=== PATIENT | female | born 1955 | race Caucasian/White ===

== ENCOUNTER 2016-03-30 10:35 | Outpatient (RCR) | payer BC ==
--- OUTSIDE RECORDS SUMMARY | 2016-03-12 10:26 | XMS REPORT | Continuity of Care Document ---
Author Author [facility] Organization [facility] Address Unknown Phone Unavailable Care Team Providers Care Director Of Home Care Hospice Name Role Phone TYSON TALAMANTES MD PCP Insurance Providers Payer Name Policy Number Subscriber Name Relationship Self Pay Verenice Ibarra 18 Self / Same As Patient Advance Directives Directive Response Recorded Date/Time Advance Directives No 02/22/16 12:51pm Health Care Power of Manager Ambulatory No 02/22/16 12:51pm Organ Donor No 02/22/16 12:51pm Resuscitation Status Full Code 02/22/16 12:51pm Chief Complaint and Reason for Visit Chief Complaint SEPSIS 2/2 PNEUMONIA (CAP-FAILED OUT PT [place]) Reason for Visit Sinusitis Urinary tract infection Volume depletion Problems Active Problems Medical Problem Onset Date Status Abnormal CT scan, colon Unknown Acute Costochondritis Unknown Acute Gastroesophageal reflux disease Unknown Acute LLL pneumonia Unknown Acute Pneumonia Unknown Acute Right upper quadrant abdominal pain Unknown Acute Sepsis Unknown Acute Sinusitis Unknown Acute Urinary tract infection Unknown Acute Volume depletion Unknown Acute Medications Current Home Medications Medication Dose Units Route Directions Days/Qty Instructions Start Date Ibuprofen 200 Mg 600 Mg Oral Every 8HRS as needed for Pain TAKES 3 ( 200 MG) TABLETS 11/27/15 Citalopram Hydrobromide 20 Mg 20 Mg Oral Bedtime LAST FILLED 12/08/15 # 30 02/22/16 Acetaminophen With Codeine 1 Each 1 Tab Oral Every 4HRS as needed for Cough 02/23/16 [Vitamin C] 1 Tab Oral Daily 02/23/16 Ipratropium/Albuterol Sulfate (Duoneb) 3 Ml 3 Ml Inhalation Respiratory Every Four Hours 60 USE NEBULIZER EVERY 4 HOURS X 3 DAYS THEN EVERY 6 HOURS X 5 DAYS THEN NEEDED FOR SHORTNESS OF BREATH 02/25/16 Guaifenesin/Dextromethorphan 5 Ml 10 Ml Oral Every 4HRS as needed for Cough 8 02/25/16 Cefdinir (Omnicef) 300 Mg 300 Mg Oral Twice A Day 14 02/25/16 Azithromycin 250 Mg 250 Mg Oral As Directed 6 TAKE 2 TABLETS ON DAY ONE THEN TAKE 1 TABLET DAILY FOR FOUR MORE DAYS 02/25/16 Lactobacillus Acidophilus 1 Each 1 Each Oral Three Times A Day 30 Past Home Medications Medication Directions Ordered Status [id number] 149-Hyal 1 Each Tablet, 1 Each Oral Daily 01/24/10 Discontinued Calcium Carb/Mag Oxide/Vit D3 1 Each Capsule, 1 Each Oral Daily 01/24/10 Discontinued Aspirin 81 Mg Tabec, 81 Mg Oral Daily 01/24/10 Discontinued Bupropion Hcl 150 Mg Tab.sr.24h, 150 Mg Oral Daily 01/24/10 Discontinued Omeprazole 20 Mg Tablet.dr, 20 Mg Oral Daily 01/24/10 Discontinued Niacin 500 Mg Tablet.sa, 500 Mg Oral Daily 01/24/10 Discontinued Prednisone 50 Mg Tab, 50 Mg Oral Daily 01/24/10 Discontinued Ranitidine Hcl 150 Mg Tablet, 1 Tab Oral Twice A Day 01/24/10 Discontinued Varenicline Tartrate 1 Mg Tablet, 1 Mg Oral Twice A Day 01/26/10 Discontinued Prednisone 50 Mg Tab, 1 Tab Oral Every Other Day 01/26/10 Discontinued Ranitidine Hcl 150 Mg Tablet, 1 Tab Oral Twice A Day 01/26/10 Discontinued Prednisone 20 Mg Tab, 20 Mg Oral Daily 01/27/10 Discontinued Prednisone 20 Mg Tab, 0.5 Tab Oral Daily 01/27/10 Discontinued Diphenhydramine Hcl 50 Mg Capsule, 1 Each Oral Three Times A Day 01/27/10 Discontinued Omeprazole 20 Mg Capsule.dr, 20 Mg Oral Daily 05/18/14 Discontinued Metoprolol Succinate 25 Mg Tab.sr.24h, 50 Mg Oral Daily 05/18/14 Discontinued [Nerve Medication] , 05/18/14 Discontinued Atorvastatin 20 Mg Tablet, 40 Mg Oral Daily 05/18/14 Discontinued Omeprazole 20 Mg Capsule.dr, 20 Mg Oral Twice A Day 05/18/14 Discontinued Levofloxacin 500 Mg Tab, 1 Each Oral Daily 05/18/14 Discontinued Citalopram Hydrobromide 20 Mg/10 Ml Solution, 20 Mg Oral Daily 05/29/14 Discontinued Meloxicam (Mobic) 15 Mg Tablet, 15 Mg Oral Bedtime 05/29/14 Discontinued Dexlansoprazole 60 Mg Cap., 60 Mg Oral Daily 05/29/14 Discontinued Sucralfate 1 Gm Tablet, 1 Gm Oral Four Times Daily 05/29/14 Discontinued [B 12] , 1 Ml Sub-Q Weekly 09/02/14 Discontinued Citalopram Hydrobromide 10 Mg Tablet, 20 Mg Oral Daily 09/02/14 Discontinued Oxycodone Hcl (Oxycodone Ir) 5 Mg Tab, 5 Mg Oral Every 4HRS as needed for Pain 09/05/14 Discontinued Metoprolol Tartrate 50 Mg Tablet, 50 Mg Oral Twice A Day 11/27/15 Discontinued Ciprofloxacin Hcl 500 Mg Tablet, 500 Mg Oral Twice A Day 11/27/15 Discontinued Metronidazole 500 Mg Tablet, 500 Mg Oral Three Times A Day 11/27/15 Discontinued Ondansetron 8 Mg Tab.rapdis, 8 Mg Oral Every 6 Hours as needed for Nausea 04/12 Discontinued Tramadol Hcl 50 Mg Tablet, 50 Mg Oral Every 4HRS as needed for Pain 11/27/15 Discontinued Levofloxacin 500 Mg Tablet, 500 Mg Oral Daily 02/10/16 Discontinued Acetaminophen With Codeine 1 Each Tablet, 1 Each Oral Every 4HRS as needed for Cough 02/10/16 Discontinued Metoprolol Succinate 50 Mg Tab.er.24h, 50 Mg Oral Bedtime 02/22/16 Discontinued Omeprazole 20 Mg Tablet., 40 Mg Oral Bedtime 02/22/16 Discontinued Levofloxacin 500 Mg Tablet, 500 Mg Oral Daily 02/23/16 Discontinued Social History Social History Problem Response Recorded Date/Time Alcohol Use Rarely Uses 09/05/2014 4:45pm Recreational Drug Use No 09/05/2014 4:45pm Recent Foreign Travel No 02/22/2016 12:59pm Recent Infectious Disease Exposure No 02/22/2016 12:59pm Hospitalization with Isolation Denies 02/25/2016 2:30pm Sexually Transmitted Disease No 02/22/2016 12:36pm HIV/AIDS No 02/22/2016 12:36pm Smoking Status Current Everyday Smoker 02/22/2016 12:53pm Type Used Cigarettes 02/25/2016 2:30pm Recent Hopitalizations No 02/22/2016 12:36pm Sexually Transmitted Disease No 02/22/2016 12:36pm Hospitalization with Isolation Denies 02/25/2016 2:30pm Query Response Start Date Stop Date Smoking Status Current Everyday Smoker Hospital Discharge Instructions Patient Instructions Physician Instructions Prescription: Transmitted to Pharmacy Patient Instructions: NO WORK UNTIL AFTER SEEN BY DR. TALAMANTES'S OFFICE AT THE BEGINNING OF NEXT WEEK Resume Normal Activity: Yes Discharge Diet: Regular Diet Diet for 24 Hours: No Alcohol Diet After 24 Hours: Clear Liquid if Nauseous Drink 6-8 Glasses of Fluid/Day: Yes Driving Instructions: No Driving for 24 Hours May Return to Work/School/Day: May Return to Work (AFTER 03/03/16) [facility] to [facility] For: ANY CONCERN FOR WORSENING SYMPTOMS OF SHORTNESS OF BREATH OR LIFETHREATENING ILLNESS Symptoms to Reoprt to DrRanjan: Fever Over 101 Degrees F, Pain/Pressure in Chest, Cough Up/Vomit Blood, Diarrhea(Persistant), Shortness of Breath For Problems or Questions: Contact Your Physician, Go to Emergency Room Infection Signs and Symptoms: Skin Itchy or Has a Rash Care Plan Patient Instructions:: NO WORK UNTIL AFTER SEEN BY DR. TALAMANTES'S OFFICE AT THE BEGINNING OF NEXTWEEK Plan of Care Discharge Date 02/25/16 11:20am Disposition 01 HOME, SELF-CARE Instructions/Education Provided Community-Acquired Pneumonia, Adult (DC) Prescriptions See Medication Section Follow-up Orders Chest Pa/Lat (2 View Referrals [facility] (Unspecified) - 03/02/16 Reason(s) for Referral: Pneumonia LLL pneumonia 3:00 pm ARRIVE AT 2:30 PM Care Plan and Goals See Discharge Instructions Section Functional Status Query Response Date Recorded Patient Orientation Person Place Time Situation February 25, 2016 2:30pm Comprehension Ability Understands Concepts February 22, 2016 12:33pm Allergies, Adverse Reactions, Alerts Allergen Type Severity Reaction Status Last Updated NKANo Known Allergies Allergy Unknown Active 08/17/05 Immunizations No immunization records. Vital Signs Acute Vital Signs Vital Response Date/Time Temperature (Fahrenheit) 98.9 degrees F (97.6 - 99.5) 02/25/2016 11:20am Temperature (Calculated Celsius) 37.77236 degrees C (36.4 - 37.5) 02/25/2016 8:00am Temperature Source Tympanic 02/25/2016 11:20am Pulse Rate (adult) 84 bpm (60 - 90) 02/25/2016 11:20am Respiratory Rate 20 bpm (12 - 24) 02/25/2016 11:20am O2 Sat by Pulse Oximetry 93 % (88 - 100) 02/25/2016 11:20am Blood Pressure 119/60 mm Hg 02/25/2016 11:20am Blood Pressure Mean 79 mm Hg 02/25/2016 8:00am Pain Numeric Pain Scale 0-No Pain 02/25/2016 11:20am Height (Feet) 5 feet 02/22/2016 12:59pm Height (Inches) 1.00 inches 02/22/2016 12:59pm Height (Calculated Centimeters) 154.480033 cm 02/22/2016 12:59pm Weight (Pounds) 145 pounds 02/22/2016 12:59pm Weight (Ounces) 0.0 oz 02/22/2016 12:59pm Weight (Calculated Grams) 87714.89 gm 02/22/2016 12:59pm Weight (Calculated Kilograms) 65.219548 kilograms 02/22/2016 12:59pm Calculated BMI 27.4 02/22/2016 12:59pm Capillary Refill Capillary Refill Less Than 3 Seconds 02/22/2016 8:26am Results Laboratory Results Test Name Result Units Flags Reference Collection Date/Time Result Date/ Time Comments White Blood Count 9.0 10^3/uL 4.3-11.0 02/10/2016 4:05pm 02/10/2016 4: 18pm Red Blood Count 4.13 10^6/uL L 4.35-5.85 02/10/2016 4:05pm 02/10/2016 4: 18pm Hemoglobin 12.9 G/DL 11.5-16.0 02/10/2016 4:05pm 02/10/2016 4:18pm Hematocrit 38 % 35-52 02/10/2016 4:05pm 02/10/2016 4:18pm Mean Corpuscular Volume 92 FL 80-99 02/10/2016 4:05pm 02/10/2016 4: 18pm Mean Corpuscular Hemoglobin 31 PG 25-34 02/10/2016 4:05pm 02/10/2016 4: 18pm Mean Corpuscular Hemoglobin Concent 34 G/DL 32-36 02/10/2016 4:05pm 4:18pm Red Cell Distribution Width 12.9 % 10.0-14.5 02/10/2016 4:05pm 2015 4:18pm Platelet Count 230 10^3/uL 130-400 02/10/2016 4:05pm 02/10/2016 4:18pm Mean Platelet Volume 10.4 FL 7.4-10.4 02/10/2016 4:05pm 02/10/2016 4: 18pm Neutrophils (%) (Auto) 63 % 42-75 02/10/2016 4:05pm 02/10/2016 4:18pm Lymphocytes (%) (Auto) 28 % 12-44 02/10/2016 4:05pm 02/10/2016 4:18pm Monocytes (%) (Auto) 7 % 0-12 02/10/2016 4:05pm 02/10/2016 4:18pm Eosinophils (%) (Auto) 2 % 0-10 02/10/2016 4:05pm 02/10/2016 4:18pm Basophils (%) (Auto) 1 % 0-10 02/10/2016 4:05pm 02/10/2016 4:18pm Neutrophils # (Auto) 5.7 X 10^3 1.8-7.8 02/10/2016 4:05pm 02/10/2016 4: 18pm Lymphocytes # (Auto) 2.5 X 10^3 1.0-4.0 02/10/2016 4:05pm 02/10/2016 4: 18pm Monocytes # (Auto) 0.6 X 10^3 0.0-1.0 02/10/2016 4:05pm 02/10/2016 4: 18pm Eosinophils # (Auto) 0.2 10^3/uL 0.0-0.3 02/10/2016 4:05pm 02/10/2016 4 :18pm Basophils # (Auto) 0.1 10^3/uL 0.0-0.1 02/10/2016 4:05pm 02/10/2016 4: 18pm Sodium Level 138 MMOL/L 135-145 02/10/2016 4:05pm 02/10/2016 4:36pm Potassium Level 3.8 MMOL/L 3.6-5.0 02/10/2016 4:05pm 02/10/2016 4:36pm Chloride Level 105 MMOL/L 98-107 02/10/2016 4:05pm 02/10/2016 4:36pm Carbon Dioxide Level 23 MMOL/L 21-32 02/10/2016 4:05pm 02/10/2016 4: 36pm Anion Gap 10 MMOL/L 5-14 02/10/2016 4:05pm 02/10/2016 4:36pm Blood Urea Nitrogen 15 MG/DL 7-18 02/10/2016 4:05pm 02/10/2016 4:36pm Creatinine 0.75 MG/DL 0.60-1.30 02/10/2016 4:05pm 02/10/2016 4:36pm BUN/Creatinine Ratio 20 02/10/2016 4:05pm 02/10/2016 4:36pm Estimat Glomerular Filtration Rate > 60 02/10/2016 4:05pm 2015 4:36pm GFR INTERPRETIVE DATA UNITS FOR ESTIMATED GFR (eGFR): mL/min/1.73 M2 REFERENCE RANGE FOR ESTIMATED GFR (eGFR) eGFR NORMAL eGFR >60 MODERATELY DECREASED eGFR 30-59 SEVERLY DECREASED eGFR 15-29 KIDNEY FAILURE <15 (OR DIALYSIS) Glucose Level 85 MG/DL 70-105 02/10/2016 4:05pm 02/10/2016 4:36pm Calcium Level 9.6 MG/DL 8.5-10.1 02/10/2016 4:0502/10/2016 4:36pm Lactic Acid Level 1.0 MMOL/L 0.5-2.0 02/10/2016 4:05pm 02/10/2016 4: 34pm Pending Laboratory Results Test Name Collection Date/Time Microbiology Results Procedure Source Result Collection Date/Time Result Date/Time Blood Culture Peripheral, Rt Ac No growth 02/10/2016 4:05pm 02/11/2016 2: 48pm Blood Culture Peripheral, Lt Ac No growth 02/10/2016 4:25pm 02/11/2016 2: 48pm Pending Microbiology Results Procedure Source Collection Date/Time Procedures Procedure Status Date Provider(s) Tracing only of electrocardiogram Completed 02/22/16 RITA BOLAND MD Encounters Encounter Location Arrival/Admit Date Discharge/Depart Date Attending Provider Discharged Inpatient [facility] 02/22/16 10:47am 11:20am MELVIN MORGAN DO Departed Emergency Room [facility] 02/10/16 3:34pm 02/09 4:48pm LUL DUPONT [employer]PER[employer] Recent Diagnosis Sinusitis Urinary tract infection Volume depletion
[2016-03-23 12:51] LABS: MEAN CORPUSCULAR HEMOGLOBIN 30 PG (25-34); MEAN CORPUSCULAR HGB CONC 31 G/DL (32-36); MEAN CORPUSCULAR VOLUME 97 FL (80-99); MEAN PLATELET VOLUME 11.9 FL (7.4-10.4); PLATELET COUNT 85 10^3/uL (130-400); RED BLOOD COUNT 3.25 10^6/uL (4.35-5.85); RED CELL DISTRIBUTION WIDTH 14.1 % (10.0-14.5); WHITE BLOOD COUNT 9.4 10^3/uL (4.3-11.0)
[2016-03-23 13:10] LABS: ANION GAP 12 MMOL/L (5-14); BLOOD UREA NITROGEN 24 MG/DL (7-18); BUN/CREATININE RATIO 31; CALCIUM 9.7 MG/DL (8.5-10.1); CARBON DIOXIDE 26 MMOL/L (21-32); CHLORIDE 101 MMOL/L (98-107); CREATININE SERUM 0.78 MG/DL (0.60-1.30); GFR ESTIMATED > 60; GLUCOSE 116 MG/DL (70-105); MAGNESIUM 2.1 MG/DL (1.8-2.4); POTASSIUM 4.3 MMOL/L (3.6-5.0); SODIUM 139 MMOL/L (135-145)
[~2016-03-30 10:35] MED LIST: ACET-2650 PO; ACET-789 PO; ACID1TAB PO; ALPR0.5T7 PO; ASCO-262 PO; ASP81TEC PO; ATOR20TA66 PO; ATOR40TA PO; AZIT250T5 PO; B 12 SQ; BUPR150T PO; CALC1CAP PO; CEFD300C3 PO; CIPR500T4 PO; CITA10TA PO; CITA20SO PO; CITA20TA7 PO; CODE118S2 PO; DEXL60CA PO; DICL100G18 TOP; DIPH50CA PO; DULO60CA6 PO; FAMOTIDINE 20MG/2ML IV (CANCER CTR) ONE; FLUT12AE4 IH; GLUC1TAB60 PO; GUAI480S5 PO; GUAI5SYR PO; HYDR-3816 PO; IBUP200C75 PO; IPRA3AMP INH; IPRA3AMP NEB; LACT1CAP45 PO; LEVO500T2 PO; LEVO500T69 PO; LEVO500T80 PO; LIDO700A6 TOP; LORazepam 0.5 MG (ATIVAN) TABLET CANCER CTR ONE; MELO-195 PO; METO-270 PO; METO-352 PO; METO25TA4 PO; METO50TA2 PO; METR500T21 PO; MORP100S3 PO; NERVE MEDICATION; NIA500ERT PO; NS IV 500 ML (CANCER CENTER) 500 ML ONE; OMEP20CA12 PO; OMEP20TA2 PO; OMEP20TA7 PO; ONDA8TAB13 PO; ONDA8TAB6 PO; OXC5T PO; POLY17PO23 PO; PRD20T PO; PRD50T PO; PROM25TA14 PO; RNT150T PO; SCOP1PAT TOP; SENN-20 PO; SUCR1TAB23 PO; TBO-300S SQ; TRAM50TA2 PO; VARE1TAB17 PO; VITAMIN C PO; diphenhydrAMINE 50 MG/ML INJ (CANCER CENTER) ONE
[2016-03-30 11:34] LABS: BASOPHILS # (AUTO) 0.3 10^3/uL (0.0-0.1); BASOPHILS % (AUTO) 1 % (0-10); EOSINOPHILS % (AUTO) 0 % (0-10); LYMPHOCYTES # (AUTO) 3.6 X 10^3 (1.0-4.0); LYMPHOCYTES % (AUTO) 19 % (12-44); MEAN CORPUSCULAR HEMOGLOBIN 30 PG (25-34); MEAN CORPUSCULAR HGB CONC 31 G/DL (32-36); MEAN CORPUSCULAR VOLUME 97 FL (80-99); MONOCYTES # (AUTO) 0.9 X 10^3 (0.0-1.0); MONOCYTES % (AUTO) 5 % (0-12); NEUTROPHILS # (AUTO) 14.3 X 10^3 (1.8-7.8); NEUTROPHILS % (AUTO) 75 % (42-75); PLATELET COUNT 165 10^3/uL (130-400); RED BLOOD COUNT 3.13 10^6/uL (4.35-5.85); RED CELL DISTRIBUTION WIDTH 15.7 % (10.0-14.5); WHITE BLOOD COUNT 19.1 10^3/uL (4.3-11.0)
[2016-03-30 12:31] LABS: ANION GAP 13 MMOL/L (5-14); BLOOD UREA NITROGEN 29 MG/DL (7-18); BUN/CREATININE RATIO 36; CALCIUM 9.2 MG/DL (8.5-10.1); CARBON DIOXIDE 26 MMOL/L (21-32); CHLORIDE 103 MMOL/L (98-107); GFR ESTIMATED > 60; GLUCOSE 87 MG/DL (70-105); POTASSIUM 4.5 MMOL/L (3.6-5.0); SODIUM 142 MMOL/L (135-145)
[2016-03-31] MEDS ORDERED: ALPR0.5T PO (12:41)
[2016-03-31] MEDS ORDERED: ONDA8TAB6 PO (12:41)
[2016-03-31] MEDS ORDERED: CODE118S2 PO (12:41)
[2016-03-31] MEDS ORDERED: POLY17PO6 PO (12:41)
[2016-03-31] MEDS ORDERED: SCOP1PAT TD (12:41)
[2016-03-31] MEDS ORDERED: HYDR-3816 PO (12:41)
[2016-03-31] MEDS ORDERED: PROM25TA14 PO (12:41)
[2016-03-31] MEDS ORDERED: MORP100S3 PO (12:41)
[2016-03-31] MEDS ORDERED: METO-270 PO (12:41)
[2016-03-31] MEDS ORDERED: SENN-1 PO (12:52)
[2016-03-31] MEDS ORDERED: DICL100G18 TP (12:52)
[2016-03-31] MEDS ORDERED: FLUT12AE4 IH (12:52)
== END 2016-04-08 | disposition home or self-care (01) ==
LOC: ONC 10:35
PROVIDERS: ATTEND Internal Medicine Hematology & Oncology
DX: Z51.11 Encounter for antineoplastic chemotherapy (principal); C34.92 Malignant neoplasm of unspecified part of left bronchus or lung; J91.0 Malignant pleural effusion; C78.7 Secondary malignant neoplasm of liver and intrahepatic bile duct; R00.0 Tachycardia, unspecified; I10 Essential (primary) hypertension; K21.9 Gastro-esophageal reflux disease without esophagitis; F17.210 Nicotine dependence, cigarettes, uncomplicated; Z86.73 Personal history of transient ischemic attack (TIA), and cerebral infarction without residual deficits; Z79.899 Other long term (current) drug therapy
CPT/HCPCS: 36415; 80048; 83735; 85025; 96367; 96375; 96413; 96417

== ENCOUNTER 2016-03-31 09:56 | Inpatient (IN) | payer BC ==
[2016-03-31] VITALS (12 sets, daily range): BP systolic 72–123; BP diastolic 53–74
[~2016-03-31] VITALS: Ht 154.9 cm; Wt 78.9 kg
[~2016-03-31 09:56] MED LIST changes: -FAMOTIDINE 20MG/2ML IV (CANCER CTR) ONE; -LORazepam 0.5 MG (ATIVAN) TABLET CANCER CTR ONE; -NS IV 500 ML (CANCER CENTER) 500 ML ONE; -diphenhydrAMINE 50 MG/ML INJ (CANCER CENTER) ONE
--- OUTSIDE RECORDS SUMMARY | 2016-03-31 10:02 | XMS REPORT | Continuity of Care Document ---
Author Author [facility] Organization [facility] Address Unknown Phone Unavailable Care Team Providers Care Pad Machine Offbearer Name Role Phone TYSON TALAMANTES MD PCP Insurance Providers Payer Name Policy Number Subscriber Name Relationship Self Pay Verenice Ibarra 18 Self / Same As Patient Advance Directives Directive Response Recorded Date/Time Advance Directives No 02/22/16 12:51pm Health Care Power of Motorcycle Subassembler No 02/22/16 12:51pm Organ Donor No 02/22/16 [...] Past Home Medications Medication Directions Ordered Status [id number] 149-Hyal 1 Each Tablet, 1 Each Oral [...] Follow-up Orders Chest Pa/Lat (2 View Referrals [facility] (Unspecified) - 03/02/16 Reason(s) for Referral: Pneumonia [...] - 99.5) 02/25/2016 11:20am Temperature (Calculated Celsius) 37.22253 degrees C (36.4 - 37.5) 02/25/2016 8:00am [...] 1.00 inches 02/22/2016 12:59pm Height (Calculated Centimeters) 154.202721 cm 02/22/2016 12:59pm Weight (Pounds) 145 pounds 02/22/2016 12:59pm Weight (Ounces) 0.0 oz 02/22/2016 12:59pm Weight (Calculated Grams) 70329.89 gm 02/22/2016 12:59pm Weight (Calculated Kilograms) 65.844769 kilograms 02/22/2016 12:59pm Calculated BMI 27.4 02/22/2016 [...] Discharge/Depart Date Attending Provider Discharged Inpatient [facility] 02/22/16 10:47am 11:20am MELVIN MORGAN DO Departed Emergency Room [facility] 02/10/16 3:34pm 02/09 4:48pm LUL DUPONT [employer] Recent Diagnosis Sinusitis Urinary tract infection Volume depletion
[2016-03-31 10:30] LABS: BASOPHILS # (AUTO) 0.1 10^3/uL (0.0-0.1); BASOPHILS % (AUTO) 1 % (0-10); EOSINOPHILS % (AUTO) 0 % (0-10); LYMPHOCYTES # (AUTO) 2.2 X 10^3 (1.0-4.0); LYMPHOCYTES % (AUTO) 9 % (12-44); MEAN CORPUSCULAR HEMOGLOBIN 30 PG (25-34); MEAN CORPUSCULAR HGB CONC 32 G/DL (32-36); MEAN CORPUSCULAR VOLUME 95 FL (80-99); MEAN PLATELET VOLUME 10.1 FL (7.4-10.4); MONOCYTES # (AUTO) 1.3 X 10^3 (0.0-1.0); MONOCYTES % (AUTO) 5 % (0-12); NEUTROPHILS # (AUTO) 21.2 X 10^3 (1.8-7.8); NEUTROPHILS % (AUTO) 85 % (42-75); PLATELET COUNT 153 10^3/uL (130-400); RED BLOOD COUNT 3.11 10^6/uL (4.35-5.85); RED CELL DISTRIBUTION WIDTH 15.6 % (10.0-14.5); WHITE BLOOD COUNT 24.8 10^3/uL (4.3-11.0)
[2016-03-31] MEDS ORDERED: NS IV 1000 ML 2,000 ML IV PRN (10:30)
--- NOTE | 2016-03-31 10:32 | ED General ---
General Chief Complaint: Fever-Adult/Adol Stated Complaint: FEVER IRR LAB RESULTS Nursing Triage Note: TO ROOM 07 WITH COMPLAINTS OF ABNORMAL LABS WITH ROUTINE CHECK YESTERDAY AND NOT FEELING WELL STARTING LAST NIGHT. ALSO HAS HAD A FEVER OF 101. 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 ALSO TOOK HYDROCODONE AT 0900. Nursing Sepsis Screen: Possible Sepsis Risk Source of Information: Patient Exam Limitations: No Limitations History of Present Illness Time Seen by Provider: 10:22 Initial Comments Here with report of abnormal labs and a fever today. 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 She had labs drawn yesterday and had white count noted at 19,000. Today she had the fever. Sent here for further evaluation. She is chronically short of breath but not worse than typical. She does have chronic cough and that is about typical. She was on steroids and her last dose steroids was yesterday. Denies nausea or vomiting. Timing/Duration: 1-2 Days, Getting Worse Severity: Moderate Associated Systoms: Cough Fever/ChillsNo Nausea/Vomiting, Shortness of Air Allergies and Home Medications Allergies Coded Allergies: NKANo Known Allergies (Verified Allergy, Unknown, 03/12/16) Home Medications Acetaminophen 650 Mg Tablet.er 2 TAB PO Q8H PRN PRN PAIN (Reported) Alprazolam 0.5 Mg Tablet #90 0.5 MG PO Q4HR PRN PRN PAIN Prescribed by: TYSON SALCEDO on 03/19/16 0936 Ascorbate Calcium 500 Mg Tablet 500 MG PO DAILY (Reported) Atorvastatin Calcium 40 Mg Tablet 40 MG PO HS (Reported) Citalopram Hydrobromide 20 Mg Tablet 20 MG PO HS (Reported) Diclofenac Sodium 100 Gm Gel..gram. #3 2 GM TOP QID Prescribed by: SOULEYMANE GOMEZ on 03/19/16 1434 Fluticasone/Salmeterol 12 Gm Hfa.aer.ad #3 0 PUFF IH BID@,20 Prescribed by: SOULEYMANE GOMEZ on 03/19/16 1434 Hydrocodone/Acetaminophen 1 Each Tablet #120 1 EA PO Q6HR Prescribed by: TYSON SALCEDO on 03/19/16 0936 Ibuprofen 200 Mg Capsule 400-600 MG PO Q8H PRN PRN PAIN (Reported) TAKES 3 (200 MG) TABLETS Ipratropium/Albuterol Sulfate 3 Ml Ampul.neb 3 ML IH Q6H PRN PRN SHORTNESS OF BREATH (Reported) L. Acidophilus/Bulgaricus 1 Each Tablet #90 1 TAB.CHEW PO WM Prescribed by: TYSON SALCEDO on 03/19/16 0936 Lactobacillus Acidophilus 1 Each Capsule 10Days 1 CAP PO TID (Reported) #30 FILLED 02-25-16 Lidocaine 700 Mg Adh..patch #60 1 EA TOP DAILY Prescribed by: SOULEYMANE GOMEZ on 03/19/16 1434 Metoprolol Succinate 25 Mg Tab.er.24h #60 25 MG PO BID Prescribed by: TYSON SALCEDO on 03/19/1636 Morphine Sulfate 100 Mg/5 Ml Solution #30 10-20 MG PO Q2H PRN PRN PAIN Prescribed by: TYSON SALCEDO on 03/19/16 1038 Omeprazole 20 Mg Capsule.dr 20 MG PO DAILY (Reported) Ondansetron HCl 8 Mg Tablet #90 8 MG PO TID Prescribed by: TYSON SALCEDO on 03/19/16935 Polyethylene Glycol 3350 17 Gm Powd.pack #30 17 GM PO HS Prescribed by: TYSON SALCEDO on 03/19/1636 Prednisone 20 Mg Tab #22 20 MG PO DAILY Take 3 tabs(60mg)daily,decrease by 1/2 tab(10mg)every other day. Prescribed by: TYSON SALCEDO on 03/19/16 1042 Promethazine HCl 25 Mg Tablet #60 25 MG PO Q6H PRN PRN NAUSEA/VOMITING Prescribed by: TYSON SALCEDO on 03/19/16935 Promethazine HCl/Codeine 118 Ml Syrup #8 5 ML PO Q6HR PRN PRN COUGH Prescribed by: TYSON SALCEDO on 03/19/16935 Scopolamine 1 Each Patch.td72 #30 1.5 MG TOP Q72H Prescribed by: SOULEYMANE GOMEZ on 03/19/16 1434 Sennosides/Docusate Sodium 1 Each Tablet #60 1 EA PO BID Prescribed by: TYSON SALCEDO on 03/19/16935 Tbo-Filgrastim 300 Mcg/0.5 Ml Syringe #3 300 MCG SQ DAILY PT TO RECEIVE INJECTION AT HOSPITAL Prescribed by: TYSON SALCEDO on 03/19/16 0943 Constitutional: see HPI chills fever EENTM: no symptoms reported Respiratory: see HPI cough dyspnea on exertion short of breath Cardiovascular: no symptoms reported Gastrointestinal: no symptoms reportedNo nausea, No vomiting Genitourinary: no symptoms reported Musculoskeletal: no symptoms reported Skin: no symptoms reported Psychiatric/Neurological: No Symptoms Reported Hematologic/Lymphatic: No Symptoms Reported All Other Systems Reviewed Negative Unless Noted: Yes Past Dstlwlp-Yswizz-Omfcyh Hx Patient Social History Alcohol Use: Denies Use Recreational Drug Use: No Smoking Status: Former Smoker Type Used: Cigarettes 2nd Hand Smoke Exposure: Yes Recent Foreign Travel: No Contact w/Someone Who Travel: No Recent Infectious Disease Expo: No Recent Hopitalizations: No Physical Abuse Screen: No Sexual Abuse: No Immunizations Up To Date Tetanus Booster (TDap): Unknown Date of Influenza Vaccine: Dec 29, 2015 Seasonal Allergies Seasonal Allergies: No Surgeries HX Surgeries: Yes (RIGHT EYE REMOVED DUE TO CA, FOOT-BUIONECTOMY, HIATAL HERNIA ) Surgeries: Abdominal, Eye Surgery, Hysterectomy Respiratory Hx Respiratory Disorders: Yes Respiratory Disorders: Pneumonia Cardiovascular Hx Cardiac Disorders: Yes (TACHYCARDIA) Cardiac Disorders: Hypertension, Palpitations Neurological Hx Neurological Disorders: Yes (CVA 2004) Neurological Disorders: Stroke Reproductive System Hx Reproductive Disorders: No Sexually Transmitted Disease: No HIV/AIDS: No Female Reproductive Disorders: Endometriosis 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 Genitourinary Hx Genitourinary Disorders: No Gastrointestinal Hx Gastrointestinal Disorders: Yes (SURGICALLY REPAIRED) Gastrointestinal Disorders: Gastroesophageal Reflux, Hiatal Hernia Musculoskeletal Hx Musculoskeletal Disorders: Yes Endocrine Hx Endocrine Disorders: No HEENT HX ENT Disorders: Yes (ARTIFICIAL RIGHT EYE) HEENT Disorders: Cataract 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, SMALL CELL EXTENSIVE CA STAGE 4) Cancer: Lung Psychosocial Hx Psychiatric Problems: No Integumentary HX Skin/Integumentary Disorder: No Blood Transfusions Hx Blood Disorders: No Adverse Reaction to a Blood Tr: No Reviewed Nursing Assessment Reviewed/Agree w Nursing PMH: Yes Family Medical History Significant Family History: Heart Disease, Cancer Physical Exam-Suspected Sepsis Physical Exam Vital Signs Vital Sign - Last 12Hours 03/31/16 10:10 Temp 101.4 Pulse 109 Resp 18 B/P 93/65 Pulse Ox 95 Capillary Refill : Less Than 3 Seconds Blood Pressure Mean: 74 General Appearance: No Apparent Distress WD/WN HEENT: Pharynx Normal Other (right eye blind) Neck: Non Tender Supple Respiratory: Decreased Breath Sounds (left lung absent breath sounds in the middle and lower area.) Cardiovascular: Regular Rate, Rhythm No Murmur Gastrointestinal: Non Tender Soft Back: Normal Inspection No CVA Tenderness No Vertebral Tenderness Extremity: Non Tender No Calf Tenderness Neurologic/Psychiatric: Alert Oriented x3 Skin: normal color warm/dry Progress/Results/Core Measures Suspected Sepsis Recent Fever Within 48 Hours: Yes Infection Criteria Present: Suspected New Infection New/Unexplained Altered Menta: No Sepsis Screen: Possible Sepsis Risk Sepsis Diagnosis: SIRS Temperature:101.4 Pulse: 109 Respiratory Rate: 18 Laboratory Tests 03/31/16 10:15: White Blood Count 24.8H Blood Pressure 93 /65 Mean: 74 Laboratory Tests 03/31/16 10:15: Creatinine 0.83, INR Comment 0.9, Platelet Count 153, Total Bilirubin 0.5 Results/Orders Lab Results Laboratory Tests Test 03/31/16 10:15 03/31/16 10:30 Range/Units Activated Partial Thromboplast Time 24 24-35 SEC Alanine Aminotransferase (ALT/SGPT) 167 H 0-55 U/L Albumin 3.5 3.2-4.5 G/DL Alkaline Phosphatase 120 40-136 U/L Anion Gap 11 5-14 MMOL/L Anisocytosis SLIGHT Aspartate Amino Transf (AST/SGOT) 96 H 5-34 U/L BUN/Creatinine Ratio 28 Band Neutrophils 11 % Basophils # (Auto) 0.1 0.0-0.1 10^3/uL Basophils % (Manual) 0 % Basophils (%) (Auto) 1 0-10 % Blood Urea Nitrogen 23 H 7-18 MG/DL Calcium Level 9.8 8.5-10.1 MG/DL Carbon Dioxide Level 27 21-32 MMOL/L Chloride Level 96 L 98-107 MMOL/L Creatinine 0.83 0.60-1.30 MG/DL Eosinophils # (Auto) 0.0 0.0-0.3 10^3/uL Eosinophils % (Manual) 0 % Eosinophils (%) (Auto) 0 0-10 % Estimat Glomerular Filtration Rate > 60 Glucose Level 103 70-105 MG/DL Hematocrit 29 L 35-52 % Hemoglobin 9.4 L 11.5-16.0 G/DL INR Comment 0.9 0.8-1.4 Lactic Acid Level 1.8 0.5-2.0 MMOL/L Lymphocytes # (Auto) 2.2 1.0-4.0 X 10^3 Lymphocytes % (Manual) 8 % Lymphocytes (%) (Auto) 9 L 12-44 % Mean Corpuscular Hemoglobin 30 25-34 PG Mean Corpuscular Hemoglobin Concent 32 32-36 G/DL Mean Corpuscular Volume 95 80-99 FL Mean Platelet Volume 10.1 7.4-10.4 FL Monocytes # (Auto) 1.3 H 0.0-1.0 X 10^3 Monocytes % (Manual) 2 % Monocytes (%) (Auto) 5 0-12 % Neutrophils # (Auto) 21.2 H 1.8-7.8 X 10^3 Neutrophils % (Manual) 79 % Neutrophils (%) (Auto) 85 H 42-75 % Platelet Count 153 130-400 10^3/uL Polychromasia SLIGHT Potassium Level 4.2 3.6-5.0 MMOL/L Prothrombin Time 12.3 12.2-14.7 SEC Red Blood Count 3.11 L 4.35-5.85 10^6/uL Red Cell Distribution Width 15.6 H 10.0-14.5 % Sodium Level 134 L 135-145 MMOL/L Total Bilirubin 0.5 0.1-1.0 MG/DL Total Protein 5.8 L 6.4-8.2 G/DL White Blood Count 24.8 H 4.3-11.0 10^3/uL Urine Bacteria NEGATIVE /HPF Urine Bilirubin NEGATIVE NEGATIVE Urine Casts NONE /LPF Urine Clarity CLEAR Urine Color YELLOW Urine Crystals NONE /LPF Urine Culture Indicated NO Urine Glucose (UA) NEGATIVE NEGATIVE Urine Ketones NEGATIVE NEGATIVE Urine Leukocyte Esterase NEGATIVE NEGATIVE Urine Mucus NEGATIVE /LPF Urine Nitrite NEGATIVE NEGATIVE Urine Protein NEGATIVE NEGATIVE Urine RBC NONE /HPF Urine RBC (Auto) NEGATIVE NEGATIVE Urine Specific [place] 1.015 L 1.016-1.022 Urine Urobilinogen NORMAL NORMAL MG/DL Urine WBC NONE /HPF Urine White Blood Cell Casts /LPF Urine pH 6.5 5-9 My Orders Orders-DIVINA HENDERSON MD Cbc With Automated Diff (03/31/16 10:02) Comprehensive Metabolic Panel (03/31/16 10:02) Lactic Acid Analyzer (03/31/16 10:02) Blood Culture (03/31/16 10:02) Sputum Culture (03/31/16 10:02) Ua Culture If Indicated (03/31/16 10:02) Protime With Inr (03/31/16 10:02) Partial Thromboplastin Time (03/31/16 10:02) Chest 1 View, Ap/Pa Only (03/31/16 10:02) Saline Lock/Iv-Start (03/31/16 10:02) Vital Signs Adult Sepsis Patie Q1HR (03/31/16 10:02) Manual Differential (03/31/16 10:15) Saline Lock/Iv-Start (03/31/16 10:30) Ns Iv 1000 Ml (Sodium Chloride 0.9%) (03/31/16 10:30) Hydrocortisone Injection (Solu-Cortef In (03/31/16 11:00) Levofloxacin 750 Mg/150 Ml Iv (Levaquin (03/31/16 11:28) Medications Given in ED Current Medications Medications Dose Ordered Sig/Buzz Route Start Time Stop Time Status Last Admin Dose Admin Hydrocortisone Sodium Succinate 100 mg ONCE ONCE IV 03/31/16 11:00 03/31/16 11:02 DC 03/31/16 11:09 100 MG Sodium Chloride 2,000 ml @ 1,000 mls/hr PRN PRN IV 03/31/16 10:30 03/31/16 10:53 1,000 MLS/HR Vital Signs/I&O Vital Sign - Last 12Hours 03/31/16 03/31/16 03/31/16 10:10 10:56 12:00 Temp 101.4 100.1 99.0 Pulse 109 Resp 18 B/P 93/65 Pulse Ox 95 Capillary Refill : Less Than 3 Seconds Blood Pressure Mean: 74 Progress Note : Progress Note Seen and evaluated. IV, labs, chest x-ray, blood cultures ordered. Patient has tenuous blood pressure. Normal saline at 30 mL/kg IV ordered as a bolus over 2 hours. White count noted to be significantly elevated. Hydrocortisone 100 mg IV ordered and given due to hypotension and recent long-term steroid use. Levaquin and 750 mg IV ordered. I did discuss the case with Dr. Salcedo at 1207. Patient has findings of septic shock with hypotension that is improving somewhat after steroid and saline bolus. ICU admission indicated. All of findings and concerns discussed with patient and family who agree with plan. Diagnostic Imaging Diagonstic Imaging: Xray Plain Films/CT/US/NM/MRI: chest Comments NAME: JAMMIE IBARRA [facility] REC#: [id number] PT STATUS: REG ER : 1955 PHYSICIAN: DIVINA HENDERSON MD ADMIT DATE: 03/31/16/ER Signed Date of Exam: 03/31/16 CHEST 1 VIEW, AP/PA ONLY Portable upright radiograph of the chest. INDICATION: Fever. COMPARISON: 03/16/16. FINDINGS: There is opacification of most of the left hemithorax with suggestion of underlying large effusion and atelectasis in the left lung. The heart and mediastinum are slightly deviated to the left. The right lung is clear. No pneumothorax. Infusion port is seen with no change. IMPRESSION: Large left pleural effusion and left lung atelectasis. Underlying mass or consolidation could be obscured on the opacified area. Dictated by: Dictated on workstation # [id number] Dict: 03/31/16 1051 Trans: 03/31/16 1113 [id number] Interpreted by: AN LAWRENCE MD Electronically signed by:AN LAWRENCE MD 03/31/16 1115 Departure Communication Time/Spoke to Admitting Phy: 12:07 Impression Impression: Primary Impression: Pneumonia Qualified Code: J18.9 - Pneumonia, unspecified organism Additional Impressions: Small cell lung cancer Qualified Code: C34.92 - Malignant neoplasm of unspecified part of left bronchus or lung Septic shock Disposition: ADMITTED INPATIENT Condition: Critical Decision to Admit Reason: Admit from ER (General) Decision to Admit/Date: Mar 31, 2016 Time/Decision to Admit Time: 12:07 Departure-Patient Inst. Referrals: TYSON SALCEDO MD (PCP/Family) Primary Care Physician DIVINA HENDERSON MD Mar 31, 2016 10:32
[2016-03-31 10:38] LABS: BILIRUBIN,URINE NEGATIVE (NEGATIVE); KETONES,URINE NEGATIVE (NEGATIVE); LEUKOCYTE ESTERASE ,URINE NEGATIVE (NEGATIVE); NITRITE,URINE NEGATIVE (NEGATIVE); PH,URINE 6.5 (5-9); PROTEIN,URINE NEGATIVE (NEGATIVE); UROBILINOGEN,URINE NORMAL (NORMAL)
[2016-03-31 10:39] LABS: INR 0.9 (0.8-1.4); PROTHROMBIN TIME PATIENT 12.3 SEC (12.2-14.7)
[2016-03-31 10:48] LABS: ALANINE AMINOTRANSFERASE 167 U/L (0-55); ALBUMIN 3.5 G/DL (3.2-4.5); ANION GAP 11 MMOL/L (5-14); ASPARTATE AMINO TRANSFERASE 96 U/L (5-34); BILIRUBIN,TOTAL 0.5 MG/DL (0.1-1.0); BLOOD UREA NITROGEN 23 MG/DL (7-18); BUN/CREATININE RATIO 28; CALCIUM 9.8 MG/DL (8.5-10.1); CARBON DIOXIDE 27 MMOL/L (21-32); CHLORIDE 96 MMOL/L (98-107); CREATININE SERUM 0.83 MG/DL (0.60-1.30); GFR ESTIMATED > 60; GLUCOSE 103 MG/DL (70-105); POTASSIUM 4.2 MMOL/L (3.6-5.0); SODIUM 134 MMOL/L (135-145); TOTAL PROTEIN 5.8 G/DL (6.4-8.2)
[2016-03-31 10:54] LABS: ANISOCYTOSIS SLIGHT; BAND NEUTROPHILS 11 %; BASOPHILS % (MANUAL) 0 %; EOSINOPHILS % (MANUAL) 0 %; LYMPHOCYTES % (MANUAL) 8 %; NEUTROPHILS % (MANUAL) 79 %; POLYCHROMASIA SLIGHT
[2016-03-31] MEDS ORDERED: HYDROCORTISONE 100 MG/2 ML (Solu-CORTEF) VIAL IV ONE (11:00)
--- NOTE | 2016-03-31 11:02 | Diagnostic Imaging Report ---
Portable upright radiograph of the chest. INDICATION: Fever. COMPARISON: 03/16/16. FINDINGS: There is opacification of most of the left hemithorax with suggestion of underlying large effusion and atelectasis in the left lung. The heart and mediastinum are slightly deviated to the left. The right lung is clear. No pneumothorax. Infusion port is seen with no change. IMPRESSION: Large left pleural effusion and left lung atelectasis. Underlying mass or consolidation could be obscured on the opacified area. Dictated by: Dictated on workstation # [id number]
[2016-03-31] MEDS ORDERED: LEVOFLOXACIN 750 MG/150 ML IV 150 ML IV STA (11:28)
[2016-03-31] MEDS ORDERED: METO-270 PO (12:41)
[2016-03-31] MEDS ORDERED: POLY17PO6 PO (12:41)
[2016-03-31] MEDS ORDERED: HYDR-3816 PO (12:41)
[2016-03-31] MEDS ORDERED: ONDA8TAB6 PO (12:41)
[2016-03-31] MEDS ORDERED: ALPR0.5T PO (12:41)
[2016-03-31] MEDS ORDERED: SCOP1PAT TD (12:41)
[2016-03-31] MEDS ORDERED: CODE118S2 PO (12:41)
[2016-03-31] MEDS ORDERED: PROM25TA14 PO (12:41)
[2016-03-31] MEDS ORDERED: MORP100S3 PO (12:41)
[2016-03-31] MEDS ORDERED: FLUT12AE4 IH (12:52)
[2016-03-31] MEDS ORDERED: DICL100G18 TP (12:52)
[2016-03-31] MEDS ORDERED: SENN-1 PO (12:52)
[2016-03-31] MEDS ORDERED: PIPERACILLIN SODIUM/TAZOBACTAM 4.5 GM in NS (BAXTER MINI) 100 ML IV NR (13:35)
[2016-03-31] MEDS ORDERED: VANCOMYCIN 1 GM ADD-VANTAGE VIAL IV ONE (13:44)
[2016-03-31] MEDS ORDERED: PIPERACILLIN/TAZO 4.5 GM VIAL (ZOSYN) IV ONE (13:45)
[2016-03-31] MEDS ORDERED: NORMAL SALINE (BAXTER MINI) 0 ML IV ONE (13:45)
[2016-03-31] MEDS ORDERED: SODIUM CHLORIDE (ADD-VANTAGE) 250 ML ONE (13:45)
[2016-03-31] MEDS ORDERED: LEVOFLOXACIN 750 MG/150 ML IV 150 ML IV SCH (14:00)
[2016-03-31] MEDS ORDERED: VANCOMYCIN IV NR (14:02)
[2016-03-31] MEDS ORDERED: NS IV NR (14:02)
[2016-03-31] MEDS: NS IV 1000 ML 1,000 ML IV SCH ×3 (14:24→22:16)
[2016-03-31] MEDS ORDERED: NORMAL SALINE IV SCH (14:24)
[2016-03-31] MEDS ORDERED: VANCOMYCIN IV SCH (14:24)
[2016-03-31] MEDS: VASOPRESSIN INJECTION 20 UNIT in NS (IVPB) 100 ML IV SCH ×2 (15:33→21:49)
[2016-03-31] MEDS: NOREPINEPHRINE FOR DRIPS 4 MG in D5W 250 ML (IVPB) 250 ML IV SCH ×2 (15:33→20:09)
[2016-03-31] MEDS: HYDROCORTISONE 100 MG/2 ML (Solu-CORTEF) VIAL IV SCH ×2 (15:34→20:39)
[2016-03-31] MEDS ORDERED: HYDROcodone/APAP 7.5 MG/325 MG (LORTAB, LORCET PLUS) TABLET PO ONE (16:34)
[2016-03-31] MEDS: HYDROcodone/APAP 7.5 MG/325 MG (LORTAB, LORCET PLUS) TABLET PO PRN ×2 (16:42→23:10)
[2016-03-31] MEDS: inSUlin (REGULAR) HUMAN 1 UNIT/0.01 ML (CHARGE PER UNIT) SC SCH ×2 (16:47→21:00)
[2016-03-31 16:58] LABS: MEAN PLATELET VOLUME 9.4 FL (7.4-10.4); RED BLOOD COUNT 2.53 10^6/uL (4.35-5.85); RED CELL DISTRIBUTION WIDTH 15.6 % (10.0-14.5); WHITE BLOOD COUNT 18.5 10^3/uL (4.3-11.0)
[2016-03-31 17:17] LABS: ALANINE AMINOTRANSFERASE 126 U/L (0-55); ALBUMIN 2.9 G/DL (3.2-4.5); ANION GAP 10 MMOL/L (5-14); ASPARTATE AMINO TRANSFERASE 68 U/L (5-34); BILIRUBIN,TOTAL 0.3 MG/DL (0.1-1.0); BLOOD UREA NITROGEN 21 MG/DL (7-18); BUN/CREATININE RATIO 24; CALCIUM 8.6 MG/DL (8.5-10.1); CARBON DIOXIDE 23 MMOL/L (21-32); CHLORIDE 105 MMOL/L (98-107); CREATININE SERUM 0.89 MG/DL (0.60-1.30); GFR ESTIMATED > 60; GLUCOSE 134 MG/DL (70-105); POTASSIUM 4.2 MMOL/L (3.6-5.0); SODIUM 138 MMOL/L (135-145); TOTAL PROTEIN 4.8 G/DL (6.4-8.2)
--- NOTE | 2016-03-31 18:37 | History & Physicial ---
History of Present Illness History of Present Illness Reason for visit/HPI PT IS A 60 Y/O FEMALE WHO IS KNOWN TO ME FROM CLINIC AND PREVIOUS HOSPITALIZATIONS. THE PATIENT HAS A POST-OBSTRUCTIVE LESION IN HER LEFT LUNG AND HAS HAD ONE ROUND OF CHEMOTHERAPY X 1 ROUND IN FEBRUARY PRIOR TO DISCHARGE AND SECOND ROUND OF CHEMOTHERAPY WAS DUE TO BE GIVEN 04/05/16. THE PATIENT WAS SEEN IN THE OFFICE YESTERDAY AND WAS FEELING GOOD AT THAT TIME. SHE REPORTS THAT SHE HAS BEEN INTERMITTENTLY WALKING AROUND HER HOUSE WITHOUT HER OXYGEN ON, AND HAS FALLEN OUT OF HER BED. Date of Admission Mar 31, 2016 at 12:38 I consulted on this patient on 03/31/16 18:31 Attending Physician Tyson Salcedo MD Admitting Physician Tyson Salcedo MD Consult BOBO SAMUELS DO Allergies and Home Medications Allergies Coded Allergies: NKANo Known Allergies (Verified Allergy, Unknown, 03/12/16) Home Medications Acetaminophen 650 Mg Tablet.er 2 TAB PO Q8H PRN PRN PAIN (Reported) Alprazolam 0.5 Mg Tablet 0.5 MG PO Q4H PRN PRN ANXIETY (Reported) Ascorbate Calcium 500 Mg Tablet 500 MG PO DAILY (Reported) Atorvastatin Calcium 40 Mg Tablet 40 MG PO HS (Reported) Citalopram Hydrobromide 20 Mg Tablet 20 MG PO HS (Reported) Diclofenac Sodium 100 Gm Gel..gram. 2 GM TP QID (Reported) Fluticasone/Salmeterol 12 Gm Hfa.aer.ad 2 PUFF IH 0700,1900 (Reported) Hydrocodone/Acetaminophen 1 Each Tablet 1-2 TAB PO Q6H PRN PRN PAIN (Reported) Ibuprofen 200 Mg Capsule 600 MG PO Q8H PRN PRN PAIN (Reported) TAKES 3 (200 MG) TABLETS Ipratropium/Albuterol Sulfate 3 Ml Ampul.neb 3 ML NEB 0700,1100,1500,1900 ( Reported) Metoprolol Succinate 25 Mg Tab.er.24h 25 MG PO BID (Reported) Morphine Sulfate 100 Mg/5 Ml Solution 10-20 MG PO Q2H PRN PRN PAIN (Reported) Omeprazole 20 Mg Capsule.dr 20 MG PO DAILY (Reported) Ondansetron HCl 8 Mg Tablet 8 MG PO TID (Reported) Polyethylene Glycol 3350 17 Gm Powd.pack 17 GM PO HS PRN PRN CONSTIPATION ( Reported) Promethazine HCl 25 Mg Tablet 25 MG PO Q6H PRN PRN NAUSEA/VOMITING (Reported) Promethazine HCl/Codeine 118 Ml Syrup 5-10 ML PO Q6H PRN PRN COUGH (Reported) Scopolamine 1 Each Patch.td72 1 PATCH TD Q72H (Reported) Sennosides/Docusate Sodium 1 Each Tablet 1 TAB PO BID (Reported) Past Frkmwgl-Lbfwfi-Juzdil Hx Patient Social History Marrital Status: Number of Children: 4 Living Status: LIVES IN HER HOME - CHILDREN PROVIDING CARE FOR HER Employed/Student: employed (CURRENTLY ON 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 LEAVE FROM WORK) Alcohol Use: Denies Use Recreational Drug Use: No Smoking Status: Former Smoker Type Used: Cigarettes 2nd Hand Smoke Exposure: Yes Physical Abuse Screen: No Sexual Abuse: No Recent Foreign Travel: No Contact w/other who traveled: No Recent Hopitalizations: No Recent Infectious Disease Expo: No Immunizations Up To Date Tetanus Booster (TDap): Unknown Date of Influenza Vaccine: Dec 29, 2015 Seasonal Allergies Seasonal Allergies: No Surgeries HX Surgeries: Yes (RIGHT EYE REMOVED DUE TO CA, FOOT-BUIONECTOMY, HIATAL HERNIA ) Surgeries: Abdominal, Eye Surgery, Hysterectomy Respiratory Hx Respiratory Disorders: Yes (LUNG CANCER) Cardiovascular Hx Cardiovascular Disorders: Yes (TACHYCARDIA) Cardiac Disorders: Hypertension, Palpitations Neurological Hx Neurological Disorders: Yes (CVA 2004) Neurological Disorders: Stroke Reproductive System : No Hx Reproductive Disorders: No Sexually Transmitted Disease: No HIV/AIDS: No Female Reproductive Disorders: Endometriosis 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 Genitourinary Hx Genitourinary Disorders: No Gastrointestinal Hx Gastrointestinal Disorders: Yes (SURGICALLY REPAIRED) Gastrointestinal Disorders: Gastroesophageal Reflux, Hiatal Hernia Musculoskeletal Hx Musculoskeletal Disorders: Yes Musculoskeletal Disorders: Arthritis Endocrine Hx Endocrine Disorders: No HEENT HX ENT Disorders: Yes (ARTIFICIAL RIGHT EYE) HEENT Disorders: Cataract 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, SMALL CELL EXTENSIVE CA STAGE 4) Cancer: Lung Psychosocial Hx Psychiatric Problems: Yes Behavioral Health Disorders: Anxiety, Depression Integumentary HX Skin/Integumentary Disorder: No Blood Transfusions Hx Blood Disorders: No Adverse Reaction to a Blood Tr: No Reviewed Nursing Assessment Reviewed/Agree w Nursing PMH: Yes Family Medical History Significant Family History: Heart Disease, Cancer Constitutional: fever malaise weakness EENTM: vision loss (CHRONIC)No hoarseness, No throat swelling Respiratory: cough dyspnea on exertion short of breath Cardiovascular: No chest pain, No edema, No palpitations Gastrointestinal: No abdominal pain, constipation (INTERMITTENT) Genitourinary: No decreased output, No dysuria, frequency Musculoskeletal: No back pain, No muscle weakness Skin: no symptoms reported Psychiatric/Neurological: AnxietyDenies Headache, Denies Numbness, Denies Paresthesia, Weakness All Other Systems Reviewed Negative Unless Noted: Yes Physical Exam Vital Signs Vital Sign - Last 12Hours 03/31/16 10:10 Temp 101.4 Pulse 109 Resp 18 B/P 93/65 Pulse Ox 95 O2 Delivery Nasal Cannula O2 Flow Rate 3 Capillary Refill : Less Than 3 Seconds General Appearance: No Apparent Distress WD/WN Eyes: Left Eye PERRL HEENT: Pharynx Normal Neck: Full Range of Motion Supple Respiratory: Chest Non Tender Decreased Breath Sounds (ON LEFT - NO BREATH SOUNDS, ON RIGHT CLEAR TO AUSCULTATION) Cardiovascular: Regular Rate, Rhythm No Edema Gastrointestinal: Normal Bowel Sounds No Organomegaly No Pulsatile Mass Non Tender Soft Rectal: Deferred Back: Normal Inspection No CVA Tenderness No Vertebral Tenderness Extremity: Normal Capillary Refill No Calf Tenderness No Pedal Edema Neurologic/Psychiatric: Alert Oriented x3 No Motor/Sensory Deficits Normal 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 HYDROPNEUMOTHORAX -WITH PNEUMONIA - CONTINUE WITH TREATMENT OF POST- OBSTRUCTIVE PNEUMONIA. PT RECENTLY OFF OF STEROIDS - PT GIVEN STRESS DOSE OF STEROIDS TODAY. CONSULT PLACED TO DR. SAMUELS WHO WILL SEE PT TOMORROW. SMALL CELL LUNG CANCER - PT NOT DUE TO REPEAT CHEMOTHERAPY UNTIL 04/05/16, WILL CONSULT ONCOLOGY TOMORROW IF NEEDED. COUGH - CONTINUE WITH CURRENT COUGH MEDICATIONS POST-OBSTRUCTIVE PNEUMONIA -STARTED ON ANTIBIOTICS COPD DUE TO PERSISTENT TOBACCOISM - MONITOR SYMPTOMS UNCONTROLLED PAIN - RESTART HYDROCODONE. CHRONIC NAUSEA - RESTART ZOFRAN, SCOPOLAMINE PATCH, PROMETHAZINE Admission Diagnosis SEPSIS LEUKOCYTOSIS HYDROPNEUMOTHORAX POST-OBSTRUCTIVE PNEUMONIA SMALL CELL LUNG CANCER DYSPNEA HYPOTENSION TACHYCARDIA CHEST PAIN NAUSEA Clinical Quality Measures DVT/VTE Risk/Contraindication: Risk Factor Score Per Nursin RFS Level Per Nursing on Admit: 4+=Very High TYSON SALCEDO MD Mar 31, 2016 18:37
[2016-03-31] MEDS ORDERED: SCOPOLAMINE 1.5 MG (TRANSDERM-SCOP) PATCH TOP SCH (18:45)
[2016-03-31] MEDS ORDERED: NON-FORMULARY MEDICATION 1 EA EA (Ibuprofen 600 MG) PO PRN (18:45)
[2016-03-31] MEDS ORDERED: POLYETHYLENE GLYCOL 17 GM (MIRALAX) PACK PO PRN (18:45)
[2016-03-31] MEDS: RT-ADVAIR HFA 115/21 MCG PER PUFF IH SCH (20:05)
[2016-03-31] MEDS: ATORVASTATIN 40 MG (LIPITOR) TABLET PO SCH (20:38)
[2016-03-31] MEDS: DICLOFENAC 1% GEL 100 GM (VOLTAREN) TUBE TP SCH (20:38)
[2016-03-31] MEDS: PROMETHAZINE 25 MG (PHENERGAN) TAB PO PRN (20:38)
[2016-03-31] MEDS: LACTOBACILLUS Acidoph/Bulgar (LACTINEX/FLORANEX) TAB PO SCH (20:38)
[2016-03-31] MEDS: IBUPROFEN 600 MG (MOTRIN) TAB PO PRN (20:38)
[2016-03-31] MEDS: SENNA W/DOCUSATE (SENOKOT S) TABLET PO SCH (20:39)
[2016-03-31] MEDS: ENOXAPARIN 40 MG/0.4 ML (LOVENOX) SYR SC SCH (20:39)
[2016-03-31] MEDS: PIPERACILLIN SODIUM/TAZOBACTAM 4.5 GM in NORMAL SALINE (BAXTER MINI) 100 ML IV SCH (20:40)
[2016-04-01] VITALS (15 sets, daily range): BP systolic 97–154; BP diastolic 64–81
[2016-04-01] MEDS: VANCOMYCIN 1 GM/NS 250 ML IVPB IV SCH ×4 (01:13→15:49)
[2016-04-01] MEDS: ONDANSETRON 4 MG/2 ML (SDV) Z0FRAN IVP PRN (01:13)
[2016-04-01] MEDS: HYDROCORTISONE 100 MG/2 ML (Solu-CORTEF) VIAL IV SCH ×4 (01:13→20:34)
[2016-04-01] MEDS: NS IV 1000 ML 1,000 ML IV SCH ×4 (02:18→20:59)
[2016-04-01] MEDS: NOREPINEPHRINE FOR DRIPS 4 MG in D5W 250 ML (IVPB) 250 ML IV SCH ×2 (02:49→08:45)
[2016-04-01] MEDS: PIPERACILLIN SODIUM/TAZOBACTAM 4.5 GM in NORMAL SALINE (BAXTER MINI) 100 ML IV SCH ×3 (04:23→20:33)
[2016-04-01 04:56] LABS: BASOPHILS % (AUTO) 0 % (0-10); EOSINOPHILS % (AUTO) 0 % (0-10); LYMPHOCYTES # (AUTO) 1.5 X 10^3 (1.0-4.0); LYMPHOCYTES % (AUTO) 9 % (12-44); MEAN CORPUSCULAR HEMOGLOBIN 31 PG (25-34); MEAN CORPUSCULAR HGB CONC 32 G/DL (32-36); MEAN CORPUSCULAR VOLUME 96 FL (80-99); MEAN PLATELET VOLUME 9.7 FL (7.4-10.4); MONOCYTES # (AUTO) 0.7 X 10^3 (0.0-1.0); MONOCYTES % (AUTO) 4 % (0-12); NEUTROPHILS # (AUTO) 14.7 X 10^3 (1.8-7.8); NEUTROPHILS % (AUTO) 87 % (42-75); PLATELET COUNT 130 10^3/uL (130-400); RED BLOOD COUNT 2.43 10^6/uL (4.35-5.85); RED CELL DISTRIBUTION WIDTH 15.9 % (10.0-14.5); WHITE BLOOD COUNT 16.9 10^3/uL (4.3-11.0)
[2016-04-01 05:20] LABS: ALANINE AMINOTRANSFERASE 112 U/L (0-55); ANION GAP 10 MMOL/L (5-14); ASPARTATE AMINO TRANSFERASE 57 U/L (5-34); BILIRUBIN,TOTAL 0.3 MG/DL (0.1-1.0); BLOOD UREA NITROGEN 21 MG/DL (7-18); BUN/CREATININE RATIO 32; CALCIUM 8.8 MG/DL (8.5-10.1); CARBON DIOXIDE 21 MMOL/L (21-32); CHLORIDE 109 MMOL/L (98-107); CREATININE SERUM 0.65 MG/DL (0.60-1.30); GFR ESTIMATED > 60; GLUCOSE 117 MG/DL (70-105); MAGNESIUM 1.7 MG/DL (1.8-2.4); PHOSPHORUS 3.8 MG/DL (2.3-4.7); POTASSIUM 3.8 MMOL/L (3.6-5.0); SODIUM 140 MMOL/L (135-145)
[2016-04-01] MEDS: inSUlin (REGULAR) HUMAN 1 UNIT/0.01 ML (CHARGE PER UNIT) SC SCH (06:00)
[2016-04-01] MEDS ORDERED: MAGNESIUM 1 GM/100 ML IVPB 100 ML IV SCH (06:00)
[2016-04-01] MEDS ORDERED: KCL 20 MEQ TAB (K-DUR) PO SCH (06:00)
[2016-04-01] MEDS ORDERED: POTASSIUM CL 10MEQ/50ML IVPB 50 ML IV SCH (06:00)
[2016-04-01] MEDS: VASOPRESSIN INJECTION 20 UNIT in NS (IVPB) 100 ML IV SCH (06:02)
[2016-04-01] MEDS: PANTOPRAZOLE 20 MG TABLET (PROTONIX) PO SCH (06:31)
[2016-04-01] MEDS: LACTOBACILLUS Acidoph/Bulgar (LACTINEX/FLORANEX) TAB PO SCH ×3 (06:31→15:57)
[2016-04-01] MEDS: MAGNESIUM 1 GM/100 ML IVPB 100 ML IV SCH ×2 (06:33→07:32)
[2016-04-01] MEDS: RT-ADVAIR HFA 115/21 MCG PER PUFF IH SCH ×2 (07:09→20:26)
[2016-04-01] MEDS: HYDROcodone/APAP 7.5 MG/325 MG (LORTAB, LORCET PLUS) TABLET PO PRN ×3 (07:35→17:51)
[2016-04-01] MEDS: ALPRAZolam 0.5 MG (XANAX) TAB PO PRN ×2 (07:35→17:53)
--- NOTE | 2016-04-01 07:43 | Pulmonary Consultation ---
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 Pt is s/p 1 chemo treatment and her next is scheduled for 04/05. Pt as admitted from cancer center secondary to fever, SOB and was found to have hypotension. PT with RN and family present states she wants to be a DNR. She would like to go home if at all possible. She wants to know if she can do home Abx. I am consulted for pulmonary management. Allergies and Home Medications Allergies Coded Allergies: [place] Known Allergies (Verified Allergy, Unknown, 03/12/16) Home Medications Acetaminophen 650 Mg Tablet.er 2 TAB PO Q8H PRN PRN PAIN (Reported) Alprazolam 0.5 Mg Tablet 0.5 MG PO Q4H PRN PRN ANXIETY (Reported) Ascorbate Calcium 500 Mg Tablet 500 MG PO DAILY (Reported) Atorvastatin Calcium 40 Mg Tablet 40 MG PO HS (Reported) Citalopram Hydrobromide 20 Mg Tablet 20 MG PO HS (Reported) Diclofenac Sodium 100 Gm Gel..gram. 2 GM TP QID (Reported) Fluticasone/Salmeterol 12 Gm Hfa.aer.ad 2 PUFF IH 0700,1900 (Reported) Hydrocodone/Acetaminophen 1 Each Tablet 1-2 TAB PO Q6H PRN PRN PAIN (Reported) Ibuprofen 200 Mg Capsule 600 MG PO Q8H PRN PRN PAIN (Reported) TAKES 3 (200 MG) TABLETS Ipratropium/Albuterol Sulfate 3 Ml Ampul.neb 3 ML NEB 0700,1100,1500,1900 ( Reported) Metoprolol Succinate 25 Mg Tab.er.24h 25 MG PO BID (Reported) Morphine Sulfate 100 Mg/5 Ml Solution 10-20 MG PO Q2H PRN PRN PAIN (Reported) Omeprazole 20 Mg Capsule.dr 20 MG PO DAILY (Reported) Ondansetron HCl 8 Mg Tablet 8 MG PO TID (Reported) Polyethylene Glycol 3350 17 Gm Powd.pack 17 GM PO HS PRN PRN CONSTIPATION ( Reported) Promethazine HCl 25 Mg Tablet 25 MG PO Q6H PRN PRN NAUSEA/VOMITING (Reported) Promethazine HCl/Codeine 118 Ml Syrup 5-10 ML PO Q6H PRN PRN COUGH (Reported) Scopolamine 1 Each Patch.td72 1 PATCH TD Q72H (Reported) Sennosides/Docusate Sodium 1 Each Tablet 1 TAB PO BID (Reported) Past Rwihiso-Ruufkp-Cpyfmq Hx Patient Social History Alcohol Use: Denies Use Recreational Drug Use: No Smoking Status: Former Smoker Type Used: Cigarettes 2nd Hand Smoke Exposure: Yes Recent Foreign Travel: No Contact w/Someone Who Travel: No Recent Infectious Disease Expo: No Recent Hopitalizations: No Physical Abuse Screen: No Sexual Abuse: No Immunizations Up To Date Tetanus Booster (TDap): Unknown Date of Influenza Vaccine: Dec 29, 2015 Seasonal Allergies Seasonal Allergies: No Surgeries HX Surgeries: Yes (RIGHT EYE REMOVED DUE TO CA, FOOT-BUIONECTOMY, HIATAL HERNIA ) Surgeries: Abdominal, Eye Surgery, Hysterectomy Respiratory Hx Respiratory Disorders: Yes (LUNG CANCER) Respiratory Disorders: Pneumonia Cardiovascular Hx Cardiac Disorders: Yes (TACHYCARDIA) Cardiac Disorders: Hypertension, Palpitations Neurological Hx Neurological Disorders: Yes (CVA 2004) Neurological Disorders: Stroke Reproductive System : No Hx Reproductive Disorders: No Sexually Transmitted Disease: No HIV/AIDS: No Female Reproductive Disorders: Endometriosis [employer] History: Hysterectomy Genitourinary Hx Genitourinary Disorders: No Gastrointestinal Hx Gastrointestinal Disorders: Yes (SURGICALLY REPAIRED) Gastrointestinal Disorders: Gastroesophageal Reflux, Hiatal Hernia Musculoskeletal Hx Musculoskeletal Disorders: Yes Musculoskeletal Disorders: Arthritis Endocrine Hx Endocrine Disorders: No HEENT HX ENT Disorders: Yes (ARTIFICIAL RIGHT EYE) HEENT Disorders: Cataract 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, SMALL CELL EXTENSIVE CA STAGE 4) Cancer: Lung Psychosocial Hx Psychiatric Problems: Yes Behavioral Health Disorders: Anxiety, Depression Integumentary HX Skin/Integumentary Disorder: No Blood Transfusions Hx Blood Disorders: No Adverse Reaction to a Blood Tr: No Reviewed Nursing Assessment Reviewed/Agree w Nursing PMH: Yes Family Medical History Significant Family History: Heart Disease, Cancer Exam Exam Vital Signs Date Time Temp Pulse Resp B/P Pulse Ox O2 Delivery O2 Flow Rate FiO2 04/01/16 07:10 95 Nasal Cannula 5.00 04/01/16 06:00 106 23 95 Nasal Cannula 5.00 04/01/16 05:00 105 16 92 Nasal Cannula 5.00 04/01/16 04:00 93 Nasal Cannula 5.00 04/01/16 04:00 99.1 111 11 97/74 94 Nasal Cannula 5.00 04/01/16 03:00 112 22 111/71 93 Nasal Cannula 5.00 04/01/16 02:00 115 18 101/65 94 Nasal Cannula 5.00 04/01/16 01:00 117 04/01/16 01:00 117 29 107/64 96 Nasal Cannula 5.00 04/01/16 00:00 100.7 121 17 109/65 92 Nasal Cannula 5.00 04/01/16 00:00 93 Nasal Cannula 5.00 03/31/16 23:00 118 17 123/73 94 Nasal Cannula 5.00 03/31/16 22:00 116 17 119/70 93 Nasal Cannula 5.00 03/31/16 21:00 116 19 122/66 94 Nasal Cannula 5.00 03/31/16 20:05 95 Nasal Cannula 5.00 03/31/16 20:00 99.6 112 21 103/65 96 Nasal Cannula 5.00 03/31/16 20:00 92 Nasal Cannula 5.00 03/31/16 19:00 105 23 107/64 96 Nasal Cannula 5.00 03/31/16 19:00 105 03/31/16 18:00 99 17 97/64 03/31/16 17:45 103 34 101/70 94 Nasal Cannula 5.00 03/31/16 16:45 98 16 99/61 94 Nasal Cannula 5.00 03/31/16 16:27 Nasal Cannula 5.00 03/31/16 16:17 98.1 95 Nasal Cannula 5.00 03/31/16 16:16 96 Nasal Cannula 5.00 03/31/16 15:45 98 13 89/56 95 Nasal Cannula 5.00 03/31/16 14:45 96 13 94/74 96 Nasal Cannula 5.00 03/31/16 14:35 Nasal Cannula 5.00 03/31/16 14:00 96 03/31/16 13:45 72/53 03/31/16 12:58 99.0 99 18 96 Nasal Cannula 3 03/31/16 12:00 99.0 03/31/16 10:56 100.1 03/31/16 10:10 101.4 109 18 93/65 95 03/31/16 10:10 Nasal Cannula 3 I & O 04/01/16 07:00 Intake Total 4170 ml Output Total 1200 ml Balance 2970 ml General Appearance: No Apparent Distress WD/WN HEENT: Pharynx Normal Neck: Full Range of Motion Supple Respiratory: Chest Non Tender Decreased Breath Sounds (ON LEFT - NO BREATH SOUNDS, ON RIGHT CLEAR TO AUSCULTATION) Cardiovascular: Regular Rate, Rhythm No Edema Capillary Refill: Less Than 3 Seconds Extremity: Normal Capillary Refill No Calf Tenderness No Pedal Edema Neurologic/Psychiatric: Alert Oriented x3 No Motor/Sensory Deficits Normal Mood/Affect director service II-XII Norm as Tested Skin: Normal Color Warm/Dry Lymphatic: No Adenopathy Results Lab Laboratory Tests 03/31/16 10:15 03/31/16 16:50 04/01/16 04:32 Assessment/Plan Assessment/Plan Sepsis - imporving -lucas cultures pending Endobronchial mass causing atelectasis and opacification of left lung -Check CT of lung Anemia -transfuse 1 unit PRBC -Monitor Post obstructive pneumonia Small cell lung cancer with mets Dyspnea - monitor Clinical Quality Measures DVT/VTE Risk/Contraindication: Risk Factor Score Per Nursin RFS Level Per Nursing on Admit: 4+=Very High BOBO SAMUELS DO Apr 01, 2016 07:43 RFS Level Per Nursing on Admit: 4+=Very High BOBO SAMUELS DO Apr 01, 2016 07:43
[2016-04-01] MEDS ORDERED: NS IV 500 ML 500 ML IV SCH (07:46)
--- NOTE | 2016-04-01 07:51 | Progress Note (SOAP) ---
Subjective Subjective/Events-last exam PT REPORTS THAT SHE IS FEELING BETTER TODAY - SHE STATES THAT HER BREATHING IS BETTER, STILL LABORED, BUT NOT HARD PREVIOUSLY. Review of Systems General: Fatigue Malaise HEENT: No Head Aches Pulmonary: Dyspnea Cough Cardiovascular: No: Chest Pain Gastrointestinal: : NauseaNo: Abdominal Pain Neurological: : WeaknessNo: Confusion Objective Exam Vital Signs Date Time Temp Pulse Resp B/P Pulse Ox O2 Delivery O2 Flow Rate FiO2 04/01/16 07:10 95 Nasal Cannula 5.00 04/01/16 06:00 106 23 95 Nasal Cannula 5.00 04/01/16 05:00 105 16 92 Nasal Cannula 5.00 04/01/16 04:00 93 Nasal Cannula 5.00 04/01/16 04:00 99.1 111 11 97/74 94 Nasal Cannula 5.00 04/01/16 03:00 112 22 111/71 93 Nasal Cannula 5.00 04/01/16 02:00 115 18 101/65 94 Nasal Cannula 5.00 04/01/16 01:00 117 04/01/16 01:00 117 29 107/64 96 Nasal Cannula 5.00 04/01/16 00:00 100.7 121 17 109/65 92 Nasal Cannula 5.00 04/01/16 00:00 93 Nasal Cannula 5.00 03/31/16 23:00 118 17 123/73 94 Nasal Cannula 5.00 03/31/16 22:00 116 17 119/70 93 Nasal Cannula 5.00 03/31/16 21:00 116 19 122/66 94 Nasal Cannula 5.00 03/31/16 20:05 95 Nasal Cannula 5.00 03/31/16 20:00 99.6 112 21 103/65 96 Nasal Cannula 5.00 03/31/16 20:00 92 Nasal Cannula 5.00 03/31/16 19:00 105 23 107/64 96 Nasal Cannula 5.00 03/31/16 19:00 105 03/31/16 18:00 99 17 97/64 03/31/16 17:45 103 34 101/70 94 Nasal Cannula 5.00 03/31/16 16:45 98 16 99/61 94 Nasal Cannula 5.00 03/31/16 16:27 Nasal Cannula 5.00 03/31/16 16:17 98.1 95 Nasal Cannula 5.00 03/31/16 16:16 96 Nasal Cannula 5.00 03/31/16 15:45 98 13 89/56 95 Nasal Cannula 5.00 03/31/16 14:45 96 13 94/74 96 Nasal Cannula 5.00 03/31/16 14:35 Nasal Cannula 5.00 03/31/16 14:00 96 03/31/16 13:45 72/53 03/31/16 12:58 99.0 99 18 96 Nasal Cannula 3 03/31/16 12:00 99.0 03/31/16 10:56 100.1 03/31/16 10:10 101.4 109 18 93/65 95 03/31/16 10:10 Nasal Cannula 3 I & O 04/01/16 07:00 Intake Total 4320 ml Output Total 1500 ml Balance 2820 ml Capillary Refill : Less Than 3 Seconds General Appearance: No Apparent Distress WD/WN HEENT: PERRL/EOMI Pharynx Normal Neck: Full Range of Motion Supple Respiratory: Chest Non Tender Decreased Breath Sounds (ON LEFT , CLEAR ON RIGHT) Cardiovascular: Regular Rate, Rhythm Gastrointestinal: normal bowel sounds non tender soft no organomegaly no pulsatile mass Extremity: Normal Capillary Refill No Calf Tenderness No Pedal Edema Neurologic/Psychiatric: Alert Oriented x3 No Motor/Sensory Deficits Normal Mood/Affect Skin: Warm/Dry Lymphatic: No Adenopathy Results Lab Laboratory Tests 03/31/16 10:15: Activated Partial Thromboplast Time 24, Alanine Aminotransferase (ALT/SGPT) 167H , Albumin 3.5, Alkaline Phosphatase 120, Anion Gap 11, Anisocytosis SLIGHT, Aspartate Amino Transf (AST/SGOT) 96H, BUN/Creatinine Ratio 28, Band Neutrophils 11, Basophils # (Auto) 0.1, Basophils % (Manual) 0, Basophils (%) ( Auto) 1, Blood Urea Nitrogen 23H, Calcium Level 9.8, Carbon Dioxide Level 27, Chloride Level 96L, Creatinine 0.83, Eosinophils # (Auto) 0.0, Eosinophils % ( Manual) 0, Eosinophils (%) (Auto) 0, Estimat Glomerular Filtration Rate > 60, Glucose Level 103, Hematocrit 29L, Hemoglobin 9.4L, INR Comment 0.9, Lactic Acid Level 1.8, Lymphocytes # (Auto) 2.2, Lymphocytes % (Manual) 8, Lymphocytes (%) (Auto) 9L, Mean Corpuscular Hemoglobin 30, Mean Corpuscular Hemoglobin Concent 32, Mean Corpuscular Volume 95, Mean Platelet Volume 10.1, Monocytes # ( Auto) 1.3H, Monocytes % (Manual) 2, Monocytes (%) (Auto) 5, Neutrophils # (Auto ) 21.2H, Neutrophils % (Manual) 79, Neutrophils (%) (Auto) 85H, Platelet Count 153, Polychromasia SLIGHT, Potassium Level 4.2, Prothrombin Time 12.3, Red Blood Count 3.11L, Red Cell Distribution Width 15.6H, Sodium Level 134L, Total Bilirubin 0.5, Total Protein 5.8L, White Blood Count 24.8H 03/31/16 10:30: Urine Bacteria NEGATIVE, Urine Bilirubin NEGATIVE, Urine Casts NONE, Urine Clarity CLEAR, Urine Color YELLOW, Urine Crystals NONE, Urine Culture Indicated NO, Urine Glucose (UA) NEGATIVE, Urine Ketones NEGATIVE, Urine Leukocyte Esterase NEGATIVE, Urine Mucus NEGATIVE, Urine Nitrite NEGATIVE, Urine Protein NEGATIVE, Urine RBC NONE, Urine RBC (Auto) NEGATIVE, Urine Specific [place] 1.015L, Urine Urobilinogen NORMAL, Urine WBC NONE, Urine White Blood Cell Casts , Urine pH 6.5 03/31/16 16:44: Glucometer 150H 03/31/16 16:50: Alanine Aminotransferase (ALT/SGPT) 126H, Albumin 2.9L, Alkaline Phosphatase 93 , Anion Gap 10, Aspartate Amino Transf (AST/SGOT) 68H, BUN/Creatinine Ratio 24, Blood Urea Nitrogen 21H, Calcium Level 8.6, Carbon Dioxide Level 23, Chloride Level 105, Creatinine 0.89, Estimat Glomerular Filtration Rate > 60, Glucose Level 134H, Hematocrit 24L, Hemoglobin 7.6L, Lactic Acid Level 1.5, Mean Corpuscular Hemoglobin 30, Mean Corpuscular Hemoglobin Concent 31L, Mean Corpuscular Volume 96, Mean Platelet Volume 9.4, Platelet Count 126L, Potassium Level 4.2, Red Blood Count 2.53L, Red Cell Distribution Width 15.6H, Sodium Level 138, Total Bilirubin 0.3, Total Protein 4.8L, White Blood Count 18.5H 04/01/16 04:32: Alanine Aminotransferase (ALT/SGPT) 112H, Albumin 3.0L, Alkaline Phosphatase 87 , Anion Gap 10, Aspartate Amino Transf (AST/SGOT) 57H, BUN/Creatinine Ratio 32, Basophils # (Auto) 0.0, Basophils (%) (Auto) 0, Blood Urea Nitrogen 21H, Calcium Level 8.8, Carbon Dioxide Level 21, Chloride Level 109H, Creatinine 0.65 , Eosinophils # (Auto) 0.0, Eosinophils (%) (Auto) 0, Estimat Glomerular Filtration Rate > 60, Glucose Level 117H, Hematocrit 23L, Hemoglobin 7.4L, Lymphocytes # (Auto) 1.5, Lymphocytes (%) (Auto) 9L, Magnesium Level 1.7L, Mean Corpuscular Hemoglobin 31, Mean Corpuscular Hemoglobin Concent 32, Mean Corpuscular Volume 96, Mean Platelet Volume 9.7, Monocytes # (Auto) 0.7, Monocytes (%) (Auto) 4, Neutrophils # (Auto) 14.7H, Neutrophils (%) (Auto) 87H, Phosphorus Level 3.8, Platelet Count 130, Potassium Level 3.8, Red Blood Count 2.43L, Red Cell Distribution Width 15.9H, Sodium Level 140, Total Bilirubin 0.3 , Total Protein 5.0L, White Blood Count 16.9H Assessment/Plan Assessment/Plan Assess & Plan/Chief Complaint SEPSIS LEUKOCYTOSIS HYDROPNEUMOTHORAX POST-OBSTRUCTIVE PNEUMONIA SMALL CELL LUNG CANCER DYSPNEA HYPOTENSION TACHYCARDIA CHEST PAIN CHRONIC NAUSEA SEPSIS WITH HYPOTENSION - PT ON FLUID REPLACEMENT PROTOCOL, CONTINUE WITH IV FLUIDS, TRIPLE ANTIBIOTIC THERAPY - ZOSYN, LEVAQUIN, VANCOMYCIN AND PRESSORS IF NEEDED. HYDROPNEUMOTHORAX -WITH PNEUMONIA - CONTINUE WITH TREATMENT OF POST- OBSTRUCTIVE PNEUMONIA. PT RECENTLY OFF OF STEROIDS - PT GIVEN STRESS DOSE OF STEROIDS TODAY. CONSULT PLACED TO DR. SAMUELS WHO WILL SEE PT TOMORROW. SMALL CELL LUNG CANCER - PT NOT DUE TO REPEAT CHEMOTHERAPY UNTIL 04/05/16, WILL CONSULT ONCOLOGY TOMORROW IF NEEDED. COUGH - CONTINUE WITH CURRENT COUGH MEDICATIONS POST-OBSTRUCTIVE PNEUMONIA -STARTED ON ANTIBIOTICS COPD DUE TO PERSISTENT TOBACCOISM - MONITOR SYMPTOMS UNCONTROLLED PAIN - RESTART HYDROCODONE. CHRONIC NAUSEA - RESTART ZOFRAN, SCOPOLAMINE PATCH, PROMETHAZINE ANEMIA - HGB 7.4, WILL TRANSFUSE THIS MORNING ONE UNIT OF BLOOD, REPEAT LABS IN MORNING. MILDLY ELEVATED LIVER ENZYMES - DUE TO HYPOTENSION - IMPROVING. Diagnosis/Problems: Clinical Quality Measures DVT/VTE Risk/Contraindication: Risk Factor Score Per Nursin RFS Level Per Nursing on Admit: 4+=Very High TYSON TALAMANTES MD Apr 01, 2016 07:51
[2016-04-01] MEDS ORDERED: diphenhydrAMINE 50 MG/ML INJ (BENADRYL) IVP SCH (08:00)
[2016-04-01] MEDS ORDERED: ACETAMINOPHEN 325 MG TABLET/CAPLET (TYLENOL) PO SCH (08:00)
[2016-04-01] MEDS ORDERED: NS 100 ML (IVPB) BAG IV ONE (08:15)
[2016-04-01] MEDS ORDERED: IOHEXOL 350 MG/ML 100 ML (OMNIPAQUE 350) VIAL IV ONE (08:15)
[2016-04-01] MEDS: SENNA W/DOCUSATE (SENOKOT S) TABLET PO SCH ×2 (08:44→20:34)
[2016-04-01] MEDS: DICLOFENAC 1% GEL 100 GM (VOLTAREN) TUBE TP SCH ×4 (08:44→20:35)
[2016-04-01] MEDS ORDERED: OMEPRAZOLE 20 MG (PriLOSEC) CAP NON-FORMULARY PO SCH (09:00)
--- NOTE | 2016-04-01 10:09 | Diagnostic Imaging Report ---
INDICATION: None given. TECHNIQUE: Single view chest at 4:44 a.m. CORRELATION STUDY: 03/31/2016. FINDINGS: There is now complete opacification of the left hemithorax likely owing to large pleural effusion with consolidated collapsed left lung. There is slight shift in the mediastinal structures towards the right hemithorax. Right lung field demonstrates slight increased interstitial markings. The heart size and mediastinum are largely obscured by the findings of the left chest. Likely small right pleural effusion. Left-sided Ynbozm-h-Guwr catheter appearing generally stable. Tip is in the indeterminate position within the azygos vein versus SVC. IMPRESSION: 1. Now complete opacification of the left hemithorax likely owing to large pleural effusion and collapsed consolidated left lung. 2. Evolving pulmonary interstitial markings in the right lung could be reflective of pulmonary edema versus developing interstitial infiltrates. Small right pleural effusion also now present. Dictated by: Dictated on workstation # [id number]
[2016-04-01] MEDS: IBUPROFEN 600 MG (MOTRIN) TAB PO PRN ×2 (10:50→20:34)
[2016-04-01] MEDS: LEVOFLOXACIN 750 MG/150 ML IV 150 ML IV SCH (11:02)
--- NOTE | 2016-04-01 11:31 | Diagnostic Imaging Report ---
PROCEDURE: CT chest with contrast only. TECHNIQUE: Multiple contiguous axial images were obtained through the chest after administration of intravenous contrast. INDICATION: Dyspnea. Small cell lung cancer. 75 mL of Omnipaque 350 is administered intravenously. COMPARISON: 03/12/2016 exam. FINDINGS: Again seen are large masses in the mediastinum up to 6 x 3 cm anterior to the stephane and extending craniocaudally about 7 cm. Large prevascular, right paratracheal, upper thoracic, right paraesophageal and large aortopulmonary window lymph node mass are also seen. The latter is 4.8 x 2.6 cm in size. Infracarinal mass is at least 5 x 5.4 cm, difficult to separate from the adjacent hilum on the right side. There is heterogenous enhancement in the central aspect of the lung and lower lobe difficult to differentiate from pulmonary atelectasis and consolidation with components of mass suspected. There is now complete atelectasis in the left upper lobe with increased moderate to large left pleural effusion. There is slight deviation of the trachea and mediastinal structures to the right side. The right lung is generally clear. Sections in the upper abdomen demonstrate a left hepatic lobe mass measuring 3.8 cm enlarged from 2.8 cm on the previous exam. The osseous structures demonstrate a lateral left ninth rib subacute fracture with callus formation with no definite underlying destructive mass. IMPRESSION: 1. Again seen large masses in the mediastinum and left hilum inseparable from the central aspect of the left lung with complete atelectasis and consolidation. There is particularly heterogenous density in the central aspect of the left lower lobe likely related to tumor infiltration. The bronchial tree in the left lung is obliterated from the lobar level. There is a moderate to large left pleural effusion. Overall no definite change in the masses seen in the chest. 2. Enlarged left hepatic lobe mass, now measuring up to 3.8 cm. Dictated by: Dictated on workstation # [id number]
[2016-04-01] MEDS ORDERED: TROUGH ORDER-PHARMACY XX NR (13:00)
--- NOTE | 2016-04-01 14:39 | Consultation ---
History of Present Illness History of Present Illness Patient Consulted On(lula/time) 04/01/16 14:34 Date of Admission 03/31/16 History of Present Illness This is a 60-year-old lady who was seen by me in consultation last month when she was found to have extensive disease small cell lung cancer. She is currently admitted with fever hypoxia shortness of breath and hypotension and was started on triple antibiotics as management for sepsis. Clinically she has improved with decrease in fever as well as improvement in her oxygenation and blood pressure status. She continues to report some dyspnea however. She states she had been doing well until one day prior to admission. Allergies and Home Medications Allergies Coded Allergies: NKANo Known Allergies (Verified Allergy, Unknown, 03/12/16) Home Medications Acetaminophen 650 Mg Tablet.er 2 TAB PO Q8H PRN PRN PAIN (Reported) Alprazolam 0.5 Mg Tablet 0.5 MG PO Q4H PRN PRN ANXIETY (Reported) Ascorbate Calcium 500 Mg Tablet 500 MG PO DAILY (Reported) Atorvastatin Calcium 40 Mg Tablet 40 MG PO HS (Reported) Citalopram Hydrobromide 20 Mg Tablet 20 MG PO HS (Reported) Diclofenac Sodium 100 Gm Gel..gram. 2 GM TP QID (Reported) Fluticasone/Salmeterol 12 Gm Hfa.aer.ad 2 PUFF IH 0700,1900 (Reported) Hydrocodone/Acetaminophen 1 Each Tablet 1-2 TAB PO Q6H PRN PRN PAIN (Reported) Ibuprofen 200 Mg Capsule 600 MG PO Q8H PRN PRN PAIN (Reported) TAKES 3 (200 MG) TABLETS Ipratropium/Albuterol Sulfate 3 Ml Ampul.neb 3 ML NEB 0700,1100,1500,1900 ( Reported) Metoprolol Succinate 25 Mg Tab.er.24h 25 MG PO BID (Reported) Morphine Sulfate 100 Mg/5 Ml Solution 10-20 MG PO Q2H PRN PRN PAIN (Reported) Omeprazole 20 Mg Capsule.dr 20 MG PO DAILY (Reported) Ondansetron HCl 8 Mg Tablet 8 MG PO TID (Reported) Polyethylene Glycol 3350 17 Gm Powd.pack 17 GM PO HS PRN PRN CONSTIPATION ( Reported) Promethazine HCl 25 Mg Tablet 25 MG PO Q6H PRN PRN NAUSEA/VOMITING (Reported) Promethazine HCl/Codeine 118 Ml Syrup 5-10 ML PO Q6H PRN PRN COUGH (Reported) Scopolamine 1 Each Patch.td72 1 PATCH TD Q72H (Reported) Sennosides/Docusate Sodium 1 Each Tablet 1 TAB PO BID (Reported) Past Enugnfw-Dzcrxc-Xpdezn Hx Patient Social History Alcohol Use: Denies Use Recreational Drug Use: No Smoking Status: Former Smoker Type Used: Cigarettes 2nd Hand Smoke Exposure: Yes Recent Foreign Travel: No Contact w/Someone Who Travel: No Recent Infectious Disease Expo: No Recent Hopitalizations: No Physical Abuse Screen: No Sexual Abuse: No Immunizations Up To Date Tetanus Booster (TDap): Unknown Date of Influenza Vaccine: Dec 29, 2015 Seasonal Allergies Seasonal Allergies: No Surgeries HX Surgeries: Yes (RIGHT EYE REMOVED DUE TO CA, FOOT-BUIONECTOMY, HIATAL HERNIA ) Surgeries: Abdominal, Eye Surgery, Hysterectomy Respiratory Hx Respiratory Disorders: Yes (LUNG CANCER) Respiratory Disorders: Pneumonia Cardiovascular Hx Cardiac Disorders: Yes (TACHYCARDIA) Cardiac Disorders: Hypertension, Palpitations Neurological Hx Neurological Disorders: Yes (CVA 2004) Neurological Disorders: Stroke Reproductive System : No Hx Reproductive Disorders: No Sexually Transmitted Disease: No HIV/AIDS: No Female Reproductive Disorders: Endometriosis MANAGER OF IT History: Hysterectomy Genitourinary Hx Genitourinary Disorders: No Gastrointestinal Hx Gastrointestinal Disorders: Yes (SURGICALLY REPAIRED) Gastrointestinal Disorders: Gastroesophageal Reflux, Hiatal Hernia Musculoskeletal Hx Musculoskeletal Disorders: Yes Musculoskeletal Disorders: Arthritis Endocrine Hx Endocrine Disorders: No HEENT HX ENT Disorders: Yes (ARTIFICIAL RIGHT EYE) HEENT Disorders: Cataract 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, SMALL CELL EXTENSIVE CA STAGE 4) Cancer: Lung Psychosocial Hx Psychiatric Problems: Yes Behavioral Health Disorders: Anxiety, Depression Integumentary HX Skin/Integumentary Disorder: No Blood Transfusions Hx Blood Disorders: No Adverse Reaction to a Blood Tr: No Reviewed Nursing Assessment Reviewed/Agree w Nursing PMH: Yes Family Medical History Significant Family History: Heart Disease, Cancer Review of Systems-General Constitutional: malaise Respiratory: cough dyspnea on exertion short of breath Musculoskeletal: back pain joint pain Physical Exam-General Problems Physical Exam Vital Signs Vital Sign - Last 12Hours 03/31/16 10:10 Temp 101.4 Pulse 109 Resp 18 B/P 93/65 Pulse Ox 95 O2 Delivery Nasal Cannula O2 Flow Rate 3 Capillary Refill : Less Than 3 Seconds General Appearance: WD/WN no apparent distress HEENT: PERRL/EOMI Neck: non-tender full range of motion supple Respiratory: decreased breath sounds (decreased breath sounds left base; no wheezes) Cardiovascular: no edema no gallop no JVD tachycardia Gastrointestinal: normal bowel sounds non tender soft no organomegaly no pulsatile mass Rectal: deferred Back: normal inspection Extremities: non-tender normal inspection no pedal edema no calf tenderness Neurologic/Psychiatric: 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 Again seen large masses in the mediastinum and left hilum inseparable from the central aspect of the left lung with complete atelectasis and consolidation. There is particularly heterogenous density in the central aspect of the left lower lobe likely related to tumor infiltration. The bronchial tree in the left lung is obliterated from the lobar level. There is a moderate to large left pleural effusion. Overall no definite change in the masses seen in the chest. 2. Enlarged left hepatic lobe mass, now measuring up to 3.8 cm. Assessment/Plan Assessment/Plan Admission Diagnosis/Plan 1. 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 a. Status post one cycle of cisplatin and Etoposide administered on through . b. Patient is due for Cycle 2 on 04/05/16; c. If no shrinkage or masses noted with this cycle of chemotherapy then patient will be deemed refractory to first-line cisplatin and etoposide and regimen will be changed to Topotecan; 2. Large left malignant pleural effusion--may need therapeutic/diagnostic for bacterial culture thoracentesis under image guidance; 3. Fever/ Postobstructive pneumonia--on triple antibiotics: IV levofloxacin, Zosyn, and vancomycin. 4. Symptomatic anemia-3 transfuse 2 units packed RBCs with Lasix to be given prior to second unit 5. [place] is poor because of patient's extensive disease , above pnemonia, poor reserves. Clinical Quality Measures DVT/VTE Risk/Contraindication: Risk Factor Score Per Nursin RFS Level Per Nursing on Admit: 4+=Very High DANIA CAT MD Apr 01, 2016 14:39
[2016-04-01] MEDS ORDERED: CATHETER FLUSH 10 ML SYR IV PRN (14:45)
[2016-04-01] MEDS ORDERED: fentaNYL INJECTION 100 MCG/2 ML AMP ONE (18:18)
[2016-04-01] MEDS: fentaNYL INJECTION 100 MCG/2 ML AMP IVP PRN ×2 (18:30→20:42)
[2016-04-01] MEDS: ENOXAPARIN 40 MG/0.4 ML (LOVENOX) SYR SC SCH (18:31)
[2016-04-01] MEDS ORDERED: diphenhydrAMINE 50 MG/ML INJ (BENADRYL) IM NR (19:30)
[2016-04-01] MEDS ORDERED: FUROSEMIDE 40 MG/4 ML INJ (LASIX) IVP NR (19:30)
[2016-04-01] MEDS: RT-ALBUTEROL SULF 2.5 MG/3 ML PRE-MIX VIAL INH SCH (20:26)
[2016-04-01] MEDS: ATORVASTATIN 40 MG (LIPITOR) TABLET PO SCH (20:34)
[2016-04-01] MEDS ORDERED: NS (IVPB) 250 ML ONE (21:29)
[2016-04-02] VITALS (8 sets, daily range): BP systolic 114–163; BP diastolic 53–98
[2016-04-02] MEDS: fentaNYL INJECTION 100 MCG/2 ML AMP IVP PRN ×4 (00:33→07:37)
[2016-04-02] MEDS: HYDROCORTISONE 100 MG/2 ML (Solu-CORTEF) VIAL IV SCH ×2 (01:46→06:42)
[2016-04-02] MEDS: VANCOMYCIN 1 GM/NS 250 ML IVPB IV SCH ×2 (01:47)
[2016-04-02] MEDS: ONDANSETRON 4 MG/2 ML (SDV) Z0FRAN IVP PRN ×4 (03:40→17:11)
[2016-04-02] MEDS: PIPERACILLIN SODIUM/TAZOBACTAM 4.5 GM in NORMAL SALINE (BAXTER MINI) 100 ML IV SCH (03:41)
[2016-04-02] MEDS: HYDROcodone/APAP 7.5 MG/325 MG (LORTAB, LORCET PLUS) TABLET PO PRN (04:26)
[2016-04-02] MEDS: LACTOBACILLUS Acidoph/Bulgar (LACTINEX/FLORANEX) TAB PO SCH ×3 (05:25→17:02)
[2016-04-02 05:38] LABS: BASOPHILS % (AUTO) 0 % (0-10); EOSINOPHILS % (AUTO) 0 % (0-10); LYMPHOCYTES # (AUTO) 1.1 X 10^3 (1.0-4.0); LYMPHOCYTES % (AUTO) 8 % (12-44); MEAN CORPUSCULAR HEMOGLOBIN 30 PG (25-34); MEAN CORPUSCULAR HGB CONC 32 G/DL (32-36); MEAN CORPUSCULAR VOLUME 93 FL (80-99); MEAN PLATELET VOLUME 9.6 FL (7.4-10.4); MONOCYTES # (AUTO) 0.6 X 10^3 (0.0-1.0); MONOCYTES % (AUTO) 4 % (0-12); NEUTROPHILS % (AUTO) 88 % (42-75); PLATELET COUNT 105 10^3/uL (130-400); RED BLOOD COUNT 3.06 10^6/uL (4.35-5.85); RED CELL DISTRIBUTION WIDTH 16.2 % (10.0-14.5); WHITE BLOOD COUNT 14.8 10^3/uL (4.3-11.0)
[2016-04-02 06:06] LABS: ANION GAP 11 MMOL/L (5-14); BLOOD UREA NITROGEN 19 MG/DL (7-18); BUN/CREATININE RATIO 28; CARBON DIOXIDE 22 MMOL/L (21-32); CHLORIDE 108 MMOL/L (98-107); CREATININE SERUM 0.69 MG/DL (0.60-1.30); GFR ESTIMATED > 60; GLUCOSE 98 MG/DL (70-105); MAGNESIUM 1.7 MG/DL (1.8-2.4); POTASSIUM 2.9 MMOL/L (3.6-5.0); SODIUM 141 MMOL/L (135-145)
[2016-04-02] MEDS: PANTOPRAZOLE 20 MG TABLET (PROTONIX) PO SCH (06:43)
[2016-04-02] MEDS: SENNA W/DOCUSATE (SENOKOT S) TABLET PO SCH ×2 (07:37→20:57)
[2016-04-02] MEDS: ALPRAZolam 0.5 MG (XANAX) TAB PO PRN (07:37)
[2016-04-02] MEDS: DICLOFENAC 1% GEL 100 GM (VOLTAREN) TUBE TP SCH ×5 (07:38→20:57)
[2016-04-02] MEDS: SCOPOLAMINE 1.5 MG (TRANSDERM-SCOP) PATCH TOP SCH (07:38)
[2016-04-02] MEDS: RT-ALBUTEROL SULF 2.5 MG/3 ML PRE-MIX VIAL INH SCH ×4 (08:01→20:16)
[2016-04-02] MEDS: RT-ADVAIR HFA 115/21 MCG PER PUFF IH SCH ×2 (08:09→19:11)
[2016-04-02] MEDS ORDERED: fentaNYL INJECTION 100 MCG/2 ML AMP IVP PRN ×2 (08:30→11:00)
[2016-04-02] MEDS: HYDROcodone/APAP 10 MG/325 MG (LORTAB) TAB PO PRN ×3 (08:35→20:57)
[2016-04-02] MEDS: PROMETHAZINE/ CODEINE SYRUP 5 ML UDC PO PRN (08:42)
[2016-04-02] MEDS: LIDOCAINE (LIDODERM) 5% PATCH TOP SCH (08:47)
[2016-04-02] MEDS: PROMETHAZINE 25 MG (PHENERGAN) TAB PO PRN (08:54)
[2016-04-02] MEDS: IBUPROFEN 600 MG (MOTRIN) TAB PO PRN (08:54)
--- NOTE | 2016-04-02 10:51 | Progress Note (SOAP) ---
Subjective Subjective/Events-last exam PT REPORTS UNCONTROLLED PAIN OVER NIGHT. APPARENTLY THE PATIENT HAD UNCONTROLLED PAIN - HER DAUGHTER REPORTS THAT SHE ASKED IF SHE NEEDED TO BRING UP HER MOM'S PAIN MEDICATION DUE TO HER UNCONTROLLED PAIN. THE PATIENT'S NURSE LAST NIGHT REPORTED THAT SHE WOULD CALL ME FOR MEDICATION ADJUSTMENT. THE PATIENT STATES THAT SHE SUFFERED ALL NIGHT FROM THE PAIN. I WAS NEVER CALLED BY THE NURSE FOR PAIN MEDICATION ADJUSTMENTS LAST NIGHT AFTER THE DAY-SHIFT NURSE LEFT AT 7PM. Review of Systems General: Fatigue Malaise Pulmonary: Dyspnea Cough Cardiovascular: : Chest Pain Gastrointestinal: : NauseaNo: Abdominal Pain, Constipation, Diarrhea Musculoskeletal: : back pain (ON LEFT AT BRUISED REGION OF BACK) Neurological: : WeaknessNo: Confusion Objective Exam Vital Signs Date Time Temp Pulse Resp B/P Pulse Ox O2 Delivery O2 Flow Rate FiO2 04/02/16 08:10 98.8 104 20 147/81 96 Nasal Cannula 5.00 04/02/16 08:09 97 Nasal Cannula 5.00 04/02/16 08:01 96 Nasal Cannula 5.00 04/02/16 04:00 98.8 105 22 159/80 93 Nasal Cannula 5.00 04/02/16 00:25 98.8 98 17 148/59 97 Room Air 04/02/16 00:18 98.8 98 17 148/79 97 Room Air 04/02/16 00:00 98.8 98 17 148/79 97 Nasal Cannula 5.00 04/01/16 22:24 98.5 99 137/76 Room Air 04/01/16 22:04 99.0 101 136/76 04/01/16 20:25 97 Nasal Cannula 4.00 04/01/16 20:10 98.3 101 22 154/81 97 Nasal Cannula 5.00 04/01/16 17:00 99.0 90 22 130/65 Nasal Cannula 4.00 04/01/16 16:00 99.5 102 18 136/68 97 Nasal Cannula 5.00 04/01/16 14:35 98.8 96 20 116/67 Nasal Cannula 4.00 04/01/16 14:20 98.8 88 24 119/68 97 Nasal Cannula 4.00 04/01/16 12:00 99.2 106 18 133/68 97 Nasal Cannula 5.00 I & O 04/02/16 07:00 Intake Total 3190 ml Output Total 1950 ml Balance 1240 ml Capillary Refill : Less Than 3 Seconds General Appearance: WD/WN Mild Distress (due to uncontrolled pain) HEENT: Pharynx Normal Neck: Full Range of Motion Supple Respiratory: Chest Non Tender Normal Breath Sounds (on right) Decreased Breath Sounds (no breath sounds on left) Cardiovascular: Regular Rate, Rhythm Gastrointestinal: normal bowel sounds non tender soft no organomegaly no pulsatile mass Extremity: Pedal Edema (trace) Neurologic/Psychiatric: Alert Oriented x3 No Motor/Sensory Deficits Normal Mood/Affect Skin: Warm/Dry Results Lab Laboratory Tests 04/01/16 13:15: Vancomycin Level Trough 9.6L 04/02/16 05:27: Anion Gap 11, BUN/Creatinine Ratio 28, Basophils # (Auto) 0.0, Basophils (%) ( Auto) 0, Blood Urea Nitrogen 19H, Calcium Level 9.0, Carbon Dioxide Level 22, Chloride Level 108H, Creatinine 0.69, Eosinophils # (Auto) 0.0, Eosinophils (%) (Auto) 0, Estimat Glomerular Filtration Rate > 60, Glucose Level 98, Hematocrit 28L, Hemoglobin 9.2#L, Lymphocytes # (Auto) 1.1, Lymphocytes (%) (Auto) 8L, Magnesium Level 1.7L, Mean Corpuscular Hemoglobin 30, Mean Corpuscular Hemoglobin Concent 32, Mean Corpuscular Volume 93, Mean Platelet Volume 9.6, Monocytes # (Auto) 0.6, Monocytes (%) (Auto) 4, Neutrophils # (Auto) 13.0H, Neutrophils (%) (Auto) 88H, Phosphorus Level 4.0, Platelet Count 105L, Potassium Level 2.9L, Red Blood Count 3.06L, Red Cell Distribution Width 16.2H, Sodium Level 141, White Blood Count 14.8H Microbiology 03/31/16 Blood Culture - Preliminary, Resulted No growth Assessment/Plan Assessment/Plan Assess & Plan/Chief Complaint SEPSIS LEUKOCYTOSIS HYDROPNEUMOTHORAX POST-OBSTRUCTIVE PNEUMONIA SMALL CELL LUNG CANCER DYSPNEA HYPOTENSION TACHYCARDIA CHEST PAIN CHRONIC NAUSEA UNCONTROLLED CHEST WALL PAIN SEPSIS - IMPROVED- , CONTINUE WITH IV FLUIDS, TRIPLE ANTIBIOTIC THERAPY - ZOSYN , LEVAQUIN, VANCOMYCIN HYDROPNEUMOTHORAX -WITH PNEUMONIA - CONTINUE WITH TREATMENT OF POST- OBSTRUCTIVE PNEUMONIA. PT RECENTLY OFF OF STEROIDS - PT GIVEN STRESS DOSE OF STEROIDS TODAY. CONSULT PLACED TO DR. SAMUELS SMALL CELL LUNG CANCER - PT NOT DUE TO REPEAT CHEMOTHERAPY UNTIL 04/05/16, DR. 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 CHRONIC NAUSEA - RESTART ZOFRAN, SCOPOLAMINE PATCH, PROMETHAZINE ANEMIA -POST TRANSFUSION - IMPROVED/STABLE HGB MILDLY ELEVATED LIVER ENZYMES - DUE TO HYPOTENSION - IMPROVING. Diagnosis/Problems: Clinical Quality Measures DVT/VTE Risk/Contraindication: Risk Factor Score Per Nursin RFS Level Per Nursing on Admit: 4+=Very High TYSON TALAMANTES MD Apr 02, 2016 10:51
[2016-04-02] MEDS ORDERED: diphenhydrAMINE 50 MG/ML INJ (BENADRYL) IV PRN (11:00)
[2016-04-02] MEDS ORDERED: KCL 20 MEQ TAB (K-DUR) PO NR (11:00)
[2016-04-02] MEDS ORDERED: METOCLOPRAMIDE INJ 10 MG/2 ML (REGLAN) IV PRN (11:00)
[2016-04-02] MEDS ORDERED: NALOXONE 0.4 MG/ML 1 ML (NARCAN) VIAL IV PRN (11:00)
[2016-04-02] MEDS: LEVOFLOXACIN 750 MG/150 ML IV 150 ML IV SCH (11:01)
[2016-04-02] MEDS: fentaNYL PCA 300 MCG/30 ML VIAL IV PRN ×3 (11:42→23:01)
--- NOTE | 2016-04-02 11:49 | Pulmonary Progress Note ---
Subjective Subjective/Events-last exam Pt reports she feels better but is still short of breath when she walks any distance. She was in pain last night but her pain is better controlled now and reports it was all on her left side and in her back. Exam Exam Vital Signs Date Time Temp Pulse Resp B/P Pulse Ox O2 Delivery O2 Flow Rate FiO2 04/02/16 08:10 98.8 104 20 147/81 96 Nasal Cannula 5.00 04/02/16 08:09 97 Nasal Cannula 5.00 04/02/16 08:01 96 Nasal Cannula 5.00 04/02/16 04:00 98.8 105 22 159/80 93 Nasal Cannula 5.00 04/02/16 00:25 98.8 98 17 148/59 97 Room Air 04/02/16 00:18 98.8 98 17 148/79 97 Room Air 04/02/16 00:00 98.8 98 17 148/79 97 Nasal Cannula 5.00 04/01/16 22:24 98.5 99 137/76 Room Air 04/01/16 22:04 99.0 101 136/76 04/01/16 20:25 97 Nasal Cannula 4.00 04/01/16 20:10 98.3 101 22 154/81 97 Nasal Cannula 5.00 04/01/16 17:00 99.0 90 22 130/65 Nasal Cannula 4.00 04/01/16 16:00 99.5 102 18 136/68 97 Nasal Cannula 5.00 04/01/16 14:35 98.8 96 20 116/67 Nasal Cannula 4.00 04/01/16 14:20 98.8 88 24 119/68 97 Nasal Cannula 4.00 04/01/16 12:00 99.2 106 18 133/68 97 Nasal Cannula 5.00 I & O 04/02/16 07:00 Intake Total 3190 ml Output Total 1950 ml Balance 1240 ml General Appearance: No Apparent Distress WD/WN HEENT: PERRL/EOMI Normal ENT Inspection Pharynx Normal Neck: Full Range of Motion Normal Inspection Non Tender Supple Respiratory: No Respiratory Distress Decreased Breath Sounds (ON LEFT , CLEAR ON RIGHT) Rales Rhonci Cardiovascular: Regular Rate, Rhythm Capillary Refill: Less Than 3 Seconds Peripheral Pulses: 2+ Radial Pulses (L) Gastrointestinal: normal bowel sounds non tender soft no organomegaly no pulsatile mass Extremity: Normal Capillary Refill Non Tender No Calf Tenderness Pedal Edema Swelling Neurologic/Psychiatric: Alert Oriented x3 No Motor/Sensory Deficits Normal 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 Norm as Tested Skin: Normal Color Warm/Dry Lymphatic: No Adenopathy Results Lab Laboratory Tests 03/31/16 16:50 04/01/16 04:32 04/02/16 05:27 Assessment/Plan Assessment/Plan Sepsis - improving -ulcas cultures pending Endobronchial mass causing atelectasis and opacification of left lung - CT of lung - reviewed Lg Pleural Effusion -pt has chemo on 04/05 -if sx of shortness of breath worsen - thoracentesis Anemia -improved s/p PRBC -Monitor Post obstructive pneumonia -zosyn, levaquin and vanco -oxygen at 3L -wears oxygen at night Tobacco Dependence Small cell lung cancer with mets Dyspnea - monitor Clinical Quality Measures DVT/VTE Risk/Contraindication: Risk Factor Score Per Nursin RFS Level Per Nursing on Admit: 4+=Very High JUSTINE SHAW APRN Apr 02, 2016 11:49
[2016-04-02] MEDS: NS IV 1000 ML 1,000 ML IV SCH (12:36)
[2016-04-02] MEDS ORDERED: KCL 10 MEQ TAB (MICRO K) PO NR (12:45)
[2016-04-02] MEDS ORDERED: TROUGH ORDER-PHARMACY XX NR (13:00)
--- NOTE | 2016-04-02 16:36 | Progress Note (SOAP) ---
Subjective Subjective/Events-last exam Feeling better today; Still with dyspnea; Objective Exam Vital Signs Date Time Temp Pulse Resp B/P Pulse Ox O2 Delivery O2 Flow Rate FiO2 04/02/16 14:33 96 Nasal Cannula 5.00 04/02/16 12:00 97.8 118 22 114/53 97 Nasal Cannula 5.00 04/02/16 11:38 96 Nasal Cannula 5.00 04/02/16 08:10 98.8 104 20 147/81 96 Nasal Cannula 5.00 04/02/16 08:09 97 Nasal Cannula 5.00 04/02/16 08:01 96 Nasal Cannula 5.00 04/02/16 08:00 96 Nasal Cannula 5.00 04/02/16 04:00 98.8 105 22 159/80 93 Nasal Cannula 5.00 04/02/16 00:25 98.8 98 17 148/59 97 Room Air 04/02/16 00:18 98.8 98 17 148/79 97 Room Air 04/02/16 00:00 98.8 98 17 148/79 97 Nasal Cannula 5.00 04/01/16 22:24 98.5 99 137/76 Room Air 04/01/16 22:04 99.0 101 136/76 04/01/16 20:25 97 Nasal Cannula 4.00 04/01/16 20:10 98.3 101 22 154/81 97 Nasal Cannula 5.00 04/01/16 17:00 99.0 90 22 130/65 Nasal Cannula 4.00 I & O 04/02/16 07:00 Intake Total 3190 ml Output Total 1950 ml Balance 1240 ml Capillary Refill : Less Than 3 Seconds General Appearance: No Apparent Distress WD/WN HEENT: Other (left eye enucleated; prosthesis in place;) Neck: Normal Inspection Non Tender Supple Respiratory: Crackles Decreased Breath Sounds (left base) Cardiovascular: Tachycardia Gastrointestinal: normal bowel sounds non tender soft no organomegaly Extremity: Normal Range of Motion Non Tender No Calf Tenderness Neurologic/Psychiatric: Alert Oriented x3 No Motor/Sensory Deficits Normal 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/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 II-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 Norm as Tested Results Lab Laboratory Tests 03/31/16 16:50 04/01/16 04:32 04/02/16 05:27 Laboratory Tests 04/02/16 05:27: Anion Gap 11, BUN/Creatinine Ratio 28, Basophils # (Auto) 0.0, Basophils (%) ( Auto) 0, Blood Urea Nitrogen 19H, Calcium Level 9.0, Carbon Dioxide Level 22, Chloride Level 108H, Creatinine 0.69, Eosinophils # (Auto) 0.0, Eosinophils (%) (Auto) 0, Estimat Glomerular Filtration Rate > 60, Glucose Level 98, Hematocrit 28L, Hemoglobin 9.2#L, Lymphocytes # (Auto) 1.1, Lymphocytes (%) (Auto) 8L, Magnesium Level 1.7L, Mean Corpuscular Hemoglobin 30, Mean Corpuscular Hemoglobin Concent 32, Mean Corpuscular Volume 93, Mean Platelet Volume 9.6, Monocytes # (Auto) 0.6, Monocytes (%) (Auto) 4, Neutrophils # (Auto) 13.0H, Neutrophils (%) (Auto) 88H, Phosphorus Level 4.0, Platelet Count 105L, Potassium Level 2.9L, Red Blood Count 3.06L, Red Cell Distribution Width 16.2H, Sodium Level 141, White Blood Count 14.8H Microbiology 03/31/16 Blood Culture - Preliminary, Resulted No growth Assessment/Plan Assessment/Plan Assess & Plan/Chief Complaint 1. 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 a. Status post one cycle of cisplatin and Etoposide administered on through . b. Patient is due for Cycle 2 on 04/05/16; c. If no shrinkage or masses noted with this cycle of chemotherapy then patient will be deemed refractory to first-line cisplatin and etoposide and regimen will be changed to Topotecan; 2. Large left malignant pleural effusion--may need therapeutic/diagnostic for bacterial culture thoracentesis under image guidance; 3. Fever/ Postobstructive pneumonia--on triple antibiotics: IV levofloxacin, Zosyn, and vancomycin. 4. Symptomatic anemia-3 transfuse 2 units packed RBCs with Lasix to be given prior to second unit 5. [place] is poor because of patient's extensive disease , above pnemonia, poor reserves. Diagnosis/Problems: Clinical Quality Measures DVT/VTE Risk/Contraindication: Risk Factor Score Per Nursin RFS Level Per Nursing on Admit: 4+=Very High DANIA CAT MD Apr 02, 2016 16:36
[2016-04-02] MEDS: ENOXAPARIN 40 MG/0.4 ML (LOVENOX) SYR SC SCH (18:09)
[2016-04-02] MEDS ORDERED: fentaNYL INJECTION 100 MCG/2 ML AMP IVP NR (18:48)
[2016-04-02] MEDS ORDERED: KETOROLAC 30 MG/ML VIAL IVP NR (19:00)
[2016-04-02] MEDS ORDERED: GABAPENTIN 100 MG (NEURONTIN) CAP PO NR (19:00)
[2016-04-02] MEDS ORDERED: NS 100 ML (IVPB) BAG IV ONE (19:15)
[2016-04-02] MEDS ORDERED: IOHEXOL 350 MG/ML 100 ML (OMNIPAQUE 350) VIAL IV ONE (19:15)
--- NOTE | 2016-04-02 20:15 | Diagnostic Imaging Report ---
EXAMINATION: CT cervicothoracic and lumbar spine without contrast INDICATION: Back pain Contiguous axial sections were taken through the spine. Sagittal and coronal reconstructed images were also obtained. There are no prior CT examinations available for comparison. In the cervical region the reconstructed parasagittal images show slight anterior translation of C4 with respect to C5. The alignment of the other vertebral bodies is within normal limits. There is narrowing of the neural foramen on the left at C4-5 and bilaterally at C5-6 and C6-7. There does not appear to be any significant central stenosis in the cervical region. There is no fracture or acute bony abnormality identified. There is no sign of retropharyngeal edema. However, there are numerous enlarged lymph nodes in both supraclavicular regions. The images of the thoracic spine reveal that there are anterior wedge compression deformities of T6-T11. I suspect these findings are long-standing in nature. There is degenerative disc disease in this region as well but the thecal sac does not seem to be compressed. The parasagittal images of the lumbar region show that there is a 20-30% compression fracture of L4. The age of this injury is indeterminate, but this could be acute or subacute in nature. If further study is desired, then MRI would be recommended. There is no other acute bony abnormality of the lumbar spine identified. There does appear to be trefoil stenosis at L3-4 and L4-5. The images through the thorax also show that there is complete opacification of the left thorax by atelectasis/infiltrate and fluid. A small right pleural effusion is also seen. There also appears to be extensive mediastinal adenopathy. CT of the chest is pending for further study. IMPRESSION: 1. There is a 20-30% compression deformity of L4. The age of this injury is indeterminate, but this may well be acute or subacute. MRI would be recommended for further study. 2. The anterior wedge compression deformities of T6 through T11 are most likely long-standing in nature. These could also be further evaluated for an acuity injury by MR if indicated. 3. There is no acute bony abnormality of the cervical spine. 4. There is spinal stenosis at L3-4 and L4-5. There is no other significant central stenosis of the thoracic or cervical spine identified. 5. CT of the chest is pending for further evaluation. 6. These results were discussed with Dr. Jenny Salcedo at the time of this dictation. CRITICAL FINDING Dictated by: Dictated on workstation # [id number]
--- NOTE | 2016-04-02 20:43 | Diagnostic Imaging Report ---
PROCEDURE: CT chest with contrast only. TECHNIQUE: Multiple contiguous axial images were obtained through the chest after administration of intravenous contrast. INDICATION: Small cell cancer. FINDINGS: The recent CT chest exam of 04/01/16 noted large neoplastic masses involving the mediastinum and left hilum as well as collapse of most of the left lung with a large left pleural effusion. Those findings are again evident on this study and do not seem to have changed significantly. As on the prior exam, the right lung remains generally clear. There is a small amount of fluid in the right lung base. The aorta is not abnormally dilated. There is no definite defect within the pulmonary arteries to indicate a pulmonary embolus. The heart, itself, is stable in size. The suspected metastatic lesions in the liver, seen previously, are partially visualized on this exam. IMPRESSION: 1. When compared to the previous study, there has been no significant change. There are large neoplastic masses involving the mediastinum and left hilum and there is complete collapse of the left lung and a large left pleural effusion. There is no definite defect within the pulmonary arteries to indicate a pulmonary embolus. 2. These results were discussed with Dr. Salcedo. Dictated by: Dictated on workstation # [id number]
[2016-04-02] MEDS: ATORVASTATIN 40 MG (LIPITOR) TABLET PO SCH (20:57)
[2016-04-02] MEDS ORDERED: LIDOCAINE (LIDODERM) 5% PATCH TOP SCH (21:00)
[2016-04-02] MEDS ORDERED: GABAPENTIN 100 MG (NEURONTIN) CAP PO ONE (22:00)
[2016-04-02] MEDS ORDERED: KETOROLAC 30 MG/ML VIAL IVP ONE (22:00)
[2016-04-03] VITALS: BP 124/76
[2016-04-03 04:00] VITALS: BP 142/76
[2016-04-03 05:32] LABS: BASOPHILS % (AUTO) 0 % (0-10); EOSINOPHILS % (AUTO) 0 % (0-10); LYMPHOCYTES # (AUTO) 1.5 X 10^3 (1.0-4.0); LYMPHOCYTES % (AUTO) 13 % (12-44); MEAN CORPUSCULAR HEMOGLOBIN 30 PG (25-34); MEAN CORPUSCULAR HGB CONC 32 G/DL (32-36); MEAN CORPUSCULAR VOLUME 93 FL (80-99); MEAN PLATELET VOLUME 9.1 FL (7.4-10.4); MONOCYTES # (AUTO) 0.8 X 10^3 (0.0-1.0); MONOCYTES % (AUTO) 8 % (0-12); NEUTROPHILS # (AUTO) 8.5 X 10^3 (1.8-7.8); NEUTROPHILS % (AUTO) 79 % (42-75); PLATELET COUNT 90 10^3/uL (130-400); RED BLOOD COUNT 3.02 10^6/uL (4.35-5.85); RED CELL DISTRIBUTION WIDTH 16.5 % (10.0-14.5); WHITE BLOOD COUNT 10.8 10^3/uL (4.3-11.0)
[2016-04-03 05:50] LABS: ANION GAP 10 MMOL/L (5-14); BLOOD UREA NITROGEN 19 MG/DL (7-18); BUN/CREATININE RATIO 27; CALCIUM 9.6 MG/DL (8.5-10.1); CARBON DIOXIDE 24 MMOL/L (21-32); CHLORIDE 109 MMOL/L (98-107); GFR ESTIMATED > 60; GLUCOSE 80 MG/DL (70-105); MAGNESIUM 1.7 MG/DL (1.8-2.4); PHOSPHORUS 3.8 MG/DL (2.3-4.7); POTASSIUM 3.2 MMOL/L (3.6-5.0); SODIUM 143 MMOL/L (135-145)
[2016-04-03] MEDS: KCL 10 MEQ TAB (MICRO K) PO SCH (06:01)
[2016-04-03] MEDS: LACTOBACILLUS Acidoph/Bulgar (LACTINEX/FLORANEX) TAB PO SCH ×3 (06:01→15:48)
[2016-04-03] MEDS: PANTOPRAZOLE 20 MG TABLET (PROTONIX) PO SCH (06:01)
[2016-04-03] MEDS: fentaNYL PCA 300 MCG/30 ML VIAL IV PRN ×6 (06:44→22:57)
[2016-04-03] MEDS: RT-ADVAIR HFA 115/21 MCG PER PUFF IH SCH ×2 (06:55→19:44)
[2016-04-03] MEDS: RT-ALBUTEROL SULF 2.5 MG/3 ML PRE-MIX VIAL INH SCH ×4 (06:55→19:44)
[2016-04-03] MEDS ORDERED: KCL 20 MEQ TAB (K-DUR) PO SCH (07:00)
[2016-04-03 08:00] VITALS: BP 135/76
[2016-04-03] MEDS: LIDOCAINE (LIDODERM) 5% PATCH TOP SCH (08:58)
[2016-04-03] MEDS: SENNA W/DOCUSATE (SENOKOT S) TABLET PO SCH ×3 (08:58→20:29)
[2016-04-03] MEDS: HYDROcodone/APAP 10 MG/325 MG (LORTAB) TAB PO PRN ×2 (08:58→20:29)
[2016-04-03] MEDS ORDERED: PATCH REMOVAL TP SCH (08:59)
[2016-04-03] MEDS: DICLOFENAC 1% GEL 100 GM (VOLTAREN) TUBE TP SCH ×4 (08:59→20:30)
--- NOTE | 2016-04-03 10:10 | Progress Note (SOAP) ---
Subjective Subjective/Events-last exam PT REPORTS THAT SHE IS FEELING FATIGUED. SHE REPORTS THAT HER BACK PAIN HAS IMPROVED SLIGHTLY SINCE LAST NIGHT AND HER WEAKNESS OF LEGS HAS IMPROVED WELL. SHE STATES THAT SHE STILL HAS NAUSEA, BUT IT HAS IMPROVED SOMEWHAT. SHE DENIES CONSTIPATION AT THIS TIME. Review of Systems General: Fatigue Malaise HEENT: No Head Aches Pulmonary: Dyspnea Cough Cardiovascular: : EdemaNo: Chest Pain Gastrointestinal: : NauseaNo: Abdominal Pain Genitourinary: No Dysuria Musculoskeletal: : back pain: leg pain Neurological: : Weakness Objective Exam Vital Signs Date Time Temp Pulse Resp B/P Pulse Ox O2 Delivery O2 Flow Rate FiO2 04/03/16 08:00 99.4 108 20 135/76 95 Nasal Cannula 5.00 04/03/16 06:55 98 Nasal Cannula 5.00 04/03/16 06:44 18 04/03/16 06:44 18 04/03/16 04:00 98.8 97 18 142/76 97 Nasal Cannula 5.00 04/03/16 00:00 98.9 99 18 124/76 99 Nasal Cannula 5.00 04/02/16 23:02 21 04/02/16 23:01 21 04/02/16 20:55 Nasal Cannula 5.00 04/02/16 20:16 97 Nasal Cannula 5.00 04/02/16 20:00 98.9 94 21 163/98 96 Nasal Cannula 5.00 04/02/16 19:11 98 Nasal Cannula 5.00 04/02/16 16:00 98.6 105 18 121/64 96 Nasal Cannula 5.00 04/02/16 14:33 96 Nasal Cannula 5.00 04/02/16 12:00 97.8 118 22 114/53 97 Nasal Cannula 5.00 04/02/16 11:38 96 Nasal Cannula 5.00 I & O 04/03/16 07:00 Intake Total 1800 ml Output Total 1700 ml Balance 100 ml Capillary Refill : Less Than 3 Seconds General Appearance: No Apparent Distress WD/WN Neck: Supple Respiratory: Decreased Breath Sounds (NO SOUNDS ON LEFT WITH CLEAR SOUNDS ON RIGHT) Cardiovascular: Regular Rate, Rhythm Gastrointestinal: normal bowel sounds non tender soft no organomegaly no pulsatile mass Extremity: Pedal Edema (1+) Neurologic/Psychiatric: Alert Oriented x3 No Motor/Sensory Deficits Normal Mood/Affect Skin: Warm/Dry Results Lab Laboratory Tests 04/02/16 16:34: Lab Scanned Report Transfusion Reaction Form 04/03/16 05:25: Anion Gap 10, BUN/Creatinine Ratio 27, Basophils # (Auto) 0.0, Basophils (%) ( Auto) 0, Blood Urea Nitrogen 19H, Calcium Level 9.6, Carbon Dioxide Level 24, Chloride Level 109H, Creatinine 0.70, Eosinophils # (Auto) 0.0, Eosinophils (%) (Auto) 0, Estimat Glomerular Filtration Rate > 60, Glucose Level 80, Hematocrit 28L, Hemoglobin 8.9L, Lymphocytes # (Auto) 1.5, Lymphocytes (%) (Auto) 13, Magnesium Level 1.7L, Mean Corpuscular Hemoglobin 30, Mean Corpuscular Hemoglobin Concent 32, Mean Corpuscular Volume 93, Mean Platelet Volume 9.1, Monocytes # (Auto) 0.8, Monocytes (%) (Auto) 8, Neutrophils # (Auto) 8.5H, Neutrophils (%) (Auto) 79H, Phosphorus Level 3.8, Platelet Count 90L, Potassium Level 3.2L, Red Blood Count 3.02L, Red Cell Distribution Width 16.5H, Sodium Level 143, White Blood Count 10.8 Microbiology 03/31/16 Blood Culture - Preliminary, Resulted No growth Assessment/Plan Assessment/Plan Assess & Plan/Chief Complaint SEPSIS LEUKOCYTOSIS HYDROPNEUMOTHORAX POST-OBSTRUCTIVE PNEUMONIA SMALL CELL LUNG CANCER DYSPNEA HYPOTENSION TACHYCARDIA CHEST PAIN CHRONIC NAUSEA UNCONTROLLED CHEST WALL PAIN SEPSIS - IMPROVED- , CONTINUE WITH IV FLUIDS, TRIPLE ANTIBIOTIC THERAPY - ZOSYN , LEVAQUIN, VANCOMYCIN HYDROPNEUMOTHORAX -WITH PNEUMONIA - CONTINUE WITH TREATMENT OF POST- OBSTRUCTIVE PNEUMONIA. PT RECENTLY OFF OF STEROIDS - PT GIVEN STRESS DOSE OF STEROIDS TODAY. CONSULT PLACED TO DR. SAMUELS SMALL CELL LUNG CANCER - PT NOT DUE TO REPEAT CHEMOTHERAPY UNTIL 04/05/16, DR. 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 PAIN IMPROVED WITH LIDOCAINE PATCH ON HER BACK AND ALSO WITH NEURONTIN LAST NIGHT -WILL CONTINUE WITH TORADOL, MONITOR SYMPTOMS CLOSELY. I HAVE DISCUSSED WITH THE PT AND HER DAUGHTERS - THEY ARE ALL AWARE OF THE GRAVITY OF THE ILLNESS, ROSIBEL CONTINUES TO WANT TO TRY CHEMOTHERAPY AT THIS TIME AND YET UNDERSTANDS HOW BAD HER CANCER IS WITH THE EXTENT OF THE ILLNESS CURRENTLY. Diagnosis/Problems: Clinical Quality Measures DVT/VTE Risk/Contraindication: Risk Factor Score Per Nursin RFS Level Per Nursing on Admit: 4+=Very High TYSON TALAMANTES MD Apr 03, 2016 10:10
[2016-04-03] MEDS: NS IV 1000 ML 1,000 ML IV SCH (11:39)
[2016-04-03] MEDS: LEVOFLOXACIN 750 MG/150 ML IV 150 ML IV SCH (11:40)
[2016-04-03 12:00] VITALS: BP 130/72
[2016-04-03] MEDS ORDERED: FUROSEMIDE 40 MG/4 ML INJ (LASIX) IVP ONE (12:00)
[2016-04-03] MEDS: KCL 20 MEQ TAB (K-DUR) PO ONE ×2 (12:11→12:15)
[2016-04-03] MEDS ORDERED: KCL 10 MEQ TAB (MICRO K) PO ONE (12:15)
[2016-04-03 12:43] LABS: ALBUMIN 3.1 G/DL (3.2-4.5); BILIRUBIN,DIRECT 0.1 MG/DL (0.0-0.3); BILIRUBIN,INDIRECT 0.1 MG/DL; BILIRUBIN,TOTAL 0.2 MG/DL (0.1-1.0); TOTAL PROTEIN 4.8 G/DL (6.4-8.2)
[2016-04-03] MEDS ORDERED: fentaNYL INJECTION 100 MCG/2 ML AMP ONE (13:41)
[2016-04-03] MEDS ORDERED: fentaNYL INJECTION 100 MCG/2 ML AMP IVP STA (13:43)
[2016-04-03] MEDS ORDERED: KETOROLAC 30 MG/ML VIAL IVP ONE (13:45)
[2016-04-03] MEDS: GABAPENTIN 100 MG (NEURONTIN) CAP PO SCH ×2 (14:00→20:29)
--- NOTE | 2016-04-03 14:45 | Progress Note (SOAP) ---
Subjective Subjective/Events-last exam Reports low back pain worse since she had a fall at home prior to this admission ; she has no difficulty with walking or report of focal weakness at this time. Objective Exam Vital Signs Date Time Temp Pulse Resp B/P Pulse Ox O2 Delivery O2 Flow Rate FiO2 04/03/16 12:38 22 04/03/16 12:00 98.9 78 20 130/72 98 Nasal Cannula 5.00 04/03/16 11:00 95 Nasal Cannula 5.00 04/03/16 08:00 99.4 108 20 135/76 95 Nasal Cannula 5.00 04/03/16 06:55 98 Nasal Cannula 5.00 04/03/16 06:44 18 04/03/16 06:44 18 04/03/16 04:00 98.8 97 18 142/76 97 Nasal Cannula 5.00 04/03/16 00:00 98.9 99 18 124/76 99 Nasal Cannula 5.00 04/02/16 23:02 21 04/02/16 23:01 21 04/02/16 20:55 Nasal Cannula 5.00 04/02/16 20:16 97 Nasal Cannula 5.00 04/02/16 20:00 98.9 94 21 163/98 96 Nasal Cannula 5.00 04/02/16 19:11 98 Nasal Cannula 5.00 04/02/16 16:00 98.6 105 18 121/64 96 Nasal Cannula 5.00 I & O 04/03/16 07:00 Intake Total 1800 ml Output Total 1700 ml Balance 100 ml Capillary Refill : Less Than 3 Seconds General Appearance: No Apparent Distress Obese Neck: Full Range of Motion Non Tender Supple Respiratory: Wheezing (bilateral wheezing; decreased breath sound and dullness left lung) Cardiovascular: Regular Rate, Rhythm No JVD Gastrointestinal: normal bowel sounds non tender soft Extremity: Swelling (1+ edema both feet) Results Lab Laboratory Tests 04/02/16 16:34: Lab Scanned Report Transfusion Reaction Form 04/03/16 05:25: Alanine Aminotransferase (ALT/SGPT) 77H, Albumin 3.1L, Alkaline Phosphatase 84, Anion Gap 10, Aspartate Amino Transf (AST/SGOT) 42H, BUN/Creatinine Ratio 27, Basophils # (Auto) 0.0, Basophils (%) (Auto) 0, Blood Urea Nitrogen 19H, Calcium Level 9.6, Carbon Dioxide Level 24, Chloride Level 109H, Creatinine 0.70 , Direct Bilirubin 0.1, Eosinophils # (Auto) 0.0, Eosinophils (%) (Auto) 0, Estimat Glomerular Filtration Rate > 60, Glucose Level 80, Hematocrit 28L, Hemoglobin 8.9L, Indirect Bilirubin 0.1, Lymphocytes # (Auto) 1.5, Lymphocytes ( %) (Auto) 13, Magnesium Level 1.7L, Mean Corpuscular Hemoglobin 30, Mean Corpuscular Hemoglobin Concent 32, Mean Corpuscular Volume 93, Mean Platelet Volume 9.1, Monocytes # (Auto) 0.8, Monocytes (%) (Auto) 8, Neutrophils # (Auto ) 8.5H, Neutrophils (%) (Auto) 79H, Phosphorus Level 3.8, Platelet Count 90L, Potassium Level 3.2L, Red Blood Count 3.02L, Red Cell Distribution Width 16.5H, Sodium Level 143, Total Bilirubin 0.2, Total Protein 4.8L, White Blood Count 10.8 Microbiology 03/31/16 Blood Culture - Preliminary, Resulted No growth 04/02/16 Gram Stain - Final, Resulted 04/02/16 Sputum Culture - Preliminary, Resulted Usual/normal nayla isolated. Radiology CT spine done 04/02/16:IMPRESSION: 1. There is a 20-30% compression deformity of L4. The age of this injury is indeterminate, but this may well be acute or subacute. MRI would be recommended for further study. 2. The anterior wedge compression deformities of T6 through T11 are most likely long-standing in nature. These could also be further evaluated for an acuity injury by MR if indicated. 3. There is no acute bony abnormality of the cervical spine. 4. There is spinal stenosis at L3-4 and L4-5. There is no other significant central stenosis of the thoracic or cervical spine identified. Assessment/Plan Assessment/Plan Assess & Plan/Chief Complaint 1. 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 a. Status post one cycle of cisplatin and Etoposide administered on through . b. Patient is due for Cycle 2 on 04/05/16; c. If no shrinkage or masses noted with this cycle of chemotherapy then patient will be deemed refractory to first-line cisplatin and etoposide and regimen will be changed to Topotecan; 2. Large left malignant pleural effusion--may need therapeutic/diagnostic for bacterial culture thoracentesis under image guidance; 3. Fever/ Postobstructive pneumonia--on triple antibiotics: IV levofloxacin, Zosyn, and vancomycin. 4. Symptomatic anemia-3 transfuse 2 units packed RBCs with Lasix to be given prior to second unit 5. [place] is poor because of patient's extensive disease , above pnemonia, poor reserves. Diagnosis/Problems: Clinical Quality Measures DVT/VTE Risk/Contraindication: Risk Factor Score Per Nursin RFS Level Per Nursing on Admit: 4+=Very High DANIA CAT MD Apr 03, 2016 14:45
[2016-04-03 16:00] VITALS: BP 134/82
[2016-04-03 19:56] VITALS: BP 129/79
[2016-04-03] MEDS: ATORVASTATIN 40 MG (LIPITOR) TABLET PO SCH (20:29)
[2016-04-03] MEDS ORDERED: LIDOCAINE (LIDODERM) 5% PATCH TOP ONE (21:00)
[2016-04-03] MEDS: KETOROLAC 15 MG/ML VIAL IVP PRN (22:49)
[2016-04-04] VITALS: BP 136/75
[2016-04-04] MEDS: HYDROcodone/APAP 10 MG/325 MG (LORTAB) TAB PO PRN ×5 (01:26→20:12)
[2016-04-04] MEDS: fentaNYL PCA 300 MCG/30 ML VIAL IV PRN ×7 (01:49→23:07)
[2016-04-04 04:00] VITALS: BP 137/73
[2016-04-04] MEDS: KCL 10 MEQ TAB (MICRO K) PO SCH (06:03)
[2016-04-04] MEDS: LACTOBACILLUS Acidoph/Bulgar (LACTINEX/FLORANEX) TAB PO SCH ×3 (06:03→17:33)
[2016-04-04] MEDS: PANTOPRAZOLE 20 MG TABLET (PROTONIX) PO SCH (06:03)
[2016-04-04 06:09] LABS: BASOPHILS % (AUTO) 1 % (0-10); EOSINOPHILS % (AUTO) 0 % (0-10); LYMPHOCYTES # (AUTO) 1.4 X 10^3 (1.0-4.0); LYMPHOCYTES % (AUTO) 18 % (12-44); MEAN CORPUSCULAR HEMOGLOBIN 30 PG (25-34); MEAN CORPUSCULAR HGB CONC 32 G/DL (32-36); MEAN CORPUSCULAR VOLUME 95 FL (80-99); MEAN PLATELET VOLUME 9.6 FL (7.4-10.4); MONOCYTES # (AUTO) 0.7 X 10^3 (0.0-1.0); MONOCYTES % (AUTO) 8 % (0-12); NEUTROPHILS # (AUTO) 5.9 X 10^3 (1.8-7.8); NEUTROPHILS % (AUTO) 74 % (42-75); PLATELET COUNT 75 10^3/uL (130-400); RED BLOOD COUNT 3.05 10^6/uL (4.35-5.85); RED CELL DISTRIBUTION WIDTH 16.7 % (10.0-14.5)
[2016-04-04 06:26] LABS: ANION GAP 10 MMOL/L (5-14); BLOOD UREA NITROGEN 17 MG/DL (7-18); BUN/CREATININE RATIO 25; CALCIUM 9.2 MG/DL (8.5-10.1); CARBON DIOXIDE 27 MMOL/L (21-32); CHLORIDE 106 MMOL/L (98-107); CREATININE SERUM 0.68 MG/DL (0.60-1.30); GFR ESTIMATED > 60; GLUCOSE 112 MG/DL (70-105); MAGNESIUM 1.5 MG/DL (1.8-2.4); PHOSPHORUS 4.7 MG/DL (2.3-4.7); POTASSIUM 3.4 MMOL/L (3.6-5.0); SODIUM 143 MMOL/L (135-145)
[2016-04-04] MEDS: RT-ALBUTEROL SULF 2.5 MG/3 ML PRE-MIX VIAL INH SCH ×4 (07:00→19:07)
[2016-04-04] MEDS: RT-ADVAIR HFA 115/21 MCG PER PUFF IH SCH ×2 (07:00→19:07)
[2016-04-04 07:35] VITALS: BP 150/80
[2016-04-04] MEDS: KETOROLAC 15 MG/ML VIAL IVP PRN ×2 (07:43→21:33)
[2016-04-04] MEDS: SENNA W/DOCUSATE (SENOKOT S) TABLET PO SCH ×3 (09:00→21:38)
[2016-04-04] MEDS: GABAPENTIN 100 MG (NEURONTIN) CAP PO SCH ×3 (09:32→21:38)
[2016-04-04] MEDS: DICLOFENAC 1% GEL 100 GM (VOLTAREN) TUBE TP SCH ×4 (09:32→21:39)
[2016-04-04] MEDS: LIDOCAINE (LIDODERM) 5% PATCH TOP SCH (09:32)
--- NOTE | 2016-04-04 09:37 | Progress Note (SOAP) ---
Subjective Subjective/Events-last exam Continues to have low back pain. Breathing is stable. Objective Exam Vital Signs Date Time Temp Pulse Resp B/P Pulse Ox O2 Delivery O2 Flow Rate FiO2 04/04/16 08:18 20 04/04/16 07:35 98.2 112 18 150/80 96 Nasal Cannula 5.00 04/04/16 07:02 100 Nasal Cannula 5.00 04/04/16 07:00 100 Nasal Cannula 5.00 04/04/16 06:07 20 04/04/16 06:04 20 04/04/16 04:00 98.0 99 20 137/73 98 Nasal Cannula 5.00 04/04/16 01:56 20 04/04/16 01:49 20 04/04/16 00:00 98.6 97 20 136/75 98 Nasal Cannula 5.00 04/03/16 22:57 20 04/03/16 22:57 20 04/03/16 20:35 Nasal Cannula 5.00 04/03/16 19:56 98.4 104 20 129/79 96 Nasal Cannula 5.00 04/03/16 19:44 97 Nasal Cannula 5.00 04/03/16 18:00 22 04/03/16 17:46 22 04/03/16 16:00 98.2 103 16 134/82 97 Nasal Cannula 5.00 04/03/16 15:10 99 Nasal Cannula 5.00 04/03/16 14:59 22 04/03/16 12:38 22 04/03/16 12:00 98.9 78 20 130/72 98 Nasal Cannula 5.00 04/03/16 11:00 95 Nasal Cannula 5.00 I & O 04/04/16 07:00 Intake Total 3390 ml Output Total 2900 ml Balance 490 ml Capillary Refill : Less Than 3 Seconds General Appearance: No Apparent Distress Obese HEENT: Other Respiratory: Crackles Decreased Breath Sounds Cardiovascular: Regular Rate, Rhythm Other (1+ edema) Gastrointestinal: normal bowel sounds non tender soft Extremity: Swelling Neurologic/Psychiatric: Alert Oriented x3 No Motor/Sensory Deficits technical 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 II- XII Norm as Tested Results Lab Laboratory Tests 04/04/16 06:00 Laboratory Tests 04/04/16 06:00: Anion Gap 10, BUN/Creatinine Ratio 25, Basophils # (Auto) 0.0, Basophils (%) ( Auto) 1, Blood Urea Nitrogen 17, Calcium Level 9.2, Carbon Dioxide Level 27, Chloride Level 106, Creatinine 0.68, Eosinophils # (Auto) 0.0, Eosinophils (%) ( Auto) 0, Estimat Glomerular Filtration Rate > 60, Glucose Level 112H, Hematocrit 29L, Hemoglobin 9.2L, Lymphocytes # (Auto) 1.4, Lymphocytes (%) (Auto ) 18, Magnesium Level 1.5L, Mean Corpuscular Hemoglobin 30, Mean Corpuscular Hemoglobin Concent 32, Mean Corpuscular Volume 95, Mean Platelet Volume 9.6, Monocytes # (Auto) 0.7, Monocytes (%) (Auto) 8, Neutrophils # (Auto) 5.9, Neutrophils (%) (Auto) 74, Phosphorus Level 4.7, Platelet Count 75L, Potassium Level 3.4L, Red Blood Count 3.05L, Red Cell Distribution Width 16.7H, Sodium Level 143, White Blood Count 8.0 Microbiology 03/31/16 Blood Culture - Preliminary, Resulted No growth 04/02/16 Gram Stain - Final, Resulted 04/02/16 Sputum Culture - Preliminary, Resulted Usual/normal nayla isolated. Assessment/Plan Assessment/Plan Assess & Plan/Chief Complaint 1. 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 a. Status post one cycle of cisplatin and Etoposide administered on through . b. Patient is due for Cycle 2 on 04/05/16; c. If no shrinkage or masses noted with this cycle of chemotherapy then patient will be deemed refractory to first-line cisplatin and etoposide and regimen will be changed to Topotecan; 2. Worsening thrombocytopenia-cannot exclude drug effect versus bone marrow infiltration; if persistent we will perform bone marrow aspiration and biopsy to evaluate for marrow infiltration and proceed with chemotherapy. Patient is ineligible for chemotherapy with plate count below 100,000 without documented bone marrow infiltration. 3. Large left malignant pleural effusion--may need therapeutic/diagnostic for bacterial culture thoracentesis under image guidance; 4. Fever/ Postobstructive pneumonia--on triple antibiotics: IV levofloxacin, Zosyn, and vancomycin. 5. Symptomatic anemia-3 transfuse 2 units packed RBCs with Lasix to be given prior to second unit 6. [place] is poor because of patient's extensive disease , above pnemonia, poor reserves. Diagnosis/Problems: Clinical Quality Measures DVT/VTE Risk/Contraindication: Risk Factor Score Per Nursin RFS Level Per Nursing on Admit: 4+=Very High DANIA CAT MD Apr 04, 2016 09:37
[2016-04-04] MEDS: ALPRAZolam 0.5 MG (XANAX) TAB PO PRN (09:42)
[2016-04-04] MEDS ORDERED: MAGNESIUM 4 GM/100 ML IVPB 100 ML IV ONE ×2 (09:45→10:45)
--- NOTE | 2016-04-04 10:12 | Progress Note (SOAP) ---
Subjective Subjective/Events-last exam PT IS A 60 Y/O FEMALE WHO IS KNOWN TO ME FROM CLINIC AND PREVIOUS HOSPITALIZATIONS. JAMMIE HAS SMALL CELL LUNG CANCER, HAS LEFT SIDED MASS OBSTRUCTION OF LUNG WITH LEFT SIDED OPACIFICATION OF CHEST CAVITY. PT HAS FEVERS, AND HAS UNCONTROLLED BACK PAIN WITH LEG DISCOMFORT. PT HAD CT SCAN WHICH SHOWED L4 COMPRESSION FRACTURE. 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 HER DAUGHTERS REPORT THAT THEY ARE NOT ABLE TO CARE FOR HER AT HOME SHE IS CURRENTLY BECAUSE OF HER UNCONTROLLED PAIN AND THEY ARE WONDERING ABOUT SWING BED. Review of Systems General: Fatigue Malaise HEENT: No Head Aches Pulmonary: Dyspnea Cough Pleuritic Chest Pain Cardiovascular: No: Chest Pain Gastrointestinal: : NauseaNo: Abdominal Pain Genitourinary: No Dysuria, Frequency Musculoskeletal: : back pain: leg pain Neurological: : Weakness (LEFT LEG) Objective Exam Vital Signs Date Time Temp Pulse Resp B/P Pulse Ox O2 Delivery O2 Flow Rate FiO2 04/04/16 08:18 20 04/04/16 07:35 98.2 112 18 150/80 96 Nasal Cannula 5.00 04/04/16 07:02 100 Nasal Cannula 5.00 04/04/16 07:00 100 Nasal Cannula 5.00 04/04/16 06:07 20 04/04/16 06:04 20 04/04/16 04:00 98.0 99 20 137/73 98 Nasal Cannula 5.00 04/04/16 01:56 20 04/04/16 01:49 20 04/04/16 00:00 98.6 97 20 136/75 98 Nasal Cannula 5.00 04/03/16 22:57 20 04/03/16 22:57 20 04/03/16 20:35 Nasal Cannula 5.00 04/03/16 19:56 98.4 104 20 129/79 96 Nasal Cannula 5.00 04/03/16 19:44 97 Nasal Cannula 5.00 04/03/16 18:00 22 04/03/16 17:46 22 04/03/16 16:00 98.2 103 16 134/82 97 Nasal Cannula 5.00 04/03/16 15:10 99 Nasal Cannula 5.00 04/03/16 14:59 22 04/03/16 12:38 22 04/03/16 12:00 98.9 78 20 130/72 98 Nasal Cannula 5.00 04/03/16 11:00 95 Nasal Cannula 5.00 I & O 04/04/16 07:00 Intake Total 3390 ml Output Total 2900 ml Balance 490 ml Capillary Refill : Less Than 3 Seconds General Appearance: No Apparent Distress WD/WN Neck: Full Range of Motion Normal Inspection Non Tender Supple Respiratory: Chest Non Tender Decreased Breath Sounds (NO BREATH SOUNDS ON THE LEFT, CLEAR ON RIGHT) Cardiovascular: Regular Rate, Rhythm No Edema Gastrointestinal: normal bowel sounds non tender soft no organomegaly no pulsatile mass Extremity: Normal Capillary Refill No Calf Tenderness Neurologic/Psychiatric: Alert Oriented x3 No Motor/Sensory Deficits Normal Mood/Affect Skin: Warm/Dry Lymphatic: No Adenopathy Results Lab Laboratory Tests 04/04/16 06:00: Anion Gap 10, BUN/Creatinine Ratio 25, Basophils # (Auto) 0.0, Basophils (%) ( Auto) 1, Blood Urea Nitrogen 17, Calcium Level 9.2, Carbon Dioxide Level 27, Chloride Level 106, Creatinine 0.68, Eosinophils # (Auto) 0.0, Eosinophils (%) ( Auto) 0, Estimat Glomerular Filtration Rate > 60, Glucose Level 112H, Hematocrit 29L, Hemoglobin 9.2L, Lymphocytes # (Auto) 1.4, Lymphocytes (%) (Auto ) 18, Magnesium Level 1.5L, Mean Corpuscular Hemoglobin 30, Mean Corpuscular Hemoglobin Concent 32, Mean Corpuscular Volume 95, Mean Platelet Volume 9.6, Monocytes # (Auto) 0.7, Monocytes (%) (Auto) 8, Neutrophils # (Auto) 5.9, Neutrophils (%) (Auto) 74, Phosphorus Level 4.7, Platelet Count 75L, Potassium Level 3.4L, Red Blood Count 3.05L, Red Cell Distribution Width 16.7H, Sodium Level 143, White Blood Count 8.0 Microbiology 03/31/16 Blood Culture - Preliminary, Resulted No growth 04/02/16 Gram Stain - Final, Resulted 04/02/16 Sputum Culture - Preliminary, Resulted Usual/normal nayla isolated. Assessment/Plan Assessment/Plan Assess & Plan/Chief Complaint SEPSIS LEUKOCYTOSIS HYDROPNEUMOTHORAX POST-OBSTRUCTIVE PNEUMONIA SMALL CELL LUNG CANCER DYSPNEA HYPOTENSION TACHYCARDIA CHEST PAIN CHRONIC NAUSEA UNCONTROLLED CHEST WALL PAIN SEPSIS - IMPROVED- , CONTINUE WITH IV FLUIDS, TRIPLE ANTIBIOTIC THERAPY - ZOSYN , LEVAQUIN, VANCOMYCIN HYDROPNEUMOTHORAX -WITH PNEUMONIA - CONTINUE WITH TREATMENT OF POST- OBSTRUCTIVE PNEUMONIA. PT RECENTLY OFF OF STEROIDS - PT GIVEN STRESS DOSE OF STEROIDS TODAY. CONSULT PLACED TO DR. SAMUELS SMALL CELL LUNG CANCER - PT NOT DUE TO REPEAT CHEMOTHERAPY UNTIL 04/05/16, DR. CAT CONSULTED - SEE NOTES FROM DR. CAT - CHEMOTHERAPY WILL HAVE TO BE ON HOLD UNTIL HER PLATELETS IMPROVE. 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 PAIN IMPROVED WITH LIDOCAINE PATCH ON HER BACK AND ALSO WITH NEURONTIN LAST NIGHT -WILL CONTINUE WITH TORADOL, MONITOR SYMPTOMS CLOSELY. NEURONTIN INCREASED TO 200MG BID LAST NIGHT, WILL CHANGE TO TID. I HAVE DISCUSSED WITH THE PT AND HER DAUGHTERS - THEY ARE ALL AWARE OF THE GRAVITY OF THE ILLNESS, ROSIBEL CONTINUES TO WANT TO TRY CHEMOTHERAPY AT THIS TIME AND YET UNDERSTANDS HOW BAD HER CANCER IS WITH THE EXTENT OF THE ILLNESS CURRENTLY. Diagnosis/Problems: Clinical Quality Measures DVT/VTE Risk/Contraindication: Risk Factor Score Per Nursin RFS Level Per Nursing on Admit: 4+=Very High TYSON TALAMANTES MD Apr 04, 2016 10:12
[2016-04-04] MEDS: NS IV 1000 ML 1,000 ML IV SCH ×2 (10:19→17:38)
[2016-04-04] MEDS: POTASSIUM CL 10MEQ/50ML IVPB 50 ML IV SCH ×4 (10:54→14:35)
[2016-04-04 11:30] VITALS: BP 139/74
[2016-04-04] MEDS: LEVOFLOXACIN 750 MG/150 ML IV 150 ML IV SCH (12:09)
[2016-04-04] MEDS: IBUPROFEN 600 MG (MOTRIN) TAB PO PRN (12:48)
[2016-04-04 16:00] VITALS: BP 137/81
[2016-04-04 19:25] VITALS: BP 125/75
[2016-04-04] MEDS ORDERED: RT-ALBUTEROL SULF 2.5 MG/3 ML PRE-MIX VIAL INH ONE (20:30)
[2016-04-04] MEDS ORDERED: FUROSEMIDE 40 MG/4 ML INJ (LASIX) IVP ONE (20:30)
[2016-04-04] MEDS: ATORVASTATIN 40 MG (LIPITOR) TABLET PO SCH (21:38)
[2016-04-04] MEDS: ALPRAZolam 0.5 MG (XANAX) TAB PO SCH (21:38)
[2016-04-05] VITALS: BP 147/87
[2016-04-05] MEDS: HYDROcodone/APAP 10 MG/325 MG (LORTAB) TAB PO PRN ×5 (03:11→21:11)
[2016-04-05] MEDS: fentaNYL PCA 300 MCG/30 ML VIAL IV PRN ×2 (03:25→06:31)
[2016-04-05 04:00] VITALS: BP 127/74
[2016-04-05] MEDS: ONDANSETRON 4 MG/2 ML (SDV) Z0FRAN IVP PRN ×2 (04:32→17:05)
[2016-04-05] MEDS: PROMETHAZINE 25 MG (PHENERGAN) TAB PO PRN (05:08)
[2016-04-05] MEDS: KCL 10 MEQ TAB (MICRO K) PO SCH ×2 (06:05→17:06)
[2016-04-05] MEDS: PANTOPRAZOLE 20 MG TABLET (PROTONIX) PO SCH (06:05)
[2016-04-05] MEDS: LACTOBACILLUS Acidoph/Bulgar (LACTINEX/FLORANEX) TAB PO SCH ×3 (06:05→17:06)
[2016-04-05] MEDS: KETOROLAC 15 MG/ML VIAL IVP PRN ×3 (06:06→23:13)
[2016-04-05 06:09] LABS: BASOPHILS % (AUTO) 0 % (0-10); EOSINOPHILS # (AUTO) 0.1 10^3/uL (0.0-0.3); EOSINOPHILS % (AUTO) 1 % (0-10); LYMPHOCYTES # (AUTO) 1.4 X 10^3 (1.0-4.0); LYMPHOCYTES % (AUTO) 16 % (12-44); MEAN CORPUSCULAR HEMOGLOBIN 30 PG (25-34); MEAN CORPUSCULAR HGB CONC 31 G/DL (32-36); MEAN CORPUSCULAR VOLUME 95 FL (80-99); MEAN PLATELET VOLUME 9.8 FL (7.4-10.4); MONOCYTES # (AUTO) 0.7 X 10^3 (0.0-1.0); MONOCYTES % (AUTO) 7 % (0-12); NEUTROPHILS # (AUTO) 6.9 X 10^3 (1.8-7.8); NEUTROPHILS % (AUTO) 76 % (42-75); PLATELET COUNT 57 10^3/uL (130-400); RED BLOOD COUNT 3.28 10^6/uL (4.35-5.85); RED CELL DISTRIBUTION WIDTH 16.3 % (10.0-14.5)
[2016-04-05] MEDS: RT-ALBUTEROL SULF 2.5 MG/3 ML PRE-MIX VIAL INH SCH ×4 (06:23→19:16)
[2016-04-05 06:30] LABS: ANION GAP 11 MMOL/L (5-14); BLOOD UREA NITROGEN 11 MG/DL (7-18); BUN/CREATININE RATIO 17; CALCIUM 9.4 MG/DL (8.5-10.1); CARBON DIOXIDE 32 MMOL/L (21-32); CHLORIDE 96 MMOL/L (98-107); CREATININE SERUM 0.66 MG/DL (0.60-1.30); GFR ESTIMATED > 60; GLUCOSE 104 MG/DL (70-105); MAGNESIUM 1.9 MG/DL (1.8-2.4); PHOSPHORUS 4.5 MG/DL (2.3-4.7); POTASSIUM 3.6 MMOL/L (3.6-5.0); SODIUM 139 MMOL/L (135-145)
[2016-04-05] MEDS: RT-ADVAIR HFA 115/21 MCG PER PUFF IH SCH ×2 (06:31→19:16)
--- NOTE | 2016-04-05 07:56 | Pulmonary Progress Note ---
Subjective Subjective/Events-last exam SOB is stable pt is on same oxygen l/min as at home. Exam Exam Vital Signs Date Time Temp Pulse Resp B/P Pulse Ox O2 Delivery O2 Flow Rate FiO2 04/05/16 06:31 99 Nasal Cannula 5.00 04/05/16 06:31 16 04/05/16 06:24 97 Nasal Cannula 5.00 04/05/16 06:09 16 04/05/16 04:00 97.3 103 20 127/74 94 Nasal Cannula 5.00 04/05/16 03:25 20 04/05/16 00:00 97.4 107 20 147/87 97 Nasal Cannula 5.00 04/04/16 23:07 20 04/04/16 20:34 94 Nasal Cannula 5.00 04/04/16 20:10 Nasal Cannula 5.00 04/04/16 19:57 20 04/04/16 19:25 98.0 108 20 125/75 98 Nasal Cannula 5.00 04/04/16 19:10 Nasal Cannula 5.00 04/04/16 19:08 98 Nasal Cannula 5.00 04/04/16 18:47 16 04/04/16 16:00 97.2 103 16 137/81 96 Nasal Cannula 5.00 04/04/16 14:25 94 Nasal Cannula 5.00 04/04/16 13:45 18 04/04/16 11:30 98.9 115 18 139/74 96 Nasal Cannula 5.00 04/04/16 11:17 20 04/04/16 08:18 20 04/04/16 08:00 97 Nasal Cannula 5.00 I & O 04/05/16 07:00 Intake Total 1430 ml Output Total 3125 ml Balance -1695 ml General Appearance: No Apparent Distress WD/WN HEENT: Other Neck: Full Range of Motion Normal Inspection Non Tender Supple Respiratory: Chest Non Tender Decreased Breath Sounds (NO BREATH SOUNDS ON THE LEFT, CLEAR ON RIGHT) Cardiovascular: Regular Rate, Rhythm No Edema Capillary Refill: Less Than 3 Seconds Peripheral Pulses: 2+ Radial Pulses (L) Gastrointestinal: normal bowel sounds non tender soft no organomegaly no pulsatile mass Extremity: Normal Capillary Refill No Calf Tenderness Neurologic/Psychiatric: Alert Oriented x3 No Motor/Sensory Deficits Normal Mood/Affect Skin: Warm/Dry Lymphatic: No Adenopathy Results Lab Laboratory Tests 04/04/16 06:00 04/05/16 06:00 Assessment/Plan Assessment/Plan Sepsis - improving -lucas cultures pending -Improving with current Abx Endobronchial mass causing atelectasis and opacification of left lung - CT of lung - reviewed Lg Pleural Effusion - -pt has chemo on 04/05 -if sx of shortness of breath worsen - thoracentesis -- Therapeutic thoracentesis PRN only. No need for diagnostic thoracentesis at this time. PT wants to hold off on thoracentesis at this time. Anemia -improved s/p PRBC -Monitor Post obstructive pneumonia -zosyn, levaquin and vanco -oxygen at 3L -wears oxygen at night Tobacco Dependence Small cell lung cancer with mets Dyspnea - monitor Clinical Quality Measures DVT/VTE Risk/Contraindication: Risk Factor Score Per Nursin RFS Level Per Nursing on Admit: 4+=Very High BOBO SAMUELS DO Apr 05, 2016 07:56
[2016-04-05 08:12] VITALS: BP 125/78
[2016-04-05] MEDS: SENNA W/DOCUSATE (SENOKOT S) TABLET PO SCH ×3 (09:00→20:27)
[2016-04-05] MEDS: SCOPOLAMINE 1.5 MG (TRANSDERM-SCOP) PATCH TOP SCH (09:20)
[2016-04-05] MEDS: LIDOCAINE (LIDODERM) 5% PATCH TOP SCH (09:20)
[2016-04-05] MEDS: PROMETHAZINE/ CODEINE SYRUP 5 ML UDC PO PRN (09:21)
[2016-04-05] MEDS: ALPRAZolam 0.5 MG (XANAX) TAB PO SCH ×2 (09:21→20:27)
[2016-04-05] MEDS: GABAPENTIN 100 MG (NEURONTIN) CAP PO SCH ×3 (09:21→20:27)
[2016-04-05] MEDS: IBUPROFEN 600 MG (MOTRIN) TAB PO PRN (09:21)
[2016-04-05] MEDS: DICLOFENAC 1% GEL 100 GM (VOLTAREN) TUBE TP SCH ×4 (09:24→20:30)
[2016-04-05] MEDS: fentaNYL INJECTION 1,000 MCG in NS (IVPB) 80 ML INJ SCH (10:00)
--- NOTE | 2016-04-05 10:05 | Progress Note (SOAP) ---
Subjective Subjective/Events-last exam PT IS A 60 Y/O FEMALE WHO IS KNOWN TO ME FROM CLINIC AND PREVIOUS HOSPITALIZATION. THE PATIENT HAS POST-OBSTRUCTIVE PNEUMONIA, WITH NEW ONSET BACK PAIN AND COMPRESSION FRACTURE OF L4 - CONCERN FOR POSSIBLE METASTATIC DISEASE TO HER SPINE. PATIENT STATES THAT SHE IS FEELING FATIGUED, SHORT OF BREATH, AND HAS LEG PAIN ON THE LEFT SIDE. FAMILY WONDERING IF SHE WILL BE HAVING THE BONE MARROW BIOPSY TODAY. Review of Systems General: No Chills, Fatigue Malaise HEENT: No Head Aches Pulmonary: Dyspnea Cough Cardiovascular: No: Chest Pain Gastrointestinal: : NauseaNo: Abdominal Pain Genitourinary: Frequency Musculoskeletal: : back pain: leg pain (LEFT LEG) Neurological: : WeaknessNo: Confusion Objective Exam Vital Signs Date Time Temp Pulse Resp B/P Pulse Ox O2 Delivery O2 Flow Rate FiO2 04/05/16 08:12 98.5 115 18 125/78 96 Nasal Cannula 5.00 04/05/16 06:31 99 Nasal Cannula 5.00 04/05/16 06:31 16 04/05/16 06:24 97 Nasal Cannula 5.00 04/05/16 06:09 16 04/05/16 04:00 97.3 103 20 127/74 94 Nasal Cannula 5.00 04/05/16 03:25 20 04/05/16 00:00 97.4 107 20 147/87 97 Nasal Cannula 5.00 04/04/16 23:07 20 04/04/16 20:34 94 Nasal Cannula 5.00 04/04/16 20:10 Nasal Cannula 5.00 04/04/16 19:57 20 04/04/16 19:25 98.0 108 20 125/75 98 Nasal Cannula 5.00 04/04/16 19:10 Nasal Cannula 5.00 04/04/16 19:08 98 Nasal Cannula 5.00 04/04/16 18:47 16 04/04/16 16:00 97.2 103 16 137/81 96 Nasal Cannula 5.00 04/04/16 14:25 94 Nasal Cannula 5.00 04/04/16 13:45 18 04/04/16 11:30 98.9 115 18 139/74 96 Nasal Cannula 5.00 04/04/16 11:17 20 I & O 04/05/16 07:00 Intake Total 1430 ml Output Total 3125 ml Balance -1695 ml Capillary Refill : Less Than 3 Seconds General Appearance: No Apparent Distress WD/WN Neck: Supple Respiratory: Chest Non Tender Decreased Breath Sounds (NO BREATH SOUNDS ON LEFT, WHEEZING ON RIGHT SIDE UPPER AND LOWER LOBES) Cardiovascular: Regular Rate, Rhythm Gastrointestinal: normal bowel sounds non tender soft no organomegaly no pulsatile mass Extremity: Pedal Edema Neurologic/Psychiatric: Alert Oriented x3 Normal Mood/Affect Skin: Warm/Dry Results Lab Laboratory Tests 04/05/16 06:00: Anion Gap 11, BUN/Creatinine Ratio 17, Basophils # (Auto) 0.0, Basophils (%) ( Auto) 0, Blood Urea Nitrogen 11, Calcium Level 9.4, Carbon Dioxide Level 32, Chloride Level 96L, Creatinine 0.66, Eosinophils # (Auto) 0.1, Eosinophils (%) ( Auto) 1, Estimat Glomerular Filtration Rate > 60, Glucose Level 104, Hematocrit 31L, Hemoglobin 9.7L, Lymphocytes # (Auto) 1.4, Lymphocytes (%) (Auto) 16, Magnesium Level 1.9, Mean Corpuscular Hemoglobin 30, Mean Corpuscular Hemoglobin Concent 31L, Mean Corpuscular Volume 95, Mean Platelet Volume 9.8, Monocytes # (Auto) 0.7, Monocytes (%) (Auto) 7, Neutrophils # (Auto) 6.9, Neutrophils (%) (Auto) 76H, Phosphorus Level 4.5, Platelet Count 57L, Potassium Level 3.6, Red Blood Count 3.28L, Red Cell Distribution Width 16.3H, Sodium Level 139, White Blood Count 9.0 Microbiology 03/31/16 Blood Culture - Preliminary, Resulted No growth 04/02/16 Gram Stain - Final, Complete 04/02/16 Sputum Culture - Final, Complete Usual/normal nayla isolated. Assessment/Plan Assessment/Plan Assess & Plan/Chief Complaint SEPSIS LEUKOCYTOSIS HYDROPNEUMOTHORAX POST-OBSTRUCTIVE PNEUMONIA SMALL CELL LUNG CANCER DYSPNEA HYPOTENSION TACHYCARDIA CHEST PAIN CHRONIC NAUSEA UNCONTROLLED CHEST WALL PAIN SEPSIS - IMPROVED- , CONTINUE WITH IV FLUIDS, AND LEVAQUIN HYDROPNEUMOTHORAX -WITH PNEUMONIA - CONTINUE WITH TREATMENT OF POST- OBSTRUCTIVE PNEUMONIA. SMALL CELL LUNG CANCER - PT NOT DUE TO REPEAT CHEMOTHERAPY UNTIL 04/05/16, DR. CAT CONSULTED - SEE NOTES FROM DR. CAT - CHEMOTHERAPY WILL HAVE TO BE ON HOLD UNTIL HER PLATELETS IMPROVE. COUGH - CONTINUE WITH CURRENT COUGH MEDICATIONS POST-OBSTRUCTIVE PNEUMONIA -STARTED ON ANTIBIOTICS COPD DUE TO PERSISTENT TOBACCOISM - MONITOR SYMPTOMS UNCONTROLLED PAIN - INCREASED DOSE OF HYDROCODONE FROM 7.5MG TO 10MG- PT ON AUTO PORTER PUMP OF FENTANYL DUE TO HER UNCONTROLLED PAIN - WILL MONITOR SYMPTOMS CLOSELY - CONTINUE WITH AUTO PORTER, TORADOL, NEURONTIN CHRONIC NAUSEA - RESTARTED ZOFRAN, SCOPOLAMINE PATCH, PROMETHAZINE ANEMIA -POST TRANSFUSION - STABLE THROMBOCYTOPENIA - WORSENING SLIGHTLY - STOPPED LOVENOX AT THIS TIME DUE TO SERIALLY DECREASED PLTS AND HGB SEVERE BACK PAIN WITH LEG WEAKNESS - CT OF SPINE SHOWED A COMPRESSION FRACTURE AT L4 - WILL ORDER AN MRI OF THE LUMBAR SPINE TODAY. PAIN IMPROVED WITH LIDOCAINE PATCH ON HER BACK AND ALSO WITH NEURONTIN CONTINUE WITH TORADOL, MONITOR SYMPTOMS CLOSELY. I HAVE DISCUSSED WITH THE PT AND HER DAUGHTERS - THEY ARE ALL AWARE OF THE GRAVITY OF THE ILLNESS, ROSIBEL CONTINUES TO WANT TO TRY CHEMOTHERAPY AT THIS TIME AND YET UNDERSTANDS HOW BAD HER CANCER IS WITH THE EXTENT OF THE ILLNESS CURRENTLY. Diagnosis/Problems: Clinical Quality Measures DVT/VTE Risk/Contraindication: Risk Factor Score Per Nursin RFS Level Per Nursing on Admit: 4+=Very High TYSON TALAMANTES MD Apr 05, 2016 10:05
[2016-04-05] MEDS ORDERED: FUROSEMIDE 40 MG/4 ML INJ (LASIX) IVP NR (10:15)
[2016-04-05] MEDS ORDERED: GADOBUTROL 7.5 MMOL/7.5 ML (GADAVIST) VIAL IV ONE (11:30)
[2016-04-05] MEDS ORDERED: RT-ALBUTEROL SULF 2.5 MG/3 ML PRE-MIX VIAL INH PRN (12:00)
[2016-04-05] MEDS: LEVOFLOXACIN 750 MG/150 ML IV 150 ML IV SCH (12:20)
[2016-04-05 12:51] VITALS: BP 126/62
--- NOTE | 2016-04-05 13:40 | Diagnostic Imaging Report ---
PROCEDURE: MRI lumbar spine with and without contrast. TECHNIQUE: Multiplanar, multisequence MRI of the lumbar spine was performed with and without contrast. INDICATION: History of metastatic lung cancer. FINDINGS: There is diffuse abnormal marrow signal in the vertebral bodies with patchy enhancement seen on postcontrast images suggestive of metastatic disease. There is a minimal compression fracture of L4 vertebral body with a central area of abnormal enhancement in the marrow compatible with tumor. There is also a mild compression fracture with underlying abnormal signal in the marrow involving T11 vertebral body. T10 vertebral body is not well visualized. There is perhaps minimal depression in the upper endplate of T12 vertebral body. The posterior spinal line demonstrates normal alignment. The discs demonstrate desiccation at multiple levels with moderate disc height loss at L5/S1. The cauda equina and conus medullaris appear grossly unremarkable. No abnormal enhancement is identified. At T11/12, there is mild disc bulge with no significant spinal canal stenosis. No foraminal narrowing. T12/L1: No spinal canal stenosis or foraminal narrowing. L1/2: No significant disc herniation. No spinal canal stenosis. There is mild facet joint hypertrophy with no foraminal stenosis. L2/3: No disc herniation. There is elor-oj-kxvalsaa facet joint hypertrophy. No spinal canal or foraminal stenosis. L3/4: There is moderate facet joint hypertrophy and diffuse disc bulge with no significant central canal stenosis. There is minimal blunting of the lateral recesses bilaterally. No foraminal stenosis of significance. L4/5: There is a minimal disc bulge and moderate facet arthropathy with no central canal stenosis. There is yfia-ml-lkcoiovw stenosis of the lateral recesses bilaterally abutting the descending L5 nerve roots. The foramina demonstrate no significant stenosis. L5/S1: There is a diffuse disc bulge and moderate facet arthropathy with no significant spinal canal stenosis centrally. There is mild narrowing of the lateral recesses bilaterally abutting the S1 nerve roots. The foramina demonstrate mild stenosis on the left and afum-vs-vqfqotux stenosis on the right. IMPRESSION: 1. There is diffuse marrow signal abnormality with patchy multiple foci of abnormal enhancement within the vertebral bodies in the visualized lower thoracic spine and lumbar spine vertebrae compatible with diffuse metastatic disease. The diffuse signal abnormality could also in part be secondary to chemotherapy. 2. There is mild compression fracture of L4 and T11 and minimally at T12 vertebral bodies which are essentially pathologic fractures. 3.. There are degenerative facet and disc changes in the lower lumbar spine associated with vrdc-oz-tmldewet neural foraminal narrowing at L5/S1 and vemx-nq-dihuvcxd stenosis of the lateral recess at L4/5 and L5/S1 bilaterally. No significant central canal stenosis at any level. The findings were discussed with Dr. Salcedo by Dr. Mott at the time of dictation. Dictated by: Dictated on workstation # [id number]
[2016-04-05 16:22] VITALS: BP 134/63
[2016-04-05] MEDS: FUROSEMIDE 40 MG/4 ML INJ (LASIX) IVP SCH (17:05)
--- NOTE | 2016-04-05 17:34 | Progress Note (SOAP) ---
Subjective Subjective/Events-last exam Wants to proceed with bone marrow and with chemotherapy; She is aware of MRI results showing metastatic bony disease and pathologic fractures. Objective Exam Vital Signs Date Time Temp Pulse Resp B/P Pulse Ox O2 Delivery O2 Flow Rate FiO2 04/05/16 16:22 97.2 112 18 134/63 96 Nasal Cannula 4.00 04/05/16 13:21 95 Nasal Cannula 5.00 04/05/16 12:51 97.3 119 20 126/62 93 Nasal Cannula 5.00 04/05/16 10:12 96 Nasal Cannula 5.00 04/05/16 08:12 98.5 115 18 125/78 96 Nasal Cannula 5.00 04/05/16 06:31 99 Nasal Cannula 5.00 04/05/16 06:31 16 04/05/16 06:24 97 Nasal Cannula 5.00 04/05/16 06:09 16 04/05/16 04:00 97.3 103 20 127/74 94 Nasal Cannula 5.00 04/05/16 03:25 20 04/05/16 00:00 97.4 107 20 147/87 97 Nasal Cannula 5.00 04/04/16 23:07 20 04/04/16 20:34 94 Nasal Cannula 5.00 04/04/16 20:10 Nasal Cannula 5.00 04/04/16 19:57 20 04/04/16 19:25 98.0 108 20 125/75 98 Nasal Cannula 5.00 04/04/16 19:10 Nasal Cannula 5.00 04/04/16 19:08 98 Nasal Cannula 5.00 04/04/16 18:47 16 I & O 04/05/16 07:00 Intake Total 1430 ml Output Total 3125 ml Balance -1695 ml Capillary Refill : Less Than 3 Seconds General Appearance: No Apparent Distress Neck: Non Tender Supple Respiratory: Crackles Decreased Breath Sounds Cardiovascular: Regular Rate, Rhythm Gastrointestinal: normal bowel sounds non tender soft no organomegaly Neurologic/Psychiatric: Alert Oriented x3 No Motor/Sensory Deficits Normal Mood/Affect Results Lab Laboratory Tests 04/05/16 06:00: Anion Gap 11, BUN/Creatinine Ratio 17, Basophils # (Auto) 0.0, Basophils (%) ( Auto) 0, Blood Urea Nitrogen 11, Calcium Level 9.4, Carbon Dioxide Level 32, Chloride Level 96L, Creatinine 0.66, Eosinophils # (Auto) 0.1, Eosinophils (%) ( Auto) 1, Estimat Glomerular Filtration Rate > 60, Glucose Level 104, Hematocrit 31L, Hemoglobin 9.7L, Lymphocytes # (Auto) 1.4, Lymphocytes (%) (Auto) 16, Magnesium Level 1.9, Mean Corpuscular Hemoglobin 30, Mean Corpuscular Hemoglobin Concent 31L, Mean Corpuscular Volume 95, Mean Platelet Volume 9.8, Monocytes # (Auto) 0.7, Monocytes (%) (Auto) 7, Neutrophils # (Auto) 6.9, Neutrophils (%) (Auto) 76H, Phosphorus Level 4.5, Platelet Count 57L, Potassium Level 3.6, Red Blood Count 3.28L, Red Cell Distribution Width 16.3H, Sodium Level 139, White Blood Count 9.0 Microbiology 03/31/16 Blood Culture - Final, Complete No growth 04/02/16 Gram Stain - Final, Complete 04/02/16 Sputum Culture - Final, Complete Usual/normal nayla isolated. Assessment/Plan Assessment/Plan Assess & Plan/Chief Complaint 1. 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 a. Status post one cycle of cisplatin and Etoposide administered on through . b. Patient is due for Cycle 2 on 04/05/16; c. If no shrinkage or masses noted with this cycle of chemotherapy then patient will be deemed refractory to first-line cisplatin and etoposide and regimen will be changed to Topotecan; 2. Worsening thrombocytopenia-cannot exclude drug effect versus bone marrow infiltration; Patient is ineligible for chemotherapy with platelet count below 100,000 without documented bone marrow infiltration. Bone marrow aspiration and biopsy is planned for 04/06/15. 3. Large left malignant pleural effusion--will monitor and intervene as indicated; 4. Fever/ Postobstructive pneumonia--on triple antibiotics: IV levofloxacin only; Zosyn, and vancomycin were discontinued. 5. Symptomatic anemia-improved since transfusion; 6. Susan is poor because of patient's extensive disease , above pneumonia, poor reserves. Diagnosis/Problems: Clinical Quality Measures DVT/VTE Risk/Contraindication: Risk Factor Score Per Nursin RFS Level Per Nursing on Admit: 4+=Very High DANIA CAT MD Apr 05, 2016 17:33 DANIA CAT MD Apr 05, 2016 17:33
[2016-04-05 20:00] VITALS: BP 126/69
[2016-04-05] MEDS: ATORVASTATIN 40 MG (LIPITOR) TABLET PO SCH (20:27)
[2016-04-06 00:45] VITALS: BP 126/69
[2016-04-06] MEDS: fentaNYL INJECTION 1,000 MCG in NS (IVPB) 80 ML INJ SCH (03:21)
[2016-04-06] MEDS: HYDROcodone/APAP 10 MG/325 MG (LORTAB) TAB PO PRN ×2 (03:21→08:10)
[2016-04-06 04:45] VITALS: BP 114/68
[2016-04-06] MEDS: LACTOBACILLUS Acidoph/Bulgar (LACTINEX/FLORANEX) TAB PO SCH (06:24)
[2016-04-06] MEDS: PANTOPRAZOLE 20 MG TABLET (PROTONIX) PO SCH (06:24)
[2016-04-06] MEDS: KCL 10 MEQ TAB (MICRO K) PO SCH (06:24)
[2016-04-06] MEDS: FUROSEMIDE 40 MG/4 ML INJ (LASIX) IVP SCH (06:24)
[2016-04-06] MEDS: NS IV 1000 ML 1,000 ML IV SCH (06:24)
[2016-04-06 06:37] LABS: BASOPHILS % (AUTO) 1 % (0-10); EOSINOPHILS # (AUTO) 0.1 10^3/uL (0.0-0.3); EOSINOPHILS % (AUTO) 1 % (0-10); LYMPHOCYTES # (AUTO) 1.8 X 10^3 (1.0-4.0); LYMPHOCYTES % (AUTO) 23 % (12-44); MEAN CORPUSCULAR HEMOGLOBIN 30 PG (25-34); MEAN CORPUSCULAR HGB CONC 31 G/DL (32-36); MEAN CORPUSCULAR VOLUME 97 FL (80-99); MEAN PLATELET VOLUME 10.5 FL (7.4-10.4); MONOCYTES # (AUTO) 0.6 X 10^3 (0.0-1.0); MONOCYTES % (AUTO) 7 % (0-12); NEUTROPHILS # (AUTO) 5.5 X 10^3 (1.8-7.8); NEUTROPHILS % (AUTO) 69 % (42-75); PLATELET COUNT 46 10^3/uL (130-400); RED BLOOD COUNT 3.13 10^6/uL (4.35-5.85); RED CELL DISTRIBUTION WIDTH 16.1 % (10.0-14.5)
[2016-04-06 06:51] LABS: ANION GAP 10 MMOL/L (5-14); BLOOD UREA NITROGEN 16 MG/DL (7-18); BUN/CREATININE RATIO 23; CALCIUM 9.9 MG/DL (8.5-10.1); CARBON DIOXIDE 34 MMOL/L (21-32); CHLORIDE 97 MMOL/L (98-107); CREATININE SERUM 0.69 MG/DL (0.60-1.30); GFR ESTIMATED > 60; GLUCOSE 101 MG/DL (70-105); MAGNESIUM 1.7 MG/DL (1.8-2.4); POTASSIUM 4.5 MMOL/L (3.6-5.0); SODIUM 141 MMOL/L (135-145)
[2016-04-06] MEDS: RT-ALBUTEROL SULF 2.5 MG/3 ML PRE-MIX VIAL INH SCH (07:42)
[2016-04-06] MEDS: RT-ADVAIR HFA 115/21 MCG PER PUFF IH SCH (07:42)
--- NOTE | 2016-04-06 07:49 | Pulmonary Progress Note ---
Subjective Subjective/Events-last exam No complications noted. Exam Exam Vital Signs Date Time Temp Pulse Resp B/P Pulse Ox O2 Delivery O2 Flow Rate FiO2 04/06/16 06:00 20 04/06/16 04:45 97.9 108 20 114/68 98 Nasal Cannula 4.00 04/06/16 01:08 97 Nasal Cannula 5.00 04/06/16 00:45 97.0 108 20 126/69 98 Nasal Cannula 4.00 04/05/16 20:27 95 Nasal Cannula 5.00 04/05/16 20:20 94 Nasal Cannula 5.00 04/05/16 20:00 98.2 125 18 126/69 94 Nasal Cannula 5.00 04/05/16 19:23 Nasal Cannula 5.00 04/05/16 19:17 96 Nasal Cannula 5.00 04/05/16 18:00 16 04/05/16 16:22 97.2 112 18 134/63 96 Nasal Cannula 4.00 04/05/16 13:21 95 Nasal Cannula 5.00 04/05/16 12:51 97.3 119 20 126/62 93 Nasal Cannula 5.00 04/05/16 10:12 96 Nasal Cannula 5.00 04/05/16 10:00 97.2 04/05/16 08:12 98.5 115 18 125/78 96 Nasal Cannula 5.00 04/05/16 08:00 96 Nasal Cannula 4.00 I & O 04/06/16 07:00 Intake Total 1967 ml Output Total 750 ml Balance 1217 ml General Appearance: No Apparent Distress HEENT: Other Neck: Non Tender Supple Respiratory: Crackles Decreased Breath Sounds Cardiovascular: Regular Rate, Rhythm Capillary Refill: Less Than 3 Seconds Peripheral Pulses: 2+ Radial Pulses (L) Gastrointestinal: normal bowel sounds non tender soft no organomegaly Extremity: Pedal Edema Neurologic/Psychiatric: Alert Oriented x3 No Motor/Sensory Deficits Normal Mood/Affect Skin: Warm/Dry Lymphatic: No Adenopathy Results Lab Laboratory Tests 04/05/16 06:00 04/06/16 06:20 Assessment/Plan Assessment/Plan Sepsis Post obstructive pneumonia - improving -abx Endobronchial mass causing atelectasis and opacification of left lung - CT of lung - reviewed Lg Pleural Effusion - -if sx of shortness of breath worsen - thoracentesis -- Therapeutic thoracentesis PRN only. No need for diagnostic thoracentesis at this time. PT wants to hold off on thoracentesis at this time. Anemia -improved s/p PRBC -Monitor Tobacco Dependence Small cell lung cancer with mets Dyspnea - monitor Overall prognosis is poor. Clinical Quality Measures DVT/VTE Risk/Contraindication: Risk Factor Score Per Nursin RFS Level Per Nursing on Admit: 4+=Very High BOBO SAMUELS DO Apr 06, 2016 07:48
[2016-04-06] MEDS: ALPRAZolam 0.5 MG (XANAX) TAB PO SCH (08:08)
[2016-04-06] MEDS: ONDANSETRON 4 MG/2 ML (SDV) Z0FRAN IVP PRN (08:09)
[2016-04-06] MEDS: SENNA W/DOCUSATE (SENOKOT S) TABLET PO SCH ×2 (08:09→08:11)
[2016-04-06] MEDS: GABAPENTIN 100 MG (NEURONTIN) CAP PO SCH (08:10)
[2016-04-06] MEDS: LIDOCAINE (LIDODERM) 5% PATCH TOP SCH (08:10)
[2016-04-06] MEDS: DICLOFENAC 1% GEL 100 GM (VOLTAREN) TUBE TP SCH (08:11)
--- NOTE | 2016-04-06 08:40 | Discharge Summary ---
Diagnosis/Chief Complaint Date of Admission Mar 31, 2016 at 12:38 Date of Discharge Admission Diagnosis Admission Diagnosis SEPSIS LEUKOCYTOSIS HYDROPNEUMOTHORAX POST-OBSTRUCTIVE PNEUMONIA SMALL CELL LUNG CANCER DYSPNEA HYPOTENSION TACHYCARDIA CHEST PAIN NAUSEA Discharge Diagnosis SEPSIS LEUKOCYTOSIS HYDROPNEUMOTHORAX POST-OBSTRUCTIVE PNEUMONIA SMALL CELL LUNG CANCER DYSPNEA HYPOTENSION TACHYCARDIA CHEST PAIN NAUSEA Reason Hospital Visit PT IS A 60 Y/O FEMALE WHO IS KNOWN TO ME FROM CLINIC AND PREVIOUS HOSPITALIZATIONS. THE PATIENT HAS A POST-OBSTRUCTIVE LESION IN HER LEFT LUNG AND HAS HAD ONE ROUND OF CHEMOTHERAPY X 1 ROUND IN FEBRUARY PRIOR TO DISCHARGE AND SECOND ROUND OF CHEMOTHERAPY WAS DUE TO BE GIVEN 04/05/16. THE PATIENT WAS SEEN IN THE OFFICE YESTERDAY AND WAS FEELING GOOD AT THAT TIME. SHE REPORTS THAT SHE HAS BEEN INTERMITTENTLY WALKING AROUND HER HOUSE WITHOUT HER OXYGEN ON, AND HAS FALLEN OUT OF HER BED. Discharge Summary Consultations DR. CAT Discharge Physical Examination Allergies: Coded Allergies: NKANo Known Allergies (Verified Allergy, Unknown, 03/12/16) Vitals & I&Os General Appearance: Alert, Cooperative Respiratory: Other (NO AIR MOVEMENT ON LEFT) Cardiovascular: Other (TACHYCARDIC) Abdominal: Normal Bowel Sounds Extremities: No Cyanosis Psych/Mental Status: Mental Status NL Hospital Course SEPSIS LEUKOCYTOSIS HYDROPNEUMOTHORAX POST-OBSTRUCTIVE PNEUMONIA SMALL CELL LUNG CANCER DYSPNEA HYPOTENSION TACHYCARDIA CHEST PAIN CHRONIC NAUSEA UNCONTROLLED CHEST WALL PAIN SEPSIS - IMPROVED- , CONTINUE WITH IV FLUIDS, AND LEVAQUIN HYDROPNEUMOTHORAX -WITH PNEUMONIA - CONTINUE WITH TREATMENT OF POST- OBSTRUCTIVE PNEUMONIA. SMALL CELL LUNG CANCER - PT NOT DUE TO REPEAT CHEMOTHERAPY UNTIL 04/05/16, DR. CAT CONSULTED - SEE NOTES FROM DR. CAT - CHEMOTHERAPY WILL HAVE TO BE ON HOLD UNTIL HER PLATELETS IMPROVE. COUGH - CONTINUE WITH CURRENT COUGH MEDICATIONS POST-OBSTRUCTIVE PNEUMONIA -STARTED ON ANTIBIOTICS COPD DUE TO PERSISTENT TOBACCOISM - MONITOR SYMPTOMS UNCONTROLLED PAIN - INCREASED DOSE OF HYDROCODONE FROM 7.5MG TO 10MG- PT ON NEWS ANALYST PUMP OF FENTANYL DUE TO HER UNCONTROLLED PAIN - WILL MONITOR SYMPTOMS CLOSELY - CONTINUE WITH NEWS ANALYST, TORADOL, NEURONTIN CHRONIC NAUSEA - RESTARTED ZOFRAN, SCOPOLAMINE PATCH, PROMETHAZINE ANEMIA -POST TRANSFUSION - STABLE THROMBOCYTOPENIA - WORSENING SLIGHTLY - STOPPED LOVENOX AT THIS TIME DUE TO SERIALLY DECREASED PLTS AND HGB SEVERE BACK PAIN WITH LEG WEAKNESS - CT OF SPINE SHOWED A COMPRESSION FRACTURE AT L4 - WILL ORDER AN MRI OF THE LUMBAR SPINE TODAY. PAIN IMPROVED WITH LIDOCAINE PATCH ON HER BACK AND ALSO WITH NEURONTIN CONTINUE WITH TORADOL, MONITOR SYMPTOMS CLOSELY. I HAVE DISCUSSED WITH THE PT AND HER DAUGHTERS - THEY ARE ALL AWARE OF THE GRAVITY OF THE ILLNESS, ROSIBEL CONTINUES TO WANT TO TRY CHEMOTHERAPY AT THIS TIME AND YET UNDERSTANDS HOW BAD HER CANCER IS WITH THE EXTENT OF THE ILLNESS CURRENTLY. PT PLACED ON SWING BED SHE CANNOT SAFELY BE DISCHARGED TO HOME AND FAMILY WANTS TO TRY THE CHEMO IN THE HOSPITAL Pending Labs Discharge Condition at discharge DECLINING Instructions to patient/family Please see electonic discharge instructions given to patient. Discharge Medications Reviewed and agree with Discharge Medication list on patient's Discharge Instruction sheet Clinical Quality Measures DVT/VTE Risk/Contraindication: Risk Factor Score Per Nursin RFS Level Per Nursing on Admit: 4+=Very High TYSON TALAMANTES MD Apr 06, 2016 08:40
[2016-04-06] MEDS ORDERED: ONDANSETRON 4 MG/2 ML (SDV) Z0FRAN ONE (08:56)
[2016-04-06 10:02] LABS: RETICULOCYTE % 1.29 % (0.50-2.40)
[2016-04-06 10:31] LABS: ANISOCYTOSIS SLIGHT; BAND NEUTROPHILS 10 %; BASOPHILS % (MANUAL) 0 %; EOSINOPHILS % (MANUAL) 0 %; LYMPHOCYTES % (MANUAL) 22 %; MYELOCYTES % 2 %; NEUTROPHILS % (MANUAL) 54 %; REACTIVE LYMPHOCYTES 1 %
== END 2016-04-06 08:45 | disposition swing bed (61) | DRG 871 ==
LOC: EDUNIT# 09:56 → ER 09:58 → ICU 12:38 → 4TH 04-01 09:50
PROVIDERS: ADMIT Family Medicine; ATTEND Family Medicine
DX: A41.9 Sepsis, unspecified organism (principal); J44.0 Chronic obstructive pulmonary disease with (acute) lower respiratory infection; J18.9 Pneumonia, unspecified organism; J94.2 Hemothorax; C34.92 Malignant neoplasm of unspecified part of left bronchus or lung; J91.0 Malignant pleural effusion; C78.7 Secondary malignant neoplasm of liver and intrahepatic bile duct; J98.11 Atelectasis; Z66 Do not resuscitate; C79.51 Secondary malignant neoplasm of bone; M84.58XA Pathological fracture in neoplastic disease, other specified site, initial encounter for fracture; D64.9 Anemia, unspecified; I10 Essential (primary) hypertension; K21.9 Gastro-esophageal reflux disease without esophagitis; R11.0 Nausea; Z86.73 Personal history of transient ischemic attack (TIA), and cerebral infarction without residual deficits; Z85.840 Personal history of malignant neoplasm of eye; Z87.891 Personal history of nicotine dependence
CPT/HCPCS: 36415; 71010; 71260; 72125; 72128; 72131; 72158; 80048; 80053; 80076; 80202; 81000; 82962; 83605; 83735; 84100; 85007; 85025; 85027; 85045; 85610; 85730; 86850; 86900; 86901; 86920; 87040; 87070; 87205; 94640; 94664; 94760; 96365; 96375

== ENCOUNTER 2016-04-06 09:16 | Inpatient (IN) | payer BC ==
[~2016-04-06] VITALS: Ht 154.9 cm; Wt 78.6 kg
[~2016-04-06 09:16] MED LIST changes: +ALPR0.5T PO; +DICL100G18 TP; +POLY17PO6 PO; +SCOP1PAT TD; +SENN-1 PO
[2016-04-06] MEDS ORDERED: METOCLOPRAMIDE INJ 10 MG/2 ML (REGLAN) IV PRN (09:30)
[2016-04-06] MEDS ORDERED: CATHETER FLUSH 10 ML SYR IV PRN (09:30)
[2016-04-06] MEDS ORDERED: PROMETHAZINE 25 MG (PHENERGAN) TAB PO PRN (09:30)
[2016-04-06] MEDS ORDERED: diphenhydrAMINE 50 MG/ML INJ (BENADRYL) IV PRN (09:30)
[2016-04-06] MEDS ORDERED: POLYETHYLENE GLYCOL 17 GM (MIRALAX) PACK PO PRN (09:30)
[2016-04-06] MEDS ORDERED: NS IV 500 ML 500 ML IV SCH (09:30)
[2016-04-06] MEDS ORDERED: NALOXONE 0.4 MG/ML 1 ML (NARCAN) VIAL IV PRN (09:30)
--- OUTSIDE RECORDS SUMMARY | 2016-04-06 09:53 | XMS REPORT | Continuity of Care Document ---
Author Author [facility] Organization [facility] Address Unknown Phone Unavailable Care Team Providers Care Loading Unit Operator Powder Charging Name Role Phone TYSON TALAMANTES MD PCP Insurance Providers Payer Name Policy Number Subscriber Name Relationship Self Pay Verenice Ibarra 18 Self / Same As Patient Advance Directives Directive Response Recorded Date/Time Advance Directives No 02/22/16 12:51pm Health Care Power of Dowel Setting Machine Operator No 02/22/16 12:51pm Organ Donor No 02/22/16 [...] Past Home Medications Medication Directions Ordered Status Aldlujub-Rhpwukq-Rlzs 149-Hyal 1 Each Tablet, 1 Each Oral [...] Follow-up Orders Chest Pa/Lat (2 View Referrals [facility] (Unspecified) - 03/02/16 Reason(s) for Referral: Pneumonia [...] - 99.5) 02/25/2016 11:20am Temperature (Calculated Celsius) 37.06717 degrees C (36.4 - 37.5) 02/25/2016 8:00am [...] 1.00 inches 02/22/2016 12:59pm Height (Calculated Centimeters) 154.424440 cm 02/22/2016 12:59pm Weight (Pounds) 145 pounds 02/22/2016 12:59pm Weight (Ounces) 0.0 oz 02/22/2016 12:59pm Weight (Calculated Grams) 83764.89 gm 02/22/2016 12:59pm Weight (Calculated Kilograms) 65.249734 kilograms 02/22/2016 12:59pm Calculated BMI 27.4 02/22/2016 [...] Discharge/Depart Date Attending Provider Discharged Inpatient [facility] 02/22/16 10:47am 11:20am MELVIN MORGAN DO Departed Emergency Room [facility] 02/10/16 3:34pm 02/09 4:48pm [facility] Recent Diagnosis Sinusitis Urinary tract infection Volume depletion
[2016-04-06] MEDS ORDERED: ALPRAZolam 0.5 MG (XANAX) TAB PO PRN (10:00)
[2016-04-06] MEDS: RT-ALBUTEROL SULF 2.5 MG/3 ML PRE-MIX VIAL INH SCH ×3 (10:40→18:38)
[2016-04-06] MEDS ORDERED: KETOROLAC 30 MG/ML VIAL IVP NR (11:00)
[2016-04-06] MEDS ORDERED: fentaNYL INJECTION 100 MCG/2 ML AMP IVP PRN (11:00)
[2016-04-06] MEDS ORDERED: fentaNYL INJECTION 100 MCG/2 ML AMP IVP ONE (11:00)
[2016-04-06] MEDS: LACTOBACILLUS Acidoph/Bulgar (LACTINEX/FLORANEX) TAB PO SCH ×2 (11:00→17:16)
[2016-04-06] MEDS: PROMETHAZINE INJ 25 MG/ML (PHENERGAN) AMP IVP PRN (11:03)
[2016-04-06] MEDS: LEVOFLOXACIN 750 MG/150 ML IV 150 ML IV SCH (11:08)
[2016-04-06 12:00] VITALS: BP 130/85
--- NOTE | 2016-04-06 12:32 | Procedure Note ---
Procedure Note Vital Signs Vital Signs Date Time Temp Pulse Resp B/P Pulse Ox O2 Delivery O2 Flow Rate FiO2 04/06/16 10:39 92 Nasal Cannula 5.00 Procedure Note PROCEDURE: Bone marrow aspirate and biopsy INDICATIONS: Evaluation of worsening thrombocytopenia The procedure, indications and complications were explained to the patient and understanding was voiced. An informed consent was then obtained and placed on the chart. Patient was placed in the lateral decubitus position and the right posterior superior iliac spine area was prepped and draped. Local anesthesia was administered using 2% Xylocaine. A sternal aspirate needle was passed in and it was a dry tap. The sternal aspirate needle was removed and a Jamshidi needle was passed in and a biopsy was obtained without complications. The patient tolerated the procedure well. Adequate hemostasis was obtained and the specimen was sent to pathology for appropriate testing, including cytogenetics and flow cytometry if indicated. An outpatient follow up appointment will be scheduled to review the results. Copy Copies To 1: TYSON TALAMANTES MD Copies To 2: DANIA CAT MD, MARY K MD Apr 06, 2016 12:32
--- NOTE | 2016-04-06 12:40 | Progress Note (SOAP) ---
Subjective Subjective/Events-last exam Patient reports nausea and fatigue Objective Exam Vital Signs Date Time Temp Pulse Resp B/P Pulse Ox O2 Delivery O2 Flow Rate FiO2 04/06/16 10:39 92 Nasal Cannula 5.00 Capillary Refill : General Appearance: Chronically ill Obese Neck: Non Tender Supple Respiratory: Decreased Breath Sounds Wheezing Cardiovascular: Tachycardia Extremity: Swelling Neurologic/Psychiatric: Alert Oriented x3 Assessment/Plan Assessment/Plan Assess & Plan/Chief Complaint 1. 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 a. Status post one cycle of cisplatin and Etoposide administered on through . b. Patient was due for Cycle 2 on 04/05/16 but was ineligible for chemo with platelet count of 55,000 which has dropped further to 46,000 today. c. If no shrinkage or masses noted with this cycle of chemotherapy then patient will be deemed refractory to first-line cisplatin and etoposide and regimen will be changed to Topotecan; 2. Worsening thrombocytopenia-cannot exclude drug effect versus bone marrow infiltration; Patient is ineligible for chemotherapy with platelet count below 100,000 without documented bone marrow infiltration. Bone marrow aspiration and biopsy done on 04/06/15. Results are pending. 3. Large left malignant pleural effusion--will monitor; Pulmonary is following. 4. Fever/ Postobstructive pneumonia--on IV levofloxacin. 5. Symptomatic anemia-improved since transfusion; 6. Patient reports headache and worsening nausea-- we will schedule for MRI of the brain with contrast today. Diagnosis/Problems: DANIA CAT MD Apr 06, 2016 12:40 DANIA CAT MD Apr 06, 2016 12:40
[2016-04-06] MEDS ORDERED: fentaNYL INJECTION 100 MCG/2 ML AMP ONE (13:27)
[2016-04-06] MEDS: HYDROcodone/APAP 10 MG/325 MG (LORTAB) TAB PO PRN ×2 (13:40→20:55)
[2016-04-06] MEDS ORDERED: GADOBUTROL 7.5 MMOL/7.5 ML (GADAVIST) VIAL IV ONE (14:30)
--- NOTE | 2016-04-06 14:57 | Diagnostic Imaging Report ---
PROCEDURE: MR imaging of the brain with and without contrast. TECHNIQUE: Multiplanar, multisequence MR imaging of the brain was performed with and without contrast. INDICATION: Headache. History of metastatic lung cancer. 7 mL of Gadovist is administered intravenously. FINDINGS: There is no diffusion restriction to suggest an acute infarct or other diffusion abnormality. The other sequences demonstrate variable degree of motion artifact which could obscure particularly subtle abnormality. Diagnostic evaluation for major abnormalities is reasonable. There is no enhancing mass in the brain and no evidence of significant demyelinating lesion or brain edema. There is normal size of the lateral ventricles. No extra-axial fluid collection or mass is identified. There are preserved central vascular flow-voids. The internal auditory canals and inner ear structures appear symmetric. There is susceptibility artifact in the area of the right orbit probably secondary to old injury and replacement of the globe with prosthesis. There is mucosal thickening in the ethmoidal air cells, maxillary sinuses, and in the mastoid air cells. Abnormal marrow signal in the clivus could be related to metastasis of chemotherapy effect. There is mild enhancement in the right frontal region of the skull involving a 0.7-cm size area that may relate to an early bone metastasis. IMPRESSION: No acute infarct or intracranial mass. Subcentimeter focal abnormal marrow signal in the right frontal region of the skull could relate to an early bone metastasis. Dictated by: Dictated on workstation # [id number]
[2016-04-06] MEDS: GABAPENTIN 100 MG (NEURONTIN) CAP PO SCH ×2 (15:11→17:16)
--- NOTE | 2016-04-06 15:32 | Occupational Therapy Eval ---
OT Evaluation-General/PLF Medical Diagnosis Admission Date Apr 06, 2016 at 09:16 Medical Diagnosis: pneumonia, small cell CA L lung Onset Date: Mar 31, 2016 Therapy Diagnosis Therapy Diagnosis: weakness, decreased activity tolerance, decreased functional mobility Height/Weight Height (Feet): 5 Height (Inches): 1.00 Weight (Pounds): 183 Weight (Ounces): 8.0 Precautions Precautions/Isolations: Standard Precautions Referral Physician: Denisse Referral Reason: Evaluation/Treatment Referral Comments "strengthen upper body" Medical History Pertinent Medical History: COPD, CVA (2004), GERD, HTN, Smoking (former) Additional Medical History Chronic SOB, cough. 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 Metastatic bone disease. had chemo a month ago and due for next round (unknown if she will start chemo tomorrow). New R leg pain may be from fracture on spine. Pt had occupational therapy at home prior to this hospitalization to check out bathroom and ADLs. Reviewed History: Yes Social History Current Living Status: Alone Pt reported family members have split up chores at home and are her caregivers. 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 Pt did not rate or describe pain Appearance Alert, cooperative Mental Status/Objective Attachments: IV, Oxygen Current Hand Dominance: Right Upper Extremity ROM Grossly WFL bilat Upper Extremity Strength Grossly 4/5 bilat Pt reported fatigue and losing strength while in bed ADL-Treatment ADL-Current Pt reported she has been taking herself to the bathroom (family brings IV), showering, dressing. She said she needed some help with her bath today and was embarrassed by this but was not specific. She may start chemo tomorrow and will probably feel ill for 3-4 day. She is concerned about being able to get get in- out of bed with decreased R leg pain Functional [place] Measure 0=Not Assessed/NA 4=Minimal Assistance 1=Total Assistance 5=Supervision or Setup 2=Maximal Assistance 6=Modified [place] 3=Moderate Assistance 7=Complete IndependenceIRFPAI Quality Coding Scale 6 Independent with activity with or without an assistive device 5 Patient requires set up or clean up by helper. Patient completes activity by themselves 4 Supervision or touching assist (CGA). [place] provide cues , steadying assist 3 The helper provides less than half the effort to complete the activity 2 The helper provides more than half the effort to complete the activity 1 Dependent. The helper does all the effort to complete an activity 7 Patient refused to complete or attempt activity 9 The patient did not perform the activity before the current illness or injury 88 Not attempted due to Medical conditions or safety concerns Education OT Patient Education: Energy conservation, Progress toward Goal/Update tx plan , Purpose of tx/functional activities, Rehab process Teaching Recipient: Patient Teaching Methods: Discussion Response to Teaching: Verbalize Understanding OT Shuffle Board Operator Goals Shuffle Board Operator Goals Time Frame: Apr 20, 2016 1. Pt will be able to verbalize three ways that she can conserve her energy for home. 2. Pt will be independent with home exercise program for UE strength as needed for ADLs 3. Pt will identify least restrictive and least painful method for getting in and out of bed 1=Demonstrate adherence to instructed precautions during ADL tasks. 2=Patient will verbalize/demonstrate understanding of assistive devices/ modifications for ADL. 3=Patient will improve strength/tolerance for activity to enable patient to perform ADL's. OT Education/Plan Problem List/Assessment Assessment: Decreased Activ Tolerance, Decreased UE Strength, Dependent Transfers, Impaired Bed Mobility Pt would benefit from skilled OT to increase her independence in getting in and out of bed, increase her activity tolerance and increase UE strength for ADLs and transfer, to allow her to return home safely and decrease caregiver burden Discharge Recommendations Plan/Recommendations: Continue POC Treatment Plan/Plan of Care Treatment,Training & Education: Yes Patient would benefit from OT for education, treatment and training to promote independence in ADL's, mobility, safety and/or upper extremity function for ADL' s. Plan of Care: Functional Mobility, UE Funct Exercise/Act, OTHER (energy conservation education) Treatment Duration: Apr 20, 2016 # of days/week 5 Visits Per Week: 5 Agreement: Yes Rehab Potential: Fair Time/GCodes Start Time: 15:05 Stop Time: 15:25 Total Time Billed (hr/min): 20 Billed Treatment Time visit, 20 minutes evaluation moderate KLUSENER,CHERRY OT Apr 06, 2016 15:32 CHERRY WARD OT Apr 06, 2016 15:32
[2016-04-06 16:00] VITALS: BP 124/69
[2016-04-06] MEDS: DICLOFENAC 1% GEL 100 GM (VOLTAREN) TUBE TP SCH ×3 (17:00→20:47)
[2016-04-06] MEDS: KCL 10 MEQ TAB (MICRO K) PO SCH (17:16)
[2016-04-06] MEDS: FUROSEMIDE 40 MG/4 ML INJ (LASIX) IVP SCH (17:16)
[2016-04-06] MEDS: NS IV 1000 ML 1,000 ML IV SCH (17:17)
[2016-04-06] MEDS: fentaNYL INJECTION 1,000 MCG in NS (IVPB) 80 ML INJ SCH (17:20)
[2016-04-06 18:00] VITALS: BP 124/69
[2016-04-06] MEDS: RT-ADVAIR HFA 115/21 MCG PER PUFF IH SCH (18:38)
[2016-04-06 20:15] VITALS: BP 117/76
[2016-04-06] MEDS: ALPRAZolam 0.5 MG (XANAX) TAB PO SCH (20:36)
[2016-04-06] MEDS: SENNA W/DOCUSATE (SENOKOT S) TABLET PO SCH (20:41)
[2016-04-06] MEDS: PROMETHAZINE/ CODEINE SYRUP 5 ML UDC PO PRN (20:41)
[2016-04-06] MEDS: LIDOCAINE PATCH REMOVAL TP SCH (20:47)
[2016-04-06] MEDS: RT-ALBUTEROL SULF 2.5 MG/3 ML PRE-MIX VIAL INH PRN (21:06)
[2016-04-06 23:40] VITALS: BP 125/83
[2016-04-07] MEDS: RT-ALBUTEROL SULF 2.5 MG/3 ML PRE-MIX VIAL INH SCH ×5 (01:12→19:24)
[2016-04-07] MEDS: ONDANSETRON 4 MG/2 ML (SDV) Z0FRAN IVP PRN ×2 (03:57→19:15)
[2016-04-07 04:00] VITALS: BP 135/80
[2016-04-07] MEDS: HYDROcodone/APAP 10 MG/325 MG (LORTAB) TAB PO PRN ×2 (04:02→08:37)
[2016-04-07] MEDS: PROMETHAZINE/ CODEINE SYRUP 5 ML UDC PO PRN (04:02)
[2016-04-07 04:24] LABS: MEAN PLATELET VOLUME 10.9 FL (7.4-10.4); RED BLOOD COUNT 3.08 10^6/uL (4.35-5.85); RED CELL DISTRIBUTION WIDTH 15.8 % (10.0-14.5); WHITE BLOOD COUNT 8.1 10^3/uL (4.3-11.0)
[2016-04-07 04:41] LABS: ALANINE AMINOTRANSFERASE 47 U/L (0-55); ALBUMIN 3.3 G/DL (3.2-4.5); ANION GAP 11 MMOL/L (5-14); ASPARTATE AMINO TRANSFERASE 46 U/L (5-34); BILIRUBIN,TOTAL 0.4 MG/DL (0.1-1.0); BLOOD UREA NITROGEN 17 MG/DL (7-18); BUN/CREATININE RATIO 24; CALCIUM 10.4 MG/DL (8.5-10.1); CARBON DIOXIDE 33 MMOL/L (21-32); CHLORIDE 94 MMOL/L (98-107); CREATININE SERUM 0.72 MG/DL (0.60-1.30); GFR ESTIMATED > 60; GLUCOSE 125 MG/DL (70-105); POTASSIUM 4.4 MMOL/L (3.6-5.0); SODIUM 138 MMOL/L (135-145); TOTAL PROTEIN 5.8 G/DL (6.4-8.2)
[2016-04-07] MEDS: KCL 10 MEQ TAB (MICRO K) PO SCH ×3 (06:32→20:40)
[2016-04-07] MEDS: LACTOBACILLUS Acidoph/Bulgar (LACTINEX/FLORANEX) TAB PO SCH ×3 (06:32→12:37)
[2016-04-07] MEDS: FUROSEMIDE 40 MG/4 ML INJ (LASIX) IVP SCH ×2 (06:32→19:30)
[2016-04-07] MEDS ORDERED: PANTOPRAZOLE 20 MG TABLET (PROTONIX) PO SCH (07:00)
[2016-04-07] MEDS: RT-ADVAIR HFA 115/21 MCG PER PUFF IH SCH ×2 (07:22→19:24)
[2016-04-07] MEDS: fentaNYL INJECTION 1,000 MCG in NS (IVPB) 80 ML INJ SCH (07:23)
[2016-04-07 08:00] VITALS: BP 148/84
--- NOTE | 2016-04-07 08:33 | Progress Note (SOAP) ---
Subjective Subjective/Events-last exam PT COMPLAINS OF PAIN - IN LEGS, BACK, LEFT LEG WORSE THAN RIGHT. SHE STATES THAT SHE HAS A LOT OF NAUSEA, DECREASED APPETITE. SHE STILL HAS QUITE A BIT OF SHORTNESS OF BREATH. HER DAUGHTER REPORTS A REALLY BAD NIGHT LAST NIGHT WITH SIGNIFICANT RESTLESSNESS. Review of Systems General: Fatigue Malaise Pulmonary: Dyspnea Cough Cardiovascular: : Chest Pain (WITH DEEP INSPIRATION) Gastrointestinal: : Nausea Musculoskeletal: : back pain: leg pain Neurological: : Weakness Objective Exam Vital Signs Date Time Temp Pulse Resp B/P Pulse Ox O2 Delivery O2 Flow Rate FiO2 04/07/16 07:19 96 Nasal Cannula 5.00 04/07/16 05:42 20 04/07/16 04:00 98.1 123 20 135/80 97 Nasal Cannula 4.50 04/07/16 01:12 95 Nasal Cannula 5.00 04/06/16 23:40 98.2 129 16 125/83 95 Nasal Cannula 4.50 04/06/16 22:00 20 04/06/16 21:06 96 Nasal Cannula 5.00 04/06/16 21:00 96 Nasal Cannula 5.00 04/06/16 20:15 99.1 129 20 117/76 95 Nasal Cannula 4.00 04/06/16 18:38 97 Nasal Cannula 5.00 04/06/16 18:00 98.5 127 20 124/69 97 Nasal Cannula 4.00 4.00 04/06/16 16:00 98.5 127 20 124/69 97 Nasal Cannula 4.00 04/06/16 15:03 95 Nasal Cannula 5.00 04/06/16 12:00 98.6 136 18 130/85 96 Nasal Cannula 4.00 04/06/16 10:39 92 Nasal Cannula 5.00 I & O 04/07/16 07:00 Intake Total 2280 ml Output Total 3125 ml Balance -845 ml Capillary Refill : General Appearance: WD/WN HEENT: Pharynx Normal Neck: Supple Respiratory: Chest Non Tender Decreased Breath Sounds Cardiovascular: Regular Rate, Rhythm Gastrointestinal: normal bowel sounds soft Neurologic/Psychiatric: Alert Skin: Warm/Dry Results Lab Laboratory Tests 04/07/16 04:20: Alanine Aminotransferase (ALT/SGPT) 47, Albumin 3.3, Alkaline Phosphatase 101, Anion Gap 11, Aspartate Amino Transf (AST/SGOT) 46H, BUN/Creatinine Ratio 24, Blood Urea Nitrogen 17, Calcium Level 10.4H, Carbon Dioxide Level 33H, Chloride Level 94L, Creatinine 0.72, Estimat Glomerular Filtration Rate > 60, Glucose Level 125H, Hematocrit 30L, Hemoglobin 9.2L, Mean Corpuscular Hemoglobin 30, Mean Corpuscular Hemoglobin Concent 31L, Mean Corpuscular Volume 96, Mean Platelet Volume 10.9H, Platelet Count 33*L, Potassium Level 4.4, Red Blood Count 3.08L, Red Cell Distribution Width 15.8H, Sodium Level 138, Total Bilirubin 0.4, Total Protein 5.8L, White Blood Count 8.1 Assessment/Plan Assessment/Plan Assess & Plan/Chief Complaint SEPSIS LEUKOCYTOSIS HYDROPNEUMOTHORAX POST-OBSTRUCTIVE PNEUMONIA SMALL CELL LUNG CANCER DYSPNEA HYPOTENSION TACHYCARDIA CHEST PAIN CHRONIC NAUSEA UNCONTROLLED CHEST WALL PAIN SEPSIS - IMPROVED- , CONTINUE WITH IV FLUIDS, AND LEVAQUIN HYDROPNEUMOTHORAX -WITH PNEUMONIA - CONTINUE WITH TREATMENT OF POST- OBSTRUCTIVE PNEUMONIA. SMALL CELL LUNG CANCER - PT NOT DUE TO REPEAT CHEMOTHERAPY UNTIL 04/05/16, DR. CAT CONSULTED - SEE NOTES FROM DR. CAT - CHEMOTHERAPY WILL HAVE TO BE ON HOLD UNTIL HER PLATELETS IMPROVE. COUGH - CONTINUE WITH CURRENT COUGH MEDICATIONS POST-OBSTRUCTIVE PNEUMONIA -STARTED ON ANTIBIOTICS COPD DUE TO PERSISTENT TOBACCOISM - MONITOR SYMPTOMS UNCONTROLLED PAIN - INCREASED DOSE OF HYDROCODONE FROM 7.5MG TO 10MG- FENTANYL NOT CONTROLLING PAIN - DC AND START DILAUDID ACADEMIC ADVISOR CHRONIC NAUSEA - RESTARTED ZOFRAN, SCOPOLAMINE PATCH, PROMETHAZINE ANEMIA -POST TRANSFUSION - STABLE THROMBOCYTOPENIA - WORSENING PLTS OF 33 TODAY SEVERE BACK PAIN WITH LEG WEAKNESS - CT OF SPINE SHOWED A COMPRESSION FRACTURE AT L4 - PAIN STILL INTENSE, BUT DID IMPROVE SLIGHTLY WITH THE LIDOCAINE PATCH ON HER BACK AND ALSO WITH NEURONTIN CONTINUE WITH PRN TORADOL, MONITOR SYMPTOMS CLOSELY. I HAVE DISCUSSED WITH THE PT AND HER DAUGHTERS - THEY ARE ALL AWARE OF THE GRAVITY OF THE ILLNESS, ROSIBEL CONTINUES TO WANT TO TRY CHEMOTHERAPY AT THIS TIME AND YET UNDERSTANDS HOW BAD HER CANCER IS WITH THE EXTENT OF THE ILLNESS CURRENTLY. Diagnosis/Problems: TYSON TALAMANTES MD Apr 07, 2016 08:33
[2016-04-07] MEDS: PROMETHAZINE INJ 25 MG/ML (PHENERGAN) AMP IVP PRN ×3 (08:36→21:51)
[2016-04-07] MEDS: ALPRAZolam 0.5 MG (XANAX) TAB PO SCH ×3 (08:37→20:40)
[2016-04-07] MEDS: GABAPENTIN 100 MG (NEURONTIN) CAP PO SCH ×3 (08:37→20:39)
[2016-04-07] MEDS ORDERED: SENNA W/DOCUSATE (SENOKOT S) TABLET PO SCH (09:00)
[2016-04-07] MEDS ORDERED: HYDROmorphone PF INJECTION 40 MG in NS (IVPB) 96 ML IV SCH (09:30)
[2016-04-07] MEDS ORDERED: HYDROmorphone (DILAUDID) 2 MG/ML VIAL IVP NR (09:30)
[2016-04-07] MEDS: LIDOCAINE (LIDODERM) 5% PATCH TOP SCH (09:37)
[2016-04-07] MEDS: DICLOFENAC 1% GEL 100 GM (VOLTAREN) TUBE TP SCH ×4 (09:41→21:00)
[2016-04-07] MEDS: meTOprolol TARTRATE 25 MG (LOPRESSOR) TABLET PO SCH ×2 (09:48→20:40)
[2016-04-07] MEDS: RT-ALBUTEROL SULF 2.5 MG/3 ML PRE-MIX VIAL INH PRN ×2 (11:41→21:56)
[2016-04-07 12:04] VITALS: BP 165/90
[2016-04-07] MEDS: SENNA W/DOCUSATE (SENOKOT S) TABLET PO SCH ×2 (12:26→20:40)
[2016-04-07] MEDS: KETOROLAC 15 MG/ML VIAL IVP PRN (12:36)
[2016-04-07] MEDS: LEVOFLOXACIN 750 MG/150 ML IV 150 ML IV SCH (12:37)
[2016-04-07] MEDS ORDERED: ONDANSETRON 16 MG, DEXAMETHASONE 10 MG/NS 50 ML IVPB IV SCH ×3 (14:00)
[2016-04-07] MEDS ORDERED: ONDANSETRON MDV (CANCER CENTER 16 MG, DEXAMETHASONE PF INJ (CANCER C 12 MG in NS (IVPB)... IV SCH (14:00)
[2016-04-07] MEDS ORDERED: LORazepam 0.5 MG (ATIVAN) TABLET CANCER CTR PO PRN (14:00)
[2016-04-07] MEDS ORDERED: FAMOTIDINE 20MG/2ML IV (CANCER CTR) IV SCH (14:00)
[2016-04-07] MEDS ORDERED: NS IV 500 ML (CANCER CENTER) IV SCH (14:00)
[2016-04-07] MEDS ORDERED: TOPOTECAN HCL IV ONE (14:01)
[2016-04-07] MEDS ORDERED: NS IV ONE (14:01)
--- NOTE | 2016-04-07 15:29 | Occ Therapy Progress Note ---
Therapy Progress Note Attempted to see pt. this date. Family in room and requests that OT lets pt sleep. States that she will be going down to chemotherapy soon. Will attempt back tomorrow. 1, visit 1500 LASHAWN HAYNES OT Apr 07, 2016 15:29
[2016-04-07 16:00] VITALS: BP 129/79
--- NOTE | 2016-04-07 17:22 | Progress Note (SOAP) ---
Subjective Subjective/Events-last exam States she wants to proceed with active treatment when informed of the preliminary but very abnormal findings of her bone marrow. Bone marrow aspirate smears show 80-90% cellularity when she should have no more than 40% cellularity and smear should show a heterogenous population of normal marrow elements which hers does not. Platelet count will not improve because normal marrow elements have been crowded out by tumor involvement. Patient's family also present during discussion. Objective Exam Vital Signs Date Time Temp Pulse Resp B/P Pulse Ox O2 Delivery O2 Flow Rate FiO2 04/07/16 17:11 22 04/07/16 16:00 97.8 121 20 129/79 94 Nasal Cannula 4.50 04/07/16 13:52 95 Nasal Cannula 5.00 04/07/16 12:04 97.2 127 20 165/90 94 Nasal Cannula 4.50 04/07/16 11:41 93 Nasal Cannula 5.00 04/07/16 08:00 98.3 123 18 148/84 96 Nasal Cannula 4.50 04/07/16 07:19 96 Nasal Cannula 5.00 04/07/16 05:42 20 04/07/16 04:00 98.1 123 20 135/80 97 Nasal Cannula 4.50 04/07/16 01:12 95 Nasal Cannula 5.00 04/06/16 23:40 98.2 129 16 125/83 95 Nasal Cannula 4.50 04/06/16 22:00 20 04/06/16 21:06 96 Nasal Cannula 5.00 04/06/16 21:00 96 Nasal Cannula 5.00 04/06/16 20:15 99.1 129 20 117/76 95 Nasal Cannula 4.00 04/06/16 18:38 97 Nasal Cannula 5.00 04/06/16 18:00 98.5 127 20 124/69 97 Nasal Cannula 4.00 4.00 I & O 04/07/16 07:00 Intake Total 2280 ml Output Total 3125 ml Balance -845 ml Capillary Refill : General Appearance: Chronically ill Respiratory: Crackles Decreased Breath Sounds Wheezing Cardiovascular: Tachycardia Gastrointestinal: normal bowel sounds non tender soft Neurologic/Psychiatric: Oriented x3 (Patient was oriented earlier this morning but after Phenergan became drowsy but arousable;) Results Lab Laboratory Tests 04/07/16 04:20: Alanine Aminotransferase (ALT/SGPT) 47, Albumin 3.3, Alkaline Phosphatase 101, Anion Gap 11, Aspartate Amino Transf (AST/SGOT) 46H, BUN/Creatinine Ratio 24, Blood Urea Nitrogen 17, Calcium Level 10.4H, Carbon Dioxide Level 33H, Chloride Level 94L, Creatinine 0.72, Estimat Glomerular Filtration Rate > 60, Glucose Level 125H, Hematocrit 30L, Hemoglobin 9.2L, Mean Corpuscular Hemoglobin 30, Mean Corpuscular Hemoglobin Concent 31L, Mean Corpuscular Volume 96, Mean Platelet Volume 10.9H, Platelet Count 33*L, Potassium Level 4.4, Red Blood Count 3.08L, Red Cell Distribution Width 15.8H, Sodium Level 138, Total Bilirubin 0.4, Total Protein 5.8L, White Blood Count 8.1 Assessment/Plan Assessment/Plan Assess & Plan/Chief Complaint 1. 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 a. Status post one cycle of cisplatin and Etoposide administered on through . b. Patient was due for Cycle 2 on 04/05/16 but was ineligible for chemo with platelet count of 55,000 which has dropped further to 33,000 today. c. Because of worsening bone marrow involvement and lack of response to Cisplatin and etoposide in lung findings, we will switch to Topotecan; 2. Worsening thrombocytopenia- consistent with bone marrow infiltration; Patient is eligible for chemotherapy with platelet count below 100,000 in this clinical setting of bone marrow infiltration. 3. Large left malignant pleural effusion--will monitor ; Pulmonary is following. 4. Fever/ Postobstructive pneumonia-- will complete IV Levofloxacin on . 5. Symptomatic anemia-improved since transfusion; 6. Patient reports headache and worsening nausea-- MRI of the brain with contrast shows no intraparenchymal brain masses, right frontal region 0.7cm bony mets suggested however. Diagnosis/Problems: DANIA CAT MD Apr 07, 2016 17:22
[2016-04-07] MEDS: NS IV 1000 ML 1,000 ML IV SCH (19:27)
[2016-04-07 20:00] VITALS: BP 147/78
[2016-04-07] MEDS ORDERED: MELATONIN 3 MG TABLET PO SCH (21:00)
[2016-04-07] MEDS: LIDOCAINE PATCH REMOVAL TP SCH (21:50)
[2016-04-07] MEDS ORDERED: METOCLOPRAMIDE INJ 10 MG/2 ML (REGLAN) IVP ONE (22:15)
[2016-04-07] MEDS: PANTOPRAZOLE 40 MG/10 ML (PROTONIX) VIAL IV SCH (22:28)
[2016-04-08] VITALS: BP 135/95
[2016-04-08] MEDS: NS IV 1000 ML 1,000 ML IV SCH (00:39)
[2016-04-08] MEDS: KETOROLAC 15 MG/ML VIAL IVP PRN ×2 (00:43→09:27)
[2016-04-08] MEDS: RT-ALBUTEROL SULF 2.5 MG/3 ML PRE-MIX VIAL INH PRN ×2 (00:44→03:50)
[2016-04-08 04:00] VITALS: BP 122/77
[2016-04-08] MEDS ORDERED: FUROSEMIDE 40 MG/4 ML INJ (LASIX) IVP ONE (04:30)
[2016-04-08 04:40] LABS: BASOPHILS % (AUTO) 0 % (0-10); EOSINOPHILS % (AUTO) 0 % (0-10); LYMPHOCYTES # (AUTO) 1.4 X 10^3 (1.0-4.0); LYMPHOCYTES % (AUTO) 13 % (12-44); MEAN CORPUSCULAR HEMOGLOBIN 29 PG (25-34); MEAN CORPUSCULAR HGB CONC 31 G/DL (32-36); MEAN CORPUSCULAR VOLUME 96 FL (80-99); MEAN PLATELET VOLUME 11.6 FL (7.4-10.4); MONOCYTES % (AUTO) 9 % (0-12); NEUTROPHILS # (AUTO) 8.3 X 10^3 (1.8-7.8); NEUTROPHILS % (AUTO) 77 % (42-75); RED BLOOD COUNT 3.43 10^6/uL (4.35-5.85); RED CELL DISTRIBUTION WIDTH 15.6 % (10.0-14.5); WHITE BLOOD COUNT 10.8 10^3/uL (4.3-11.0)
[2016-04-08 04:46] LABS: PLATELET COUNT 27 10^3/uL (130-400)
[2016-04-08 04:55] LABS: CALCIUM 11.3 MG/DL (8.5-10.1); CREATININE SERUM 1.02 MG/DL (0.60-1.30); MAGNESIUM 1.7 MG/DL (1.8-2.4); POTASSIUM 5.1 MMOL/L (3.6-5.0)
[2016-04-08] MEDS ORDERED: RT-ALBUTEROL SULF 2.5 MG/3 ML PRE-MIX VIAL INH SCH (06:00)
[2016-04-08] MEDS: RT-ADVAIR HFA 115/21 MCG PER PUFF IH SCH ×2 (06:26→06:39)
[2016-04-08] MEDS ORDERED: LORazepam INJ 2 MG/ML (ATIVAN) VIAL IVP PRN (08:30)
[2016-04-08] MEDS ORDERED: SALIVA STIMULANT MOUTH SPRAY (BIOTENE) 1.5 OZ MM PRN (08:30)
--- NOTE | 2016-04-08 08:39 | Progress Note (SOAP) ---
Subjective Subjective/Events-last exam PT IS A 60 Y/O FEMALE WHO IS KNOWN TO ME FROM CLINIC AND PREVIOUS HOSPITALIZATIONS. ROSIBEL HAS SMALL CELL LUNG CANCER WITH METASTATIC DISEASE TO HER BONES WITH A PATHOLOGIC L4 COMPRESSION FRACTURE. ROSIBEL HAD SEVERE DISCOMFORT LAST NIGHT, SIGNIFICANT DYSPNEA AND WAS PLACED ON 12 LITERS OF OXYGEN BY OXYMASK LAST NIGHT. HER FAMILY, THIS MORNING WAS ALL GATHERED Review of Systems General: Fatigue HEENT: No Head Aches Pulmonary: Dyspnea Cardiovascular: No: Chest Pain Gastrointestinal: : Nausea Genitourinary: Other (SALINAS IN PLACE) Neurological: : Other (BACK PAIN) Objective Exam Vital Signs Date Time Temp Pulse Resp B/P Pulse Ox O2 Delivery O2 Flow Rate FiO2 04/08/16 06:26 93 OxyMask 10.00 04/08/16 04:00 97.4 111 17 122/77 96 Simple Mask 12.00 04/08/16 03:50 97 OxyMask 12.00 04/08/16 03:50 95 Nasal Cannula 5.00 04/08/16 03:24 92 04/08/16 00:46 95 Nasal Cannula 4.00 04/08/16 00:00 96.9 105 19 135/95 90 Nasal Cannula 5.00 04/07/16 22:00 22 04/07/16 21:56 92 Nasal Cannula 5.00 04/07/16 21:00 95 Nasal Cannula 5.00 04/07/16 20:00 96.8 129 16 147/78 92 Nasal Cannula 4.50 04/07/16 19:25 95 Nasal Cannula 5.00 04/07/16 17:11 22 04/07/16 16:00 97.8 121 20 129/79 94 Nasal Cannula 4.50 04/07/16 14:00 22 04/07/16 13:52 95 Nasal Cannula 5.00 04/07/16 12:04 97.2 127 20 165/90 94 Nasal Cannula 4.50 04/07/16 11:41 93 Nasal Cannula 5.00 04/07/16 09:00 95 Room Air 5.00 I & O 04/08/16 07:00 Intake Total 940 ml Output Total 650 ml Balance 290 ml Capillary Refill : General Appearance: Mild Distress Respiratory: Decreased Breath Sounds (NO BREATH SOUNDS ON LEFT, WHEEZING ON RIGHT) Cardiovascular: Regular Rate, Rhythm Gastrointestinal: soft Neurologic/Psychiatric: Alert Oriented x3 Skin: Warm/Dry Lymphatic: No Adenopathy Results Lab Laboratory Tests 04/08/16 04:30: Anion Gap 14, BUN/Creatinine Ratio 26, Basophils # (Auto) 0.0, Basophils (%) ( Auto) 0, Blood Urea Nitrogen 27H, Calcium Level 11.3H, Carbon Dioxide Level 30, Chloride Level 93L, Creatinine 1.02, Eosinophils # (Auto) 0.0, Eosinophils (%) ( Auto) 0, Estimat Glomerular Filtration Rate 55, Glucose Level 140H, Hematocrit 33L, Hemoglobin 10.1L, Lymphocytes # (Auto) 1.4, Lymphocytes (%) (Auto) 13, Magnesium Level 1.7L, Mean Corpuscular Hemoglobin 29, Mean Corpuscular Hemoglobin Concent 31L, Mean Corpuscular Volume 96, Mean Platelet Volume 11.6H, Monocytes # (Auto) 1.0, Monocytes (%) (Auto) 9, Neutrophils # (Auto) 8.3H, Neutrophils (%) (Auto) 77H, Platelet Count 27*L, Potassium Level 5.1H, Red Blood Count 3.43L, Red Cell Distribution Width 15.6H, Smear Scan YES, Sodium Level 137, White Blood Count 10.8 Assessment/Plan Assessment/Plan Assess & Plan/Chief Complaint SEPSIS LEUKOCYTOSIS HYDROPNEUMOTHORAX POST-OBSTRUCTIVE PNEUMONIA SMALL CELL LUNG CANCER DYSPNEA HYPOTENSION TACHYCARDIA CHEST PAIN CHRONIC NAUSEA UNCONTROLLED CHEST WALL PAIN SEPSIS - IMPROVED- , CONTINUE WITH IV FLUIDS, AND LEVAQUIN HYDROPNEUMOTHORAX -WITH PNEUMONIA - CONTINUE WITH TREATMENT OF POST- OBSTRUCTIVE PNEUMONIA. SMALL CELL LUNG CANCER - PT NOT DUE TO REPEAT CHEMOTHERAPY UNTIL 04/05/16, DR. CAT CONSULTED - SEE NOTES FROM DR. CAT -FAMILY DECIDED TO START ON COMFORT CARE. COUGH - CONTINUE WITH CURRENT COUGH MEDICATIONS COPD DUE TO PERSISTENT TOBACCOISM - MONITOR SYMPTOMS UNCONTROLLED PAIN - INCREASED DOSE OF HYDROCODONE FROM 7.5MG TO 10MG- FENTANYL NOT CONTROLLING PAIN - DC AND START DILAUDID FAMILY PRACTICE MEDICAL DOCTOR CHRONIC NAUSEA - RESTARTED ZOFRAN, SCOPOLAMINE PATCH, PROMETHAZINE ANEMIA -POST TRANSFUSION - STABLE THROMBOCYTOPENIA - WORSENING PLTS OF 27 TODAY SEVERE BACK PAIN WITH LEG WEAKNESS - CT OF SPINE SHOWED A COMPRESSION FRACTURE AT L4 - PAIN STILL INTENSE, STARTED ON DILAUDID FAMILY PRACTICE MEDICAL DOCTOR TODAY THE FAMILY HAS DECIDED TO START ON COMFORT CARE ROSIBEL HAS TAKEN A DRASTIC TURN AND THEY WOULD LIKE TO JUST KEEP HER COMFORTABLE. Diagnosis/Problems: TYSON TALAMANTES MD Apr 08, 2016 08:39
[2016-04-08] MEDS ORDERED: PATCH REMOVAL TP SCH ×2 (08:59)
[2016-04-08] MEDS ORDERED: SCOPOLAMINE 1.5 MG (TRANSDERM-SCOP) PATCH TOP SCH ×2 (09:00)
[2016-04-08] MEDS: GLYCOPYRROLATE 0.2 MG/ML (ROBINUL) 2 ML VIAL IV PRN ×2 (09:23→17:47)
[2016-04-08] MEDS: PANTOPRAZOLE 40 MG/10 ML (PROTONIX) VIAL IV SCH (09:27)
[2016-04-08] MEDS: LIDOCAINE (LIDODERM) 5% PATCH TOP SCH (09:28)
[2016-04-08] MEDS: DICLOFENAC 1% GEL 100 GM (VOLTAREN) TUBE TP SCH ×3 (09:28→17:00)
--- NOTE | 2016-04-08 13:27 | Progress Note (SOAP) ---
Subjective Subjective/Events-last exam Events of last evening noted incuding uncontrolled pain, worsening dyspnea, agitation and altered mental status. Family is at bedside. Patient awoke earlier this morning and said, "So I am dying". Chemotherapy with-held given patient's rapid deterioration with increasing tumor load. Objective Exam Vital Signs Date Time Temp Pulse Resp B/P Pulse Ox O2 Delivery O2 Flow Rate FiO2 04/08/16 08:51 Nasal Cannula 2.00 04/08/16 06:26 93 OxyMask 10.00 04/08/16 04:00 97.4 111 17 122/77 96 Simple Mask 12.00 04/08/16 03:50 97 OxyMask 12.00 04/08/16 03:50 95 Nasal Cannula 5.00 04/08/16 03:24 92 04/08/16 00:46 95 Nasal Cannula 4.00 04/08/16 00:00 96.9 105 19 135/95 90 Nasal Cannula 5.00 04/07/16 22:00 22 04/07/16 21:56 92 Nasal Cannula 5.00 04/07/16 21:00 95 Nasal Cannula 5.00 04/07/16 20:00 96.8 129 16 147/78 92 Nasal Cannula 4.50 04/07/16 19:25 95 Nasal Cannula 5.00 04/07/16 17:11 22 04/07/16 16:00 97.8 121 20 129/79 94 Nasal Cannula 4.50 04/07/16 14:00 22 04/07/16 13:52 95 Nasal Cannula 5.00 I & O 04/08/16 07:00 Intake Total 940 ml Output Total 650 ml Balance 290 ml Capillary Refill : General Appearance: Chronically ill Mild Distress (Patient has labored breathing;) HEENT: Other (right eye prosthesis; left eye reactive;) Respiratory: Crackles Decreased Breath Sounds Wheezing Cardiovascular: Tachycardia Gastrointestinal: normal bowel sounds non tender soft no organomegaly Extremity: Normal Inspection Non Tender Swelling Results Lab Laboratory Tests 04/07/16 04:20 04/08/16 04:30 Laboratory Tests 04/08/16 04:30: Anion Gap 14, BUN/Creatinine Ratio 26, Basophils # (Auto) 0.0, Basophils (%) ( Auto) 0, Blood Urea Nitrogen 27H, Calcium Level 11.3H, Carbon Dioxide Level 30, Chloride Level 93L, Creatinine 1.02, Eosinophils # (Auto) 0.0, Eosinophils (%) ( Auto) 0, Estimat Glomerular Filtration Rate 55, Glucose Level 140H, Hematocrit 33L, Hemoglobin 10.1L, Lymphocytes # (Auto) 1.4, Lymphocytes (%) (Auto) 13, Magnesium Level 1.7L, Mean Corpuscular Hemoglobin 29, Mean Corpuscular Hemoglobin Concent 31L, Mean Corpuscular Volume 96, Mean Platelet Volume 11.6H, Monocytes # (Auto) 1.0, Monocytes (%) (Auto) 9, Neutrophils # (Auto) 8.3H, Neutrophils (%) (Auto) 77H, Platelet Count 27*L, Potassium Level 5.1H, Red Blood Count 3.43L, Red Cell Distribution Width 15.6H, Smear Scan YES, Sodium Level 137, White Blood Count 10.8 Assessment/Plan Assessment/Plan Assess & Plan/Chief Complaint 1. 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 a. Status post one cycle of cisplatin and Etoposide administered on through . b. Patient was due for Cycle 2 on 04/05/16 but was ineligible for chemo with platelet count of 55,000 which has dropped further to 33,000. c. Because of rapidly advancing disease, chemotherapy has been discontinued ; Patient has been placed on comfort care. 2. Worsening thrombocytopenia secondary to bone marrow invasion/ increasing replacement with tumor; 3. Large left malignant pleural effusion--will monitor; Pulmonary is following. 4. Fever/ Postobstructive pneumonia--on IV levofloxacin. 5. Symptomatic anemia-improved since transfusion; 6. Patient reports headache and worsening nausea-- MRI of the brain with contrast done and showed no intraparenchymal mets, bleeds or infarct; Diagnosis/Problems: DANIA CAT MD Apr 08, 2016 13:27
--- NOTE | 2016-04-08 13:46 | Occ Therapy Progress Note ---
Therapy Progress Note Order cancelled by Dr Salcedo because pt moved to Comfort Care. DC OT. CHERRY WARD OT Apr 08, 2016 13:46
--- NOTE | 2016-04-08 13:50 | Therapy Team Discharge Summary ---
Therapy Discharge Summary Discharge Recommendations Date of Discharge April 08, 2016 Occupational Therapy OT was ordered by Dr Salcedo for strengthening, with goals set for energy conservation education, home exercise program for arms and bed mobility. Pt evaluated on 04-06-16, family refused OT on 04-07-16 and OT discontinued on because pt was put on Comfort Care. No goals were met. Eating, grooming and toileting not addressed by OT. OT Half-Way Goals Half-Way Goals Time Frame: Apr 20, 2016 1. Pt will be able to verbalize three ways that she can conserve her energy for home. Not met 2. Pt will be independent with home exercise program for UE strength as needed for ADLs. Not met 3. Pt will identify least restrictive and least painful method for getting in and out of bed. Not met 1=Demonstrate adherence to instructed precautions during ADL tasks. 2=Patient will verbalize/demonstrate understanding of assistive devices/ modifications for ADL. 3=Patient will improve strength/tolerance for activity to enable patient to perform ADL's. CHERRY WARD OT Apr 08, 2016 13:49
== END 2016-04-08 18:55 | disposition expired | DRG 871 ==
LOC: 4TH 09:16
PROVIDERS: ADMIT Family Medicine; ATTEND Family Medicine
PROC: 07DS3ZX Extraction of Vertebral Bone Marrow, Percutaneous Approach, Diagnostic (ICD-10-PCS; principal; 2016-04-06)
DX: A41.9 Sepsis, unspecified organism (principal); J44.0 Chronic obstructive pulmonary disease with (acute) lower respiratory infection; J18.9 Pneumonia, unspecified organism; J94.2 Hemothorax; C34.92 Malignant neoplasm of unspecified part of left bronchus or lung; J91.0 Malignant pleural effusion; C78.7 Secondary malignant neoplasm of liver and intrahepatic bile duct; J98.11 Atelectasis; Z66 Do not resuscitate; C79.51 Secondary malignant neoplasm of bone; M84.58XA Pathological fracture in neoplastic disease, other specified site, initial encounter for fracture; D64.9 Anemia, unspecified; I10 Essential (primary) hypertension; K21.9 Gastro-esophageal reflux disease without esophagitis; R11.0 Nausea; R51 Headache; D69.6 Thrombocytopenia, unspecified; Z86.73 Personal history of transient ischemic attack (TIA), and cerebral infarction without residual deficits; Z85.840 Personal history of malignant neoplasm of eye; Z87.891 Personal history of nicotine dependence; Z51.5 Encounter for palliative care
CPT/HCPCS: 36415; 70553; 80048; 80053; 83735; 85025; 85027; 94640; 94760